=== PATIENT | female | born 1935 | race Caucasian/White ===

== ENCOUNTER 2017-03-03 20:04 | Inpatient (IN) | payer MEDICARE ==
[2017-03-03 20:55] LABS: Hematocrit 34.3 % (36.0-47.0); Red Blood Cell (RBC) Count 3.21 mill/uL (4.20-5.40); White Blood Cell (WBC) Count 7.3 thou/uL (4.8-10.8)
[2017-03-03 20:58] LABS: Prothrombin Time 32.3 SEC (12.0-14.7)
--- NOTE | 2017-03-03 21:02 | RAD ---
ONE VIEW CHEST: History: Difficulty breathing. Comparison: 08-22-16, 08-01-16 FINDINGS: Cardiomegaly. Sternotomy wires are noted. There is atherosclerosis of the aorta. Persistent fullness at the AP window which may represent enlarged atrial appendage versus pulmonary vascular prominence. Findings are similar to previous exam. Small right sided pleural effusion. Left costophrenic angle is clear. Chronic changes in the lung pa renchymal are noted. No pneumothorax. IMPRESSION: 1. Emphysema. 2. Cardiomegaly. Pulmonary vascular prominence. 3. Chronic changes in the right lung base. POS: [facility]
[2017-03-03 21:06] LABS: #Eosinphils 0.1 thou/uL (0.0-0.7); #Lymphocytes 0.4 thou/uL (1.20-3.40); #Monocytes 0.7 thou/uL (0.11-0.59); #Neutrophils 6.2 thou/uL (1.40-6.50); %Eosinophils 0.7 % (0.0-10.0); %Monocytes 9.3 % (0.0-10.0); Macrocytosis SLIGHT = 6-15 cells (100X) (0-5/hpf); Mean Platelet Volume 7.7 fL (7.4-10.4)
[2017-03-03 21:07] LABS: Lactic Acid - Sepsis 1.4 mmol/L (0.5-2.2)
[2017-03-03 21:10] LABS: ALT (SGPT) 9 U/L (8-55); AST (SGOT) 20 U/L (5-34); Alkaline Phosphatase 124 U/L (40-150); Anion Gap 15 mmol/L (10-20); BUN (Urea Nitrogen) 22 mg/dL (9.8-20.1); Bilirubin, Total 1.2 mg/dL (0.2-1.2); CK (CPK) 41 U/L (29-168); Calc. Creatinine Clearance 0 mL/min (70-130); Calcium 8.6 mg/dL (7.8-10.44); Carbon Dioxide 21 mmol/L (23-31); Chloride 103 mmol/L (98-107); Estimated GFR-MDRD 46; Globulin 3.4 g/dL (2.4-3.5); Protein, Total 7.1 g/dL (6.0-8.3)
[2017-03-03 21:15] LABS: Troponin I Less than 0.010 ng/mL (< 0.028)
[2017-03-03] MEDS ORDERED: Furosemide 40 MG/4 ML VIAL ONE (21:45)
[2017-03-03] MEDS ORDERED: Acetaminophen 325 MG TAB PO PRN (23:02)
[2017-03-03] MEDS ORDERED: Ondansetron ODT 4 MG TAB SL PRN (23:02)
[2017-03-03] MEDS ORDERED: Ondansetron HCl/PF 4 MG/2 ML Vial IVP PRN (23:02)
[2017-03-04] MEDS ORDERED: Furosemide 40 MG/4 ML VIAL SLOW IVP SCH (06:00)
[2017-03-04] MEDS ORDERED: cefTRIAXone\\ROCEPHIN 1 GM in Sodium Chloride 0.9% 100 ML IVPB SCH (08:15)
[2017-03-04] MEDS ORDERED: Aspirin 325 MG TAB PO SCH (09:00)
[2017-03-04] MEDS: cefTRIAXone\\ROCEPHIN 1 GM, Syringe 0.4 ML in Sterile Water 9.6 ML SLOW IVP SCH (09:51)
[2017-03-04] MEDS: Carvedilol 3.125 MG TAB PO SCH ×2 (09:52→20:17)
[2017-03-04] MEDS: Clopidogrel Bisulfate 75 MG TAB PO SCH (09:52)
[2017-03-04] MEDS: Azithromycin 500 MG in Sodium Chloride 0.9% 250 ML 250 ML IVPB SCH (09:53)
[2017-03-04] MEDS: Amlodipine 5 MG TAB PO SCH (10:03)
[2017-03-04] MEDS: Losartan Potassium 25 MG TAB PO SCH (10:03)
--- NOTE | 2017-03-04 10:10 | HP ---
DATE: 03/04/2017 at 0822 a.m. HISTORY OF PRESENT ILLNESS: This is an 81-year-old white female with a history of coronary artery d isease, atrial fibrillation who presents with shortness of breath. The patient has a history of atr ial fibrillation followed by Dr. Ward. She has been doing relatively well until approximately 3 weeks ago she developed a cough which has become progressively worse. At this point, she has had marked shortness of breath and difficulty walking. Her daughter finally convinced her to come to [facility]. She has been having a yellow productive cough as well as low grade fever and shortness of breath. She states she has been wheezing significantly. She does not complain of any direct mandi st pain. No complaints of any leg swelling. She is presently on Coumadin and aspirin for her atria l fibrillation. She also has been quite stressed caring for her debilitated . PAST MEDICAL HISTORY: Hypothyroidism, hyperlipidemia, hypertension, coronary artery disease, diabet es, diet controlled, anxiety disorder, chronic atrial fibrillation. PAST SURGICAL HISTORY: 07/2016 - Stent x1 in the obtuse marginal by Dr. Ward. In 06/2015 - [facility] ureteral stent and stone removal by Dr. Gonzales. In 2007, bilateral knee replacement, in 1998 a coronary artery bypass in [place], 1974 partial hysterectomy, in 1974 a cholecystectomy. FAMILY HISTORY: Mother with heart disease. Siblings with heart disease, sister with es ophageal cancer. SOCIAL HISTORY: She is . She has 4 kids. 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 They are wanting to move closer to [place] to their [facility] [employer]. She has no history of tobacco or alcohol use. Her time is spent mostly caring for her hus band. MEDICATIONS: Norvasc 2.5 daily, aspirin 81 daily, Coreg 3.125 b.i.d., Plavix 75 daily, Lasix 40 q.a .m., isosorbide 60 mg daily, levothyroxine 112 mcg daily, losartan 100 daily, pravastatin 40 daily, Zoloft 100 mg daily, Coumadin 2.5 daily. ALLERGIES: IODINE. PHYSICAL EXAMINATION: VITAL SIGNS: Temperature 99.0, pulse 84, respirations 18, pulse ox 95, blood pressure 157/77. GENERAL: Marked respiratory distress. HEENT: Marked nasal drainage and productive cough. TM clear. Throat clear. NECK: Supple. HEART: Irregularly irregular. LUNGS: With bilateral expiratory wheezes, cannot appreciate bibasilar rales. ABDOMEN: Soft, nontender. EXTREMITIES: With no edema. LABORATORY: White count 7.3, H\T\H 11 and 34. INR 3.0, sodium 135, potassium 4.2, creatinine of 1. 13, BUN 22, blood sugar 171. BNP 1025, D-dimer 2.0. ASSESSMENT: 1. Pneumonia, rule out pulmonary embolism. 2. Shortness of breath. 3. Chronic atrial fibrillation. 4. Coronary artery disease. 5. Anxiety. 6. Hypothyroid. 7. Hypertension. 8. Hyperlipidemia. PLAN: 1. Begin IV Rocephin and Zithromax. 2. Albuterol q.4h. 3. VQ scan. The patient is allergic to IODINE. Steroids, Solu-Medrol 40 q.6h. CBC, comprehensive UA, TSH. 4. Consult Dr. Ward. With the patient's productive cough, marked nasal drainage, hoarseness, I feel the patient most like ly has an infectious process going on. It probably began as a viral type syndrome; however, it has progressed over the past 3 weeks. I will start antibiotics and breathing treatments on her as well as Solu-Medrol. Must also rule out pulmonary embolism and congestive heart failure. BNP and D-dime r are elevated; however, this also could be due to pneumonia. We will await Dr. Ward's further recommendation.
[2017-03-04] MEDS ORDERED: Levothyroxine Sodium 112 MCG TAB PO SCH (10:15)
[2017-03-04] MEDS: Albuterol Sulfate 1.25 MG/3 ML NEB NEB PRN ×2 (15:01→23:33)
--- NOTE | 2017-03-04 15:24 | CON ---
DATE OF CONSULTATION: 03/04/2017 REASON FOR CONSULTATION: Atrial fibrillation. REFERRING PROVIDER: Suleman Cabral M.D. HISTORY OF PRESENT ILLNESS: Ms. Mansfield is an 81-year-old woman who was seen and evaluated after ronic persistent atrial fibrillation. She is on Coumadin therapy. She recently presented with the URI-type symptoms and potential pneumonia. She complains of fevers, chills, nausea, cough and conge stion while at home. Heart rate has been in the 60s to 70s. PAST MEDICAL HISTORY: CAD, atrial fibrillation, hyperlipidemia, and hypertension, status post bypas s surgery, stent placement, knee surgery, cholecystectomy, and hysterectomy. ALLERGIES: IODINE. HOME MEDICATIONS: Include Nitrostat p.r.n., levothyroxine, Plavix, Lasix, sertraline, carvedilol, l osartan, pravastatin, Coumadin, Imdur and Norvasc. REVIEW OF SYSTEMS: Ten point review of systems reviewed and as above, otherwise negative. PHYSICAL EXAMINATION: GENERAL: Patient is a pleasant female who is in no acute distress. The patient appears his/her stated age. VITAL SIGNS: Blood pressure 110/66, pulse 69, temperature 98.7. NEUROLOGIC: The patient is alert and oriented times 3 with no focal neurologic deficits. HEENT: Sclerae without icterus. Mouth has moist mucous membranes with normal pallor. NECK: No JVD. Carotid upstroke brisk. No bruits bilaterally. LUNGS: Clear to auscultation with unlabored respirations. BACK: No scoliosis or kyphosis. CARDIAC: Irregularly irregular. No significant rubs, murmurs, thrills, or gallops noted throughout the precordium. PMI is not displ aced. There is no parasternal heave. ABDOMEN: Soft, nontender, nondistended. No peritoneal signs present. No hepatosplenomegaly. No abnormal striae. EXTREMITIES: 2+ femoral and 2+ dorsalis pedis pulses. No cyanosis, clubbing, or edema. SKIN: No gross abnormalities. PERTINENT LABORATORY DATA: Hemoglobin 11.3, creatinine 1.13. INR was 3.0. IMPRESSION: 1. Chronic atrial fibrillation. 2. ? Pneumonia. 3. Coronary artery disease. 4. Status post bypass surgery. RECOMMENDATIONS: From a CV standpoint, Ms. Mansfield appears stable. Her heart rate is in the 60s to 80s and appears rate controlled. Continue Coumadin as prescribed. Antibiotic therapy will be Dr. Suleman Cabral. Last echo dated 06/11/2016 with normal LVEF.
[2017-03-04] MEDS: Warfarin Sodium 2.5 MG TAB PO SCH (16:40)
--- NOTE | 2017-03-04 19:36 | NM ---
VQ SCAN: Date: 03/04/17 HISTORY: Dyspnea. TECHNIQUE: A ventilation perfusion scan was performed using 25.5 mCi Xenon-133 by inhalation for the ventilatio n study followed by the intravenous administration of 5.5 mCi technetium-99m MAA for the perfusion s can. FINDINGS: Correlation is made with the chest radiograph from previous day. There are small subsegmental defects in the left upper lobe and the right lower lobe. A small to mod erate segmental wedge-shaped pleural based perfusion defect is seen in the superior segment of the l eft lower lobe. This may be mismatched. There is mild tracer retention in the washout phase of the v entilation study. IMPRESSION: Intermediate probability for pulmonary embolism. POS: [facility]
[2017-03-04] MEDS: Atorvastatin Calcium 10 MG TAB PO SCH (20:17)
[2017-03-04] MEDS: Aspirin 81 mg Enteric Coated Tablet PO SCH (20:17)
[2017-03-05 05:18] LABS: Prothrombin Time 28.5 SEC (12.0-14.7)
[2017-03-05] MEDS: Levothyroxine Sodium 112 MCG TAB PO SCH (05:30)
[2017-03-05] MEDS: Albuterol Sulfate 1.25 MG/3 ML NEB NEB PRN (07:06)
[2017-03-05] MEDS ORDERED: Furosemide 40 MG TAB PO PRN (07:39)
[2017-03-05] MEDS: Warfarin Sodium 2.5 MG TAB PO SCH ×2 (08:02→19:51)
[2017-03-05 08:05] LABS: #Lymphocytes 0.4 thou/uL (1.20-3.40); #Monocytes 0.2 thou/uL (0.11-0.59); #Neutrophils 4.6 thou/uL (1.40-6.50); %Basophils 0.1 % (0.0-1.0); %Eosinophils 0.1 % (0.0-10.0); %Lymphocytes 6.7 % (21.0-51.0); %Monocytes 3.5 % (0.0-10.0); Hematocrit 35.7 % (36.0-47.0); Mean Platelet Volume 8.6 fL (7.4-10.4); Red Blood Cell (RBC) Count 3.34 mill/uL (4.20-5.40); White Blood Cell (WBC) Count 5.2 thou/uL (4.8-10.8)
[2017-03-05 08:26] LABS: Anion Gap 12 mmol/L (10-20); BUN (Urea Nitrogen) 34 mg/dL (9.8-20.1); Calc. Creatinine Clearance 44 mL/min (70-130); Carbon Dioxide 25 mmol/L (23-31); Chloride 101 mmol/L (98-107); Estimated GFR-MDRD 39
[2017-03-05] MEDS: Azithromycin 500 MG in Sodium Chloride 0.9% 250 ML 250 ML IVPB SCH (08:35)
[2017-03-05] MEDS: Furosemide 40 MG/4 ML VIAL SLOW IVP SCH (08:41)
[2017-03-05] MEDS: Amlodipine 5 MG TAB PO SCH (08:41)
[2017-03-05] MEDS: Clopidogrel Bisulfate 75 MG TAB PO SCH (08:42)
[2017-03-05] MEDS: Carvedilol 3.125 MG TAB PO SCH ×2 (08:42→22:17)
[2017-03-05] MEDS: Losartan Potassium 25 MG TAB PO SCH (08:43)
--- NOTE | 2017-03-05 09:08 | PRG ---
DATE OF SERVICE: 03/05/2017 SUBJECTIVE: Ms. Mansfield is doing better. Her heart rate appears to be well controlled. She is cur rently on antibiotic therapy for bronchitis versus pneumonia. She has been afebrile. OBJECTIVE: VITAL SIGNS: Blood pressure 139/96, pulse 88, temperature 96.5. LUNGS: Clear to auscultation. CARDIAC: Irregularly irregular. ABDOMEN: Soft, nontender, nondistended. EXTREMITIES: No edema. IMPRESSION: 1. Atrial fibrillation. 2. Bronchitis versus pneumonia. RECOMMENDATIONS: 1. Continue Coumadin to achieve an INR 2 to 3. 2. Continue aspirin 81 q.a.m. given history of CAD, status post bypass surgery, in addition to ator vastatin and carvedilol. 3. Continue Plavix given a stent implantation within the last year.
--- NOTE | 2017-03-05 10:29 | PRG ---
DATE OF SERVICE: 03/05/2017 SUBJECTIVE: The patient is doing much better this morning. She has much less labored breathing. S he is feeling much better. Cough has improved significantly. She has remained afebrile. OBJECTIVE: VITAL SIGNS: Temperature 96.5, pulse 89, respirations 16, pulse ox 98 O2 at 2 liters, blood pressur e 139/96. HEART: Irregularly irregular. LUNGS: Markedly decreased expiratory wheezes, decreased bibasilar rales. EXTREMITIES: Extremities with no edema. I's and O's in 1550, out 4830 for a balance of -3180. LABORATORY: Labs pending; CBC, BMP. ASSESSMENT: 1. Pneumonia. 2. Congestive heart failure with a urine output of 5 liters over the past 2 days. 3. Chronic atrial fibrillation. 4. Coronary artery disease. 5. Anxiety. 6. Hypothyroid. 7. Hypertension. 8. Hyperlipidemia. PLAN: 1. Continue antibiotics. 2. Decrease Solu-Medrol to q.8h. 3. Decrease breathing treatments. 4. VQ scan shows intermediate probability; I believe the patient does not have a PE. There is ques tionable mismatch in the right lower lung; however, in the right lower lung base there are chronic c hanges seen on the chest x-ray. 5. Will resume IV Lasix at [address] Ward wants to increase the dose to b.i.d. 6. Will recheck CBC and BMP today. 7. Repeat chest x-ray PA and lateral today. 8. Will continue to follow.
[2017-03-05] MEDS: cefTRIAXone\\ROCEPHIN 1 GM, Syringe 0.4 ML in Sterile Water 9.6 ML SLOW IVP SCH (11:05)
--- NOTE | 2017-03-05 12:01 | RAD ---
CHEST PA AND LATERAL: History: 81-year-old female with follow up pneumonia. Comparison: 08-22-16, 03-03-17 FINDINGS: Post underlying sternotomy with marked cardiomegaly and some prominence of the left atrium. Atherosc lerosis of the aorta with ectasia. Moderate stable right pleural effusion and slight left costophren ic angle blunting. No evidence for confluent pneumonia or overt edema. IMPRESSION: Stable marked cardiomegaly. Bilateral pleural effusions on the right side, stable. No evidence for c onfluent pneumonia. POS: [facility]
[2017-03-05] MEDS: Aspirin 81 mg Enteric Coated Tablet PO SCH (22:15)
[2017-03-05] MEDS: Atorvastatin Calcium 10 MG TAB PO SCH (22:15)
[2017-03-06] MEDS: Levothyroxine Sodium 112 MCG TAB PO SCH (05:50)
[2017-03-06] MEDS: Warfarin Sodium 2.5 MG TAB PO SCH ×2 (08:26→17:20)
[2017-03-06] MEDS: Carvedilol 3.125 MG TAB PO SCH ×2 (08:29→20:58)
[2017-03-06] MEDS: Furosemide 40 MG/4 ML VIAL SLOW IVP SCH (08:29)
[2017-03-06] MEDS: Losartan Potassium 25 MG TAB PO SCH (08:29)
[2017-03-06] MEDS: Amlodipine 5 MG TAB PO SCH (08:30)
[2017-03-06] MEDS: Clopidogrel Bisulfate 75 MG TAB PO SCH (08:30)
[2017-03-06] MEDS: cefTRIAXone\\ROCEPHIN 1 GM, Syringe 0.4 ML in Sterile Water 9.6 ML SLOW IVP SCH (08:30)
--- NOTE | 2017-03-06 08:34 | PRG ---
DATE OF SERVICE: 03/06/2017 SUBJECTIVE: The patient states she is feeling better than yesterday. She continues to improve slow ly. She does complain of constipation. She is anxious to go home. OBJECTIVE: VITAL SIGNS: Temperature 97.7, pulse 58, respirations 16, pulse ox 98 on 2 liters, blood pressure 1 17/70. HEART: Irregularly irregular. LUNGS: Occasional expiratory wheeze. ABDOMEN: Soft. EXTREMITIES: With no edema. LABORATORY: Labs from yesterday; white count 5.2, H\T\H 12 and 35. Sodium 134, potassium 4.1, crea tinine 1.3, BUN 34, blood sugar 206. ASSESSMENT: 1. Pneumonia/bronchitis, continues to improve. The congestion has improved. 2. Chronic atrial fibrillation. 3. Mild congestive heart failure. 4. Coronary artery disease. 5. Anxiety. 6. Hypothyroid. 7. Hypertension. 8. Hyperlipidemia. PLAN: 1. Patient anxious to go home. If the patient does well this afternoon we will consider discharge. 2. Plan to discharge on prednisone and cefdinir x7 days. 3. Discuss Lasix. The patient states she takes this sporadically because it causes her to have inc ontinence. Discussed the importance of taking this regularly. 4. Follow up in the office in 1 week.
--- NOTE | 2017-03-06 08:40 | PQF ---
CLINICAL DOCUMENTATION IMPROVEMENT CLARIFICATION FORM: ICD-10 Updated PLEASE DO AN ADDENDUM TO THE PROGRESS NOTE WITH ANY DOCUMENTATION UPDATES OR ADDITIONS AND CARRY THROUGH TO DC SUMMARY. THANK YOU. DATE: 03/06 ATTN: DR. BRENTON ROSEN Please exercise your independent, professional judgment in responding to the clarification form. Clinical indicators are provided on the bottom of this form for your review Please check appropriate box(s): HEART FAILURE: A.TYPE: [ ] Systolic / HFrEF [ ] Diastolic / HFpEF [ ] Combined Systolic / Diastolic B.ACUITY [ ] Acute[ ] Acute on Chronic [ ] Chronic C.WITH (if appropriate) [ ] Hypertensive Heart Disease[ ] Hypertensive Heart and Kidney Disease [ ] Other diagnosis [ ] Unable to determine For continuity of documentation, please document condition throughout progress notes and discharge summary. Thank You. CLINICAL INDICATORS - SIGNS / SYMPTOMS / LABS ER PRESENTATION 03/03: SOB FOR 3 WEEKS, RA SAT 93% ON ARRIVAL, IMPROVED TO 100 % ON 4L ER PHYSICIAN DOCUMENTATION 03/03: NEW ONSET CHF ATTENDING PHYSICIAN PN 03/05: IMPRESSION: 2. CHF WITH URINE OUTPUT OF 5 LITERS OVER PAST 2 DAYS PLAN: 5. WILL RESUME IV LASIX AT [address] SIMMONS WANTS TO CHANGE TO BID CXR 03/03: SMALL R PLEURAL EFFUSION. IMPRESSION: PULMONARY VASCULAR PROMINENCE BNP: 1025 (03/03); 1156 (03/05) RISKS: CAD S/P CABG & STENT HTN DM II TREATMENTS: IV LASIX (02/21 - PRESENT) TELEMETRY MONITORING ECHO (RESULTS PENDING) CARDIOLOGY CONSULT FOR NEW ONSET CHF THANK YOU! Rachel (This form is maintained as a part of the permanent medical record) 2014 [employer]. All Rights Reserved Rachel Dominguez RN, BSN [email or web address] Office: [phone] [facility]
--- NOTE | 2017-03-06 08:52 | PQF ---
CLINICAL DOCUMENTATION IMPROVEMENT CLARIFICATION FORM: ICD-10 Updated PLEASE DO AN ADDENDUM TO THE PROGRESS NOTE WITH ANY DOCUMENTATION UPDATES OR ADDITIONS AND CARRY THROUGH TO DC SUMMARY. THANK YOU. DATE: 03/06 ATTN: DR. BRENTON ROSEN Please exercise your independent, professional judgment in responding to the clarification form. Clinical indicators are provided on the bottom of this form for your review Please check appropriate box(s): [ ] Pneumonia secondary to (specify organism / underlying disease) [ ] Simple Pneumonia (community acquired - nosocomial) [ ] Bronchopneumonia [ ] Pneumonia of unknown etiology [ ] Other diagnosis [ ] Unable to determine For continuity of documentation, please document condition throughout progress notes and discharge summary. Thank You. CLINICAL INDICATORS - SIGNS / SYMPTOMS / LABS PHYSICIAN H&P DOCUMENTATION 03/04: ASSESSMENT: 1. PNEUMONIA, R/O PULMONARY EMBOLISM; 2. SHORTNESS OF BREATH PLAN: 1. BEGIN IV ROCEPHIN & ZITHROMAX PHYSICIAN PN 03/05: ASSESSMENT: 1. PNEUMONIA; PLAN: 1. CONTINUE ANTIBIOTICS RISK FACTORS ADVANCED AGE SOB W/COUGH X3 WEEKS TREATMENTS: IV ROCEPHIN & ZITHROMAX (03/03 - PRESENT) SUPPLEMENTAL OXYGEN (03/03 - PRESENT) THANK YOU! Rachel (This form is maintained as a part of the permanent medical record) 2014 [employer]. All Rights Reserved Rachel Dominguez RN, BSN [email or web address] Office: [phone] [facility]
[2017-03-06] MEDS: Azithromycin 500 MG in Sodium Chloride 0.9% 250 ML 250 ML IVPB SCH (09:45)
--- NOTE | 2017-03-06 13:29 | PRG ---
DATE OF SERVICE: 03/06/2017 SUBJECTIVE: Ms. Mansfield is doing well. She continues to complain of shortness of breath. No other associated ameliorating or exacerbating factors present. OBJECTIVE: VITAL SIGNS: Blood pressure 117/70, pulse 58 and temperature 97.7. LUNGS: Rales and bilateral wheezing present. HEART: Irregular, irregular. ABDOMEN: Soft, nontender and nondistended. EXTREMITIES: No edema. PERTINENT LABORATORY DATA: Hemoglobin 12. Creatinine 1.3 and potassium 4.1. Telemetry monitoring showed nonsustained VT. IMPRESSION: 1. Atrial fibrillation. 2. Bronchopneumonia. 3. Coronary artery disease. 4. Status post bypass surgery. 5. Nonsustained ventricular tachycardia. RECOMMENDATIONS: 1. Check magnesium, potassium and calcium level. 2. Avoid beta-francois therapy due to active wheezing. 3. Recommend an echo with Doppler to assess LV function and consider EP consult.
[2017-03-06 14:35] LABS: Calcium 8.9 mg/dL (7.8-10.44); Magnesium 2.4 mg/dL (1.6-2.6); Phosphorus 4.2 mg/dL (2.3-4.7)
[2017-03-06] MEDS: Aspirin 81 mg Enteric Coated Tablet PO SCH (20:53)
[2017-03-06] MEDS: Atorvastatin Calcium 10 MG TAB PO SCH (20:53)
[2017-03-07 05:02] LABS: Prothrombin Time 33.4 SEC (12.0-14.7)
[2017-03-07] MEDS: Levothyroxine Sodium 112 MCG TAB PO SCH (05:32)
--- NOTE | 2017-03-07 08:19 | PRG ---
DATE OF SERVICE: 03/07/2017 SUBJECTIVE: The patient continues to improve. Decreased cough and congestion. Breathing much easie r. OBJECTIVE: VITAL SIGNS: Temperature 98.0, pulse 62, respirations 20, pulse ox 94, blood pressure 124/72. HEART: Irregular, irregular. LUNGS: Relatively clear her upper airway noise, but lung bases sound much clearer today. ABDOMEN: Soft, nontender. EXTREMITIES: With no edema. LABORATORY: None. ASSESSMENT: 1. Brief run of nonsustained ventricular tachycardia yesterday, no reoccurrence overnight. 2. Bronchopneumonia. 3. Atrial fibrillation. 4. Coronary artery disease. 5. Mild congestive heart failure. 6. Anxiety. 7. Hypothyroid. 8. Hypertension. 9. Hyperlipidemia. PLAN: 1. We will discuss discharge with Dr. Ward. 2. Plan to discharge on cefdinir and a Medrol Dosepak. 3. If the patient remains in the hospital we will recheck chest x-ray and electrolytes. 4. Discussed with patient the importance of physical activity.
[2017-03-07] MEDS: Clopidogrel Bisulfate 75 MG TAB PO SCH (09:35)
[2017-03-07] MEDS: Amlodipine 5 MG TAB PO SCH (09:35)
[2017-03-07] MEDS: Losartan Potassium 25 MG TAB PO SCH (09:35)
[2017-03-07] MEDS: Azithromycin 500 MG in Sodium Chloride 0.9% 250 ML 250 ML IVPB SCH (09:39)
[2017-03-07] MEDS: Warfarin Sodium 2.5 MG TAB PO SCH ×2 (09:39→17:35)
[2017-03-07] MEDS: Carvedilol 3.125 MG TAB PO SCH (09:40)
[2017-03-07] MEDS: Furosemide 40 MG/4 ML VIAL SLOW IVP SCH (09:41)
[2017-03-07] MEDS: cefTRIAXone\\ROCEPHIN 1 GM, Syringe 0.4 ML in Sterile Water 9.6 ML SLOW IVP SCH (11:00)
--- NOTE | 2017-03-07 12:42 | PRG ---
DATE OF SERVICE: 03/07/2017 SUBJECTIVE: No significant changes noted overnight. PHYSICAL EXAMINATION: VITAL SIGNS: Blood pressure 120/70, pulse 60, temperature 98.2. LUNGS: Mild wheezing bilaterally. CARDIAC: Irregularly irregular. ABDOMEN: Soft, nontender, nondistended. EXTREMITIES: No edema. IMPRESSION: 1. Atrial fibrillation. 2. Nonsustained VT. 3. Accelerated idioventricular rhythm. RECOMMENDATIONS: Ms. Mansfield has been asymptomatic during her rhythm disturbance. Her LVEF is 50-55 %. Unfortunately, beta blockers cannot be used due to wheezing. We will continue to monitor closely . She did have RV pressure overload, but is not felt to be a new finding. This is felt to be chroni c. May consider an outpatient 3-week event recorder to assess for any further dysrhythmias. Would a dd beta francois therapy when not actively wheezing.
[2017-03-07 12:55] VITALS: BMI 27.2
[2017-03-07 17:27] VITALS: BP 135/68; TEMP 97.3
--- NOTE | 2017-03-07 21:03 | DIS ---
DATE OF ADMISSION: 03/03/2017 DATE OF DISCHARGE: 03/07/2017 DISCHARGE DIAGNOSES: 1. Brief run of nonsustained ventricular tachycardia, resolved. 2. Bronchopneumonia. 3. Atrial fibrillation. 4. Coronary artery disease. 5. Mild congestive heart failure. 6. Anxiety. 7. Hypothyroid. 8. Hypertension. 9. Hyperlipidemia. 10. Obesity. DISCHARGE MEDICATIONS: Cefdinir 300 b.i.d. #14, Medrol Dosepak, hold Coreg, Pravachol 40 q. day, Nor vasc 5 q. day, aspirin 81 q. day, Plavix 75 q. day, Lasix 40 q. day, isosorbide 60 q. day, losartan 1 00 q.a.m., sertraline 100 p.o. q.a.m., Coumadin 2.5 p.o. b.i.d. BRIEF HISTORY: This is an 81-year-old white female who presented with a 3-week history of cough, con gestion, and shortness of breath. This became progressively worse and presented to the emergency navid for further evaluation. She was complaining of yellow productive cough as well as low-grade fever. HOSPITAL COURSE: She was admitted. She was started on IV Zithromax and Rocephin. She was also star meghan on neb treatments for wheezing, as well as Solu-Medrol 40 q. 6 hours. Over several days, her michelle al congestion improved and her wheezing improved dramatically. She was also found to have an elevate d BNP and she was given additional doses of IV Lasix in which she diuresed approximately 5 liters in the first 48 hours. At this time, she is doing quite well. An echo was performed, which revealed mi ldly enlarged right ventricle, moderately enlarged right atrium, [id number] mitral regurg, myriam re tricuspid regurg, with an ejection fraction of 50%-55% as well as probable diastolic dysfunction. The patient is doing very well at this time. Her Coreg was held due to the wheezing. She will be d ischarged on the above medications. She will follow up with Dr. Ward as well as myself next wee k. We plan to resume her Coreg once her wheezing resolves. We plan to do an outpatient sleep study to evaluate if the patient has sleep apnea. Discharge white count 5.2, H&H 12 and 35. Sodium 134, p otassium 4.1, creatinine 1.3, BUN 34, blood sugar 206. Last INR 3.1.
== END 2017-03-07 18:20 | disposition home or self-care (01) | DRG 194 ==
LOC: ERS 20:04 → 2NO 21:30
PROVIDERS: ADMIT Family Medicine; ATTEND Family Medicine
DX: J18.0 Bronchopneumonia, unspecified organism (principal); I47.2 Ventricular tachycardia; I48.2 Chronic atrial fibrillation; I11.0 Hypertensive heart disease with heart failure; I50.9 Heart failure, unspecified; I08.1 Rheumatic disorders of both mitral and tricuspid valves; Z79.01 Long term (current) use of anticoagulants; I25.10 Atherosclerotic heart disease of native coronary artery without angina pectoris; Z95.1 Presence of aortocoronary bypass graft; Z95.5 Presence of coronary angioplasty implant and graft; E03.9 Hypothyroidism, unspecified; E78.5 Hyperlipidemia, unspecified; F41.9 Anxiety disorder, unspecified; E66.9 Obesity, unspecified; Z68.27 Body mass index [BMI] 27.0-27.9, adult; K59.00 Constipation, unspecified; Z96.653 Presence of artificial knee joint, bilateral; Z91.041 Radiographic dye allergy status
CPT/HCPCS: 36415; 71010; 71020; 78582; 80048; 80053; 82310; 82550; 82553; 83605; 83735; 83880; 84100; 84484; 85025; 85379; 85610; 85730; 87070; 87077; 87186; 87205; 93005; 93306; 93798; 94640; 94760; 96374; A4216; A9540; A9558; J0456; J0696; J1940; J2920; J7050; J7620

== ENCOUNTER 2017-06-11 08:19 | Outpatient (CLI) | payer MEDICARE ==
--- NOTE | 2017-06-11 09:54 | ULT ---
COMPLETE ABDOMINAL ULTRASOUND: History: Abdominal pain, distention. Comparison: CT abdomen/pelvis 07-02-15. Technique: Multiplanar grayscale and color doppler images were obtained in a complete abdominal ultra sound. FINDINGS: The liver is normal in echogenicity without focal lesions or intrahepatic ductal dilatation. The gall bladder has been removed. The common bile duct is normal measuring 4 mm. A small amount of ascites is seen in the abdomen. The aorta and inferior vena cava are normal in caliber. The visualized portions of the pancreas are u nremarkable. The spleen is normal in echogencity without focal lesions and measures 10.8 cm in length . The kidneys demonstrate normal cortical echogenicity. There is an echogenic focus in the lower pole o f the right kidney measuring 7 mm in size which could represent a nonobstructing renal stone. No calc ifications are seen in the left kidney. No hydronephrosis is seen on either side. The kidneys measure 8.4 and 10.0 cm in length on the right and left, respectively. IMPRESSION: 1. Possible nonobstructing right renal calcification. 2. The right kidney is smaller than the left which is nonspecific but it could represent chronic righ t kidney disease. 3. Small amount of ascites. POS: [facility]
== END 2017-06-11 08:20 | disposition home or self-care (01) ==
LOC: ULT 08:19
PROVIDERS: ATTEND Family Medicine
DX: R14.0 Abdominal distension (gaseous) (principal); R18.8 Other ascites
CPT/HCPCS: 76700

== ENCOUNTER 2017-06-14 10:49 | Outpatient (CLI) | payer MEDICARE | END 2017-06-14 10:50 | disposition home or self-care (01) | LOC: EDSTATUS 11:00 | PROVIDERS: ATTEND Family Medicine | DX: R53.1 Weakness (principal) | CPT/HCPCS: G8978; G8979; G8980 ==

== ENCOUNTER 2017-06-17 07:46 | Outpatient (CLI) | payer MEDICARE ==
[~2017-06-17 07:46] MED LIST: ISOVUE-370 76%-LOCM 1 ML ONE
== END 2017-06-17 07:47 | disposition home or self-care (01) ==
LOC: BICCT 07:46
PROVIDERS: ATTEND Family Medicine
DX: R19.00 Intra-abdominal and pelvic swelling, mass and lump, unspecified site (principal); K57.30 Diverticulosis of large intestine without perforation or abscess without bleeding; K76.0 Fatty (change of) liver, not elsewhere classified; N20.0 Calculus of kidney
CPT/HCPCS: 74177

== ENCOUNTER 2017-06-20 13:01 | Inpatient (IN) | payer MEDICARE ==
[2017-06-20 13:43] LABS: Base Excess-Venous 0.5 mmol/L (-30.0-30.0); Bicarbonate (HCO3v) 25.6 mmol/L (1.0-85.0); CO2 Tension (PvCO2) 41.9 mmHg (41.0-51.0); Calcium, Ionized 1.06 mmol/L (1.12-1.32); Hemoglobin - Calc 13.1 g/dL (12.0-18.0); O2 Tension (PvO2) 34.9 mmHg (35.0-45.0); Potassium 3.9 mmol/L (3.4-4.7); T. Carbon Dioxide 26.9 mmol/L (1.0-85.0); pH (Venous) 7.394 (7.35-7.45); vO2 Saturation-calc 66.7 % (0.0-100.0)
[2017-06-20 13:47] LABS: #Eosinphils 0.1 thou/uL (0.0-0.7); #Lymphocytes 0.6 thou/uL (1.20-3.40); #Monocytes 0.6 thou/uL (0.11-0.59); #Neutrophils 4.3 thou/uL (1.40-6.50); %Basophils 0.4 % (0.0-1.0); %Eosinophils 1.9 % (0.0-10.0); %Lymphocytes 11.1 % (21.0-51.0); %Monocytes 10.2 % (0.0-10.0); %Neutrophils 76.5 % (42.0-75.0); Hemoglobin 11.8 g/dL (12.0-16.0); Mean Corpuscular HGB CONC 32.3 g/dL (32.0-36.0); Mean Corpuscular Hemoglobin 34.2 pg (27.0-31.0); Mean Platelet Volume 7.8 fL (7.4-10.4); Platelet Count 146 thou/uL (130-400); RBC Distribution Width 13.1 % (11.5-14.5); Red Blood Cell (RBC) Count 3.45 mill/uL (4.20-5.40); White Blood Cell (WBC) Count 5.6 thou/uL (4.8-10.8)
--- NOTE | 2017-06-20 14:06 | RAD ---
PORTABLE AP CHEST X-RAY: 06/20/2017 HISTORY: Dyspnea. Increased weight gain and fluid overload. COMPARISON: 03/05/2017 FINDINGS: The cardiac silhouette remains markedly enlarged. The pulmonary vasculature is within normal limits. There has been an interval increase in pleural and parenchymal changes of the right lung base, like ly related to small to moderate sized right pleural effusion and atelectasis. The left lung remains clear. Vascular calcifications are seen in the thoracic aorta. Post surgical changes related to med michael sternotomy are again present. No other interval change. IMPRESSION: 1. Cardiomegaly without overt congestive heart failure. 2. Small to moderate sized right pleural effusion and atelectasis. The right pleural effusion does appear mildly increased from the prior exam. POS: [facility]
[2017-06-20 14:09] LABS: ALT (SGPT) 11 U/L (8-55); AST (SGOT) 25 U/L (5-34); Albumin 3.8 g/dL (3.4-4.8); Alkaline Phosphatase 125 U/L (40-150); Anion Gap 11 mmol/L (10-20); BUN (Urea Nitrogen) 25 mg/dL (9.8-20.1); Bilirubin, Total 1.3 mg/dL (0.2-1.2); CK (CPK) 25 U/L (29-168); Calc. Creatinine Clearance 0 mL/min (70-130); Carbon Dioxide 27 mmol/L (23-31); Chloride 105 mmol/L (98-107); Estimated GFR-MDRD 42; Globulin 3.2 g/dL (2.4-3.5); Glucose 114 mg/dL (83-110); Potassium 3.9 mmol/L (3.5-5.1); Sodium 139 mmol/L (136-145)
[2017-06-20 14:13] LABS: CKMB 1.5 ng/mL (0-6.6); Troponin I 0.027 ng/mL (< 0.028)
[2017-06-20] MEDS ORDERED: Furosemide 40 MG/4 ML VIAL ONE (15:31)
[2017-06-20 17:50] LABS: Troponin I 0.028 ng/mL (< 0.028)
[2017-06-20] MEDS ORDERED: Acetaminophen 325 MG TAB PO PRN (17:57)
[2017-06-20] MEDS ORDERED: Ondansetron ODT 4 MG TAB PO PRN (17:57)
[2017-06-20] MEDS ORDERED: HYDROcodone/Acetaminophen 5/325 mg Tablet PO PRN (17:57)
[2017-06-20 19:45] LABS: PTT 48.8 SEC (22.9-36.1); Prothrombin Time 32.8 SEC (12.0-14.7)
[2017-06-20 20:02] LABS: Troponin I 0.026 ng/mL (< 0.028)
[2017-06-20 20:31] LABS: Hep C IgG Ab Non-Reactive (NonReactive); Hep C Index 0.11 S/CO (0-0.79)
[2017-06-20] MEDS: Famotidine/PF 20 mg/2ml Vial SLOW IVP SCH (21:36)
[2017-06-20 21:42] VITALS: BMI 28.4
[2017-06-20 22:15] LABS: Hemoglobin 10.9 g/dL (12.0-16.0); Platelet Count 124 thou/uL (130-400)
--- NOTE | 2017-06-20 23:14 | HP ---
DATE OF ADMISSION: 06/20/2017 HISTORY OF PRESENT ILLNESS: This is an 81-year-old white female with history of severe tricuspid reg urg, coronary artery disease status post bypass, hypertension, hyperlipidemia, diabetes, who presents with shortness of breath. Patient has been seeing Dr. Ward for the past several years. Approx imately 1 year ago in 07/2016, she underwent a cardiac catheterization and had several stents placed. She has done well since then. Approximately 2 weeks ago, she noted that her abdomen was starting t o swell and she was complaining of increasing fatigue. Abdominal ultrasound was obtained at that [facility] and this was followed by a CAT scan. The CAT scan did reveal a dilated right ventricle as well as evidence of liver cirrhosis and small amount of ascites. She was seen 2 days ago in the office again complaining of increasing abdominal swelling. She was then referred to GI, but is yet to see Dr. Kumari whom she had seen in the distant past. However, last night, she began complaining of increasing abdominal swelling as well as increasing shortness of breath and difficulty breathing. Her legs wer e beginning to swell even more. She presented to the emergency room and noted to have an elevated BN P as well as slightly increasing right pleural effusion. The patient at this time is feeling somewha t better since she presented. She does report that over the past 2 days, she has had increasing abdo deb swelling as well as increasing lower extremity edema and shortness of breath. PAST MEDICAL HISTORY: Hypothyroidism; hyperlipidemia; hypertension; anxiety disorder; shingles; diab etes, diet-controlled; renal stones. PAST SURGICAL HISTORY: Include bilateral knee replacements 2007, bypass surgery in 1998, partial hys terectomy in 1974, cholecystectomy in 1974. Cardiac catheterization with stent placement in 07/[address] Lazaro. FAMILY HISTORY: Father is . Mother is with heart disease. Siblings with heart dis ease, sister with esophageal cancer. SOCIAL HISTORY: She has a distant tobacco history, quit in 1969. She does not drink alcohol. She a nd her are retired from the [employer]. She is . She has 2 sons, two cristhian ghters, 8 grandkids. [place] be closer to her [facility]. MEDICATIONS: Includes warfarin 5 mg every Saturday and Coumadin 2.5 mg all other days, Lasix 40 daily , isosorbide ER 60 mg daily, aspirin 81 mg daily, Plavix 75 mg daily, Zoloft 100 mg daily, levothyrox ine 112 daily, Nitrostat p.r.n., pravastatin 40 daily. ALLERGIES: IODINE. REVIEW OF SYSTEMS: As above. PHYSICAL EXAMINATION: GENERAL: Patient is in mild respiratory distress, sitting in a chair, feeling better than when she f irst presented. HEENT: Clear. NECK: Supple. HEART: Appears to be regular rate. LUNGS: With bibasilar rales with decreased breath sounds on the right base. ABDOMEN: Soft, appears to be more distended than 2 days' prior. EXTREMITIES: With 2+ edema. LABORATORY DATA AND X-RAY FINDINGS: White count 5.6, H&H 11 and 36, platelet 146. Sodium 139, potas sium 3.9, creatinine 1.22, BUN 25, blood sugar 114. BNP 965. AST 25, ALT 11. Chest x-ray shows sli ghtly increased right pleural effusion with cardiomegaly. ASSESSMENT: 1. Right-sided congestive heart failure with an elevated BNP of 965. Appears to be having increasin g right-sided pleural effusion as well as ascites. She just as her [facility] regurg with an elevated right ventricular pressure. Patient ascites may be as a result of right-sided heart failure. 2. Right pleural effusion. 3. Cardiomegaly. 4. Coronary artery disease, status post bypass in 1998. 5. Cardiac stents placed in 07/2016. 6. Ascites may be related to cirrhosis, possibly secondary to fatty liver. However, also may be sim ply to right-sided heart failure, also decided to be further worked up. 7. Hypertension. 8. Hyperlipidemia. 9. Diabetes, diet-controlled. Last A1c on 06/09 was 5.7. 10. Hypothyroid. 11. Atrial fibrillation. PLAN: 1. Consult Dr. Lazaro. 2. Consult Dr. Ward. 3. Echocardiogram. 4. Check INR. 5. See CT report. 6. Hepatitis studies, iron level, and urine culture. We will await further diagnostics and treatmen t per Dr. Ward and Dr. Lazaro.
[2017-06-21 05:49] LABS: #Eosinphils 0.1 thou/uL (0.0-0.7); #Lymphocytes 0.6 thou/uL (1.20-3.40); #Monocytes 0.7 thou/uL (0.11-0.59); #Neutrophils 3.4 thou/uL (1.40-6.50); %Basophils 0.2 % (0.0-1.0); %Eosinophils 1.5 % (0.0-10.0); %Lymphocytes 12.4 % (21.0-51.0); %Monocytes 14.4 % (0.0-10.0); %Neutrophils 71.5 % (42.0-75.0); Hemoglobin 11.1 g/dL (12.0-16.0); Mean Corpuscular HGB CONC 32.5 g/dL (32.0-36.0); Mean Corpuscular Hemoglobin 34.2 pg (27.0-31.0); Platelet Count 128 thou/uL (130-400); RBC Distribution Width 12.9 % (11.5-14.5); Red Blood Cell (RBC) Count 3.25 mill/uL (4.20-5.40); White Blood Cell (WBC) Count 4.7 thou/uL (4.8-10.8)
[2017-06-21 05:57] LABS: ALT (SGPT) 10 U/L (8-55); AST (SGOT) 26 U/L (5-34); Albumin 3.3 g/dL (3.4-4.8); Alkaline Phosphatase 108 U/L (40-150); Anion Gap 13 mmol/L (10-20); BUN (Urea Nitrogen) 23 mg/dL (9.8-20.1); Bilirubin, Total 1.1 mg/dL (0.2-1.2); Calc. Creatinine Clearance 56 mL/min (70-130); Calcium 8.6 mg/dL (7.8-10.44); Carbon Dioxide 22 mmol/L (23-31); Chloride 106 mmol/L (98-107); Estimated GFR-MDRD 49; Globulin 3.2 g/dL (2.4-3.5); Glucose 126 mg/dL (83-110); Potassium 3.9 mmol/L (3.5-5.1); Protein, Total 6.5 g/dL (6.0-8.3); Sodium 137 mmol/L (136-145)
[2017-06-21] MEDS: Levothyroxine Sodium 112 MCG TAB PO SCH (06:03)
--- NOTE | 2017-06-21 07:50 | PRG ---
DATE OF SERVICE: 06/21/2017 SUBJECTIVE: The patient is breathing easier this morning. She states her leg swelling has gone down slightly. No complaints of chest pain, nausea or vomiting. OBJECTIVE: VITAL SIGNS: Temperature 97.8, pulse 80, respirations 20, pulse ox 93, blood pressure 115/64. HEART: Regular rate and rhythm. LUNGS: Decreased breath sounds right base. ABDOMEN: Soft, distended. EXTREMITIES: With 1-2+ edema. LABORATORY: White count 4.7 this morning. H&H 11 and 34. INR is 3.0. Electrolytes normal. Creati nine 1.08, BUN 23. ASSESSMENT: 1. Right-sided congestive heart failure with elevated BNP of 965. Last echocardiogram on 06/2016 sh owed severe tricuspid regurg with elevated right ventricular pressures. This may be contributing to the pleural effusion and the ascites as well as peripheral edema. 2. Right pleural effusion. 3. Cardiomegaly. 4. Coronary artery disease, status post bypass 1998, 5 cardiac stents placed in July 2016. 5. Ascites related to right-sided heart failure, also possibly related to an element of cirrhosis an d fatty liver. 6. Hypertension. 7. Hyperlipidemia. 8. Diabetes, well controlled. 9. Hypothyroid. 10. Atrial fibrillation. PLAN: 1. Consult Dr. Lazaro and Dr. Ward. 2. Echocardiogram. 3. INR elevated at 3.0. We will recheck in the a.m. 4. CT report. 5. Hepatitis studies ordered.
[2017-06-21] MEDS ORDERED: Clopidogrel Bisulfate 75 MG TAB PO SCH (09:00)
[2017-06-21] MEDS: Furosemide 40 MG/4 ML VIAL SLOW IVP SCH ×2 (09:03→15:05)
[2017-06-21] MEDS: Famotidine/PF 20 mg/2ml Vial SLOW IVP SCH ×2 (09:04→21:19)
--- NOTE | 2017-06-21 13:33 | CON ---
DATE OF CONSULTATION: 06/21/2017 REASON FOR CONSULTATION: Shortness of breath. HISTORY OF PRESENT ILLNESS: Ms. Mansfield is a very pleasant 81-year-old woman who I have seen and sarmad luated in the past. She has a previous history of chronic atrial fibrillation on anticoagulation the [facility]. She also appears to have a recent diagnosis of liver disease. She recently presented with marichuy rtness of breath in addition to abdominal swelling. She was seen in the office and sent to the emerg ency room and was subsequently admitted. She has had a profound weight gain over the last several mo nths. Her current weight is 197. In February she weighed 171. She has also had abdominal distentio n. PAST MEDICAL HISTORY: Hyperlipidemia, atrial fibrillation, hypertension, CAD status bypass surgery, stent placement, hyperlipidemia, cholecystectomy, hysterectomy. ALLERGIES: IODINE. HOME MEDICATIONS: Include Nitrostat, levothyroxine, aspirin, sertraline, Pravastatin, Coumadin, Imdu r, Plavix and Lasix. REVIEW OF SYSTEMS: Ten point review of systems is reviewed as above, otherwise negative. PHYSICAL EXAMINATION: VITAL SIGNS: Blood pressure 124/86, pulse 84, temperature 98.4. GENERAL: Patient is a pleasant female who is in no acute distress. The patient appears her stated ag e. NEUROLOGIC: The patient is alert and oriented times 3 with no focal neurologic deficits. HEENT: Sclerae without icterus. Mouth has moist mucous membranes with normal pallor. NECK: No JVD. Carotid upstroke brisk. No bruits bilaterally. LUNGS: Crackles bilaterally. BACK: No scoliosis or kyphosis. CARDIAC: Regular rate and rhythm with normal S1 and S2. No S3 or S4 noted. No significant rubs, mur murs, thrills, or gallops noted throughout the precordium. PMI is not displaced. There is no parast ernal heave. ABDOMEN: Distended with positive fluid wave. EXTREMITIES: 2+ femoral and 2+ dorsalis pedis pulses. No cyanosis, clubbing, or edema. SKIN: No gross abnormalities. PERTINENT LABS: Hemoglobin 11.1, creatinine 1.08. IMPRESSION: 1. Shortness of breath. 2. Acute heart failure of unknown etiology, likely due to right-sided failure. 3. Coronary artery disease. 4. Status post bypass surgery. RECOMMENDATIONS: I agree with use of Lasix. We will repeat her echo to assess LVEF. Her LVEF has b een normal in the past. She has had a mildly elevated right-sided pressures in the past. GI has als o been consulted. She is currently on Lasix IV b.i.d. May consider a pulmonary consult if not felt to be left-sided in origin.
[2017-06-21] MEDS ORDERED: Warfarin Sodium 2.5 MG TAB PO SCH (17:00)
[2017-06-21 21:40] LABS: INR-International Normal Ratio 2.5; PTT 47.8 SEC (22.9-36.1); Prothrombin Time 28.2 SEC (12.0-14.7)
--- NOTE | 2017-06-21 23:17 | CON ---
DATE OF CONSULTATION: 06/21/2017 REASON FOR CONSULTATION: Cirrhosis. HISTORY OF PRESENT ILLNESS: Ms. Mansfield is an 81-year-old female, who was admitted to the hospital o n 06/20/2017 secondary to worsening shortness of breath and some protuberance of the abdomen. She coleman s had a history of coronary artery disease with previous stent placement, but in the past, sometime i n the middle of May, she began to have more abdominal swelling and increased fatigue. Ultrasoun d showed ascites and a CAT scan confirmed this with also some findings of a nodular liver. She has h ad progressive swelling in her legs and her abdomen. She has a chronic pleural effusion, which has b een noted in this admission as well. The patient does not have any prior history of cirrhosis. She denies any history of underlying liver disease that she knows of. She drinks some alcohol, but just very minimally throughout her life. S he has never been a heavy drinker. She was seen in the past for colorectal cancer screening and endo scopy, which has been several years ago. The patient denies any confusion. She denies any falls. S he denies any bleeding or bright red blood per rectum. Her main issue has been cardiac over the past several years. Reviewing her records, her CAT scan on 06/17/2017 shows there is a slightly lobulated appearing right -sided pleural effusion, dilated right atrium, prominent right ventricle, dilated inferior vena cava, fatty changes in the liver with slight "nodular surface of the liver", which could indicate cirrhoti c change. Spleen is borderline size. There was a mild amount of ascites present on that scan. PAST MEDICAL AND SURGICAL HISTORY: Hyperlipidemia, atrial fibrillation, hypertension, coronary arter y disease, previous bypass surgery, previous stent placement, cholecystectomy, hysterectomy. HOME MEDICATIONS: Nitrostat, levothyroxine, aspirin, sertraline, pravastatin, Coumadin, Imdur, Plavi x, and Lasix. MEDICATIONS HERE IN THE HOSPITAL: Tylenol, Plavix, Pepcid, Lasix, [place], Imdur, Synthroid, Zoloft, C oumadin. REVIEW OF SYSTEMS: Negative for confusion. Positive for edema. Negative for dysuria, frequency, ur gency. Negative for hematemesis, melena. Negative for chest pain. ALLERGIES: IODINE CONTRAST, SHELLFISH. PHYSICAL EXAMINATION: GENERAL: Patient is resting comfortably in bed. VITAL SIGNS: Temperature 96, pulse 73, respirations 18, O2 sat 98% on room air, blood pressure 138/6 3. NECK: There is jugular venous distention. LUNGS: She has decreased breath sounds in the right. MUSCULOSKELETAL: There is ecchymosis on her arms from her Coumadin. She has mild peripheral edema. She has mild palmar erythema. CHEST: She has no spider angiomas in the chest. X-RAY FINDINGS: Chest x-ray: Cardiomegaly without overt heart failure. There is a right pleural ef fusion, which is large from her last exam. LABORATORY STUDIES AND IMAGING: White count 4.7, hemoglobin 11.1, around her baseline, MCV 105, plat elet count 128, it has been low since 2015. INR is 3. Sodium 137, potassium 3.9, BUN and creatinine are 23 and 1.08. Bilirubin 1.1, it was 1.3 on admission. AST and ALT are 26 and 10, alkaline phosp hatase is 108. Ferritin 96, albumin 3.3, protein 6.5. TSH 4.1. Most recent echocardiogram in 03/11 17, mild enlarged right ventricle, left atrium is moderately dilated, she has [id number] mitral regurg with severe tricuspid regurg and mild elevated pulmonary pressures, EF of 50%-55%. ASSESSMENT: 1. This is an 81-year-old female with significant history of heart failure, mildly elevated BNP. He r echocardiogram shows severe tricuspid regurgitation with elevated right ventricular pressure. Her CAT scan shows a massively dilated inferior vena cava and slightly nodular liver. There is a low kayal telet count, which would indicate some portal hypertension. I suspect most of these findings are sec ondary to right heart failure and cardiac cirrhosis. She could have some underlying primary liver di sease. She does drink some alcohol, but has not ever been a heavy drinker by her report. Essentiall y, the management will be the same, would be 2 gram sodium diet, combination of Aldactone and Lasix f or diuresis. 2. New onset ascites. This has worsened in the past several weeks. This may represent a deteriorat ion of cardiac function. Could represent some deterioration in her hepatic function, but she has a s table bilirubin, normal liver enzymes and stable albumin. With new onset ascites, she needs a parace ntesis for diagnostic evaluation; however, her INR presently is 3 and she is on Plavix and Coumadin. 3. Coronary artery disease with previous bypass and previous stent placement, 07/2016. Dr. Milind gonzalez reports that she had a recent catheterization with no overt blockages. 4. Hypertension. 5. Hyperlipidemia. 6. Mild anemia with elevated MCV, this could be related to underlying liver disease or alcohol use, which we will need to check a B12 and folate. RECOMMENDATIONS: 1. We need to hold the patient's Coumadin. 2. We will order hepatic workup. 3. We will hold the patient's Plavix as well. 4. I would plan for probably an outpatient paracentesis in the next 5-7 days after Plavix has been o ff and her INR is back down. In the meantime, we will add Aldactone to her Lasix regimen and place h er on a low-sodium diet.
[2017-06-22 05:22] LABS: INR-International Normal Ratio 2.3; Prothrombin Time 26.3 SEC (12.0-14.7)
[2017-06-22 05:55] LABS: Eosinophils 3 % (0-10); Hemoglobin 11.7 g/dL (12.0-16.0); Lymphocytes 12 % (21-51); MDiff Complete? YES; Mean Corpuscular HGB CONC 33.6 g/dL (32.0-36.0); Mean Platelet Volume 7.7 fL (7.4-10.4); Monocytes 15 % (0-10); Neutrophil 70 % (42-75); Platelet Count 131 thou/uL (130-400); RBC Distribution Width 12.9 % (11.5-14.5); Red Blood Cell (RBC) Count 3.33 mill/uL (4.20-5.40); White Blood Cell (WBC) Count 4.2 thou/uL (4.8-10.8)
[2017-06-22 06:01] LABS: Ferritin 99.27 ng/mL (10-291)
[2017-06-22 06:02] LABS: HBSAB Concentration 0.07 mIU/mL; Hep B Surf AB Non-Reactive (NonReactive)
[2017-06-22] MEDS: Furosemide 40 MG/4 ML VIAL SLOW IVP SCH ×2 (06:34→14:28)
[2017-06-22] MEDS: Levothyroxine Sodium 112 MCG TAB PO SCH (06:34)
[2017-06-22] MEDS: Spironolactone 100 MG TAB PO SCH (08:24)
[2017-06-22] MEDS: Famotidine/PF 20 mg/2ml Vial SLOW IVP SCH (08:25)
[2017-06-22 09:17] LABS: Hepatitis A Total ABS Positive (Negative)
--- NOTE | 2017-06-22 14:38 | PDOC.CTH ---
<Sandra Brock - Last Filed: 06/22/17 14:34> Cardiology Progress Note - Subjective The pt seen and examined. No overnight events. No cardiac complaints. she reported that she has lost 11 lbs so far and can breath better. - Objective Vital Signs Temp Pulse Resp BP Pulse Ox 06/22/17 11:32 97.5 F L 74 18 140/81 94 L 06/22/17 08:25 98.2 F 74 18 92 L 06/22/17 08:20 98.2 F 74 18 125/75 92 L 06/22/17 04:00 97.5 F L 69 20 114/61 92 L Admit Weight 192 lb 8 oz Weight 185 lb 1.6 oz 06/21/17 06/22/17 06/23/17 06:59 06:59 06:59 Intake Total 480 840 Output Total 950 1500 Balance -470 -660 - Physical Examination General/Neuro: alert & oriented x3 Neck: no JVD present Lungs: CTA Heart: other: (irregular) Abdomen: soft Extremities: other: (3-4+ pitting edema to LLE. She denied pain to the site.) - Telemetry Telemetry Rhythm: Afib 80-90s - Labs Result Diagrams: 06/22/17 05:01 06/21/17 05:06 Troponin/CKMB CK-MB (CK-2) 1.5 ng/mL (0-6.6) 06/20/17 13:37 Troponin I 0.026 ng/mL (< 0.028) 06/20/17 19:14 - Assessment/Plan 1. Acute on Chronic Rt side HF - improving; The pt reported she has lost 11 lbs over 1 day with Lasix IV BID; Start Coreg 3.125mg BID and Lisinopril 2.5mg daily ; cont. to monitor 2. Ascites due to Rt side HF and Cardiac cirrhosis - on Aldacotone and Lasix; possible paracentesis as outpt 3. CAD with Hx of CABG and s/p stent placement in 07/2016 - Plavix is on hold due to dx of Cirrhosis. Cont. monitor 4. Chronic Afib - Well controlled HR; Coumadin is on hold due to dx of Cirrhosis. cont. to monitor on tele 5. HTN - Start Coreg 3.125mg BID and Lisinopril 2.5mg daily for CHF; cont. to monitor 6. Hypothyroidism - managed by PCP MAR reviewed Review of Systems - Review of Systems Constitutional: reports: no symptoms reported EENTM: reports: no symptoms reported Respiratory: reports: see HPI Cardiac (ROS): reports: no symptoms reported ABD/GI: reports: no symptoms reported : reports: no symptoms reported Musculoskeletal: reports: no symptoms reported Skin: reports: no symptoms reported <Ree Vogt - Last Filed: 06/22/17 16:15> Cardiology Progress Note - Objective Vital Signs Temp Pulse Resp BP Pulse Ox 06/22/17 11:32 97.5 F L 74 18 140/81 94 L 06/22/17 08:25 98.2 F 74 18 92 L 06/22/17 08:20 98.2 F 74 18 125/75 92 L Admit Weight 192 lb 8 oz Weight 185 lb 1.6 oz 06/21/17 06/22/17 06/23/17 06:59 06:59 06:59 Intake Total 480 840 Output Total 950 1500 Balance -470 -660 - Labs Result Diagrams: 06/22/17 05:01 06/21/17 05:06 Troponin/CKMB CK-MB (CK-2) 1.5 ng/mL (0-6.6) 06/20/17 13:37 Troponin I 0.026 ng/mL (< 0.028) 06/20/17 19:14 - Assessment/Plan Pt. seen and eval. by me. I agree with the above A/P by the [facility]. Chest clear but decreased breath sounds. Lower leg edema has improved.
--- NOTE | 2017-06-22 15:47 | PRG ---
DATE OF SERVICE: 06/22/2017 Ms. Mansfield states she has got a lot of weight off with a fluid medicine. She has no complaints. OBJECTIVE: VITAL SIGNS: Temperature 97, pulse 84, blood pressure 140/81. In's and out's are negative 660 and n egative 470 yesterday. Weight is 185; 192 on the 2nd. ABDOMEN: Soft, still protuberant abdomen without rebound or guarding. LABORATORY STUDIES: White count 4.2, hemoglobin 11.7, platelet count 131. INR 2.3. Sodium 137, pot assium 3.9, BUN and creatinine 23 and 1.08, bilirubin is 1.1, AST and ALT are 26 and 10, albumin 3.3, protein 6.5. IgG and IgM negative, hepatitis A antibody total was positive, B and C are negative. ASSESSMENT: New onset ascites. She does have a slightly nodular liver on the CT scan with quite a b it of equivocation on the part of Radiology, which she does have very dilated inferior vena cava, sev ere tricuspid regurgitation, and a history of heart failure I suspect. Most of her problem is relate d to right heart failure. We have added diuretics with this. Ideally a paracentesis will be next, a lthough she is anticoagulated and waiting for the Coumadin to wear off. Serologic workup for other u nderlying cause of liver disease is pending. The management will be the same as that of right heart failure with Aldactone and Lasix diuretics, optimization of cardiac function, and low salt diet. We would continue to monitor electrolytes closely and monitor daily weights.
[2017-06-22] MEDS: Carvedilol 3.125 MG TAB PO SCH (18:06)
[2017-06-22] MEDS: Famotidine 20 MG TAB PO SCH (20:40)
[2017-06-22 21:22] LABS: Hemoglobin 11.2 g/dL (12.0-16.0); Platelet Count 133 thou/uL (130-400)
[2017-06-22 21:35] LABS: INR-International Normal Ratio 1.9; PTT 41.2 SEC (22.9-36.1); Prothrombin Time 22.5 SEC (12.0-14.7)
[2017-06-23] MEDS: Nitroglycerin 0.4 MG TAB (25 Tab Bottle) ONE ×2 (05:25→05:33)
[2017-06-23] MEDS: Levothyroxine Sodium 112 MCG TAB PO SCH (05:40)
[2017-06-23] MEDS: Furosemide 40 MG/4 ML VIAL SLOW IVP SCH (08:04)
[2017-06-23 09:09] LABS: Hepatitis A Total ABS Positive (Negative)
[2017-06-23] MEDS: Carvedilol 3.125 MG TAB PO SCH ×2 (09:30→16:37)
[2017-06-23] MEDS: Spironolactone 100 MG TAB PO SCH (09:30)
[2017-06-23] MEDS: Famotidine 20 MG TAB PO SCH ×2 (09:30→20:47)
--- NOTE | 2017-06-23 12:11 | PDOC.CTH ---
<Sandra Brock - Last Filed: 06/23/17 12:09> Cardiology Progress Note - Subjective The pt seen and examined. No overnight events. She felt SOB with RA. Her O2 sat was 88% with RA and up to 97% with 2LNC. - Objective Vital Signs Temp Pulse Resp BP Pulse Ox 06/23/17 08:00 98.1 F 64 18 125/58 L 97 06/23/17 03:56 98.0 F 69 12 105/62 92 L Admit Weight 192 lb 8 oz Weight 180 lb 4.8 oz 06/22/17 06/23/17 06/24/17 06:59 06:59 06:59 Intake Total 840 1160 240 Output Total 1500 1200 Balance -660 -40 240 - Physical Examination General/Neuro: alert & oriented x3 Neck: no JVD present Lungs: other: (coases and diminished at bases) Heart: other: (irregular) Abdomen: soft Extremities: other: (1+ pitting edema to LLE.) - Telemetry Telemetry Rhythm: Afib 60s - Labs Result Diagrams: 06/22/17 21:12 06/21/17 05:06 Troponin/CKMB CK-MB (CK-2) 1.5 ng/mL (0-6.6) 06/20/17 13:37 Troponin I 0.026 ng/mL (< 0.028) 06/20/17 19:14 - Assessment/Plan 1. Acute on Chronic Rt side HF - stable; she has lost 11 lbs over 1 day with Lasix IV BID; on Lasix, Coreg 3.125mg BID and Lisinopril 2.5mg daily; cont. to monitor 2. Ascites due to Rt side HF and Cardiac cirrhosis - on Aldacotone and Lasix; possible paracentesis whe INR is down 3. CAD with Hx of CABG and s/p stent placement in 07/2016 - Plavix is on hold due to dx of Cirrhosis. Cont. monitor 4. Chronic Afib - Well controlled HR; Coumadin is on hold due to dx of Cirrhosis. cont. to monitor on tele 5. HTN - Stable; cont. to monitor 6. Hypothyroidism - managed by PCP MAR reviewed Review of Systems - Review of Systems Constitutional: reports: no symptoms reported EENTM: reports: no symptoms reported Respiratory: reports: see HPI Cardiac (ROS): reports: no symptoms reported ABD/GI: reports: no symptoms reported : reports: no symptoms reported Musculoskeletal: reports: no symptoms reported Skin: reports: no symptoms reported Neurological: reports: no symptoms reported <Ree Vogt - Last Filed: 06/25/17 11:12> Cardiology Progress Note - Objective Admit Weight 192 lb 8 oz Weight 177 lb 9.6 oz 06/24/17 06/25/17 06/26/17 06:59 06:59 06:59 Intake Total 1090 Output Total 2100 400 Balance -1010 -400 - Labs Result Diagrams: 06/24/17 05:09 06/24/17 05:09 Troponin/CKMB CK-MB (CK-2) 1.5 ng/mL (0-6.6) 06/20/17 13:37 Troponin I 0.026 ng/mL (< 0.028) 06/20/17 19:14 - Assessment/Plan pt. seen and eval. by me. i agree with the A/P by the [facility]. No new complaints.
--- NOTE | 2017-06-23 13:24 | PRG ---
DATE OF SERVICE: 06/23/2017 SUBJECTIVE: Ms. Mansfield is feeling a little bit better. She is diuresing well. She had a little bi t of stomach pain this morning, but that has gone away. OBJECTIVE: VITAL SIGNS: Temperature is 98, pulse 64, blood pressure 125/58 and weight down to 180. She is down 12 pounds since admission. LUNGS: Clear. HEART: Regular rhythm. ABDOMEN: Much softer, less distended, but there is still a little bit of fluid wave. EXTREMITIES: Have no edema now. LABORATORY DATA: Glucose 121 today. Workup for underlying liver disease is still pending, but negat nicolasa so far. ASSESSMENT: Ascites "possible nodular liver" per radiology report. This is all likely cardiac disea se related to right heart failure as noted in previous reports. Workup for underlying liver disease is pending. RECOMMENDATIONS: 1. Recheck renal function tomorrow. She has diuresed quite heavily. We will back off on her diuret ics to Lasix p.o. 40 once a day in the morning and Aldactone 100 in the evening. 2. We will check INR tomorrow and try to obtain a diagnostic paracentesis if coagulation studies are acceptable.
[2017-06-23] MEDS: Lisinopril 2.5 MG TAB PO SCH (16:37)
[2017-06-23] MEDS ORDERED: Sodium Chloride 0.9% 10 ML ONE (20:30)
[2017-06-23 21:09] LABS: INR-International Normal Ratio 1.5; PTT 35.5 SEC (22.9-36.1); Prothrombin Time 18.9 SEC (12.0-14.7)
[2017-06-24] MEDS: Levothyroxine Sodium 112 MCG TAB PO SCH (05:08)
[2017-06-24 05:34] LABS: INR-International Normal Ratio 1.5; Prothrombin Time 18.6 SEC (12.0-14.7)
[2017-06-24 06:01] LABS: #Basophils 0.1 thou/uL (0.0-0.2); #Eosinphils 0.1 thou/uL (0.0-0.7); #Lymphocytes 0.7 thou/uL (1.20-3.40); #Monocytes 0.6 thou/uL (0.11-0.59); %Basophils 1.1 % (0.0-1.0); %Eosinophils 1.3 % (0.0-10.0); %Lymphocytes 14.9 % (21.0-51.0); %Monocytes 14.3 % (0.0-10.0); %Neutrophils 68.5 % (42.0-75.0); Hemoglobin 11.8 g/dL (12.0-16.0); Mean Corpuscular HGB CONC 32.9 g/dL (32.0-36.0); Mean Corpuscular Hemoglobin 35.6 pg (27.0-31.0); Mean Platelet Volume 8.3 fL (7.4-10.4); PLT Morphology Comment Appears Adequate; Platelet Count 130 thou/uL (130-400); RBC Distribution Width 12.7 % (11.5-14.5); Red Blood Cell (RBC) Count 3.31 mill/uL (4.20-5.40); White Blood Cell (WBC) Count 4.5 thou/uL (4.8-10.8)
[2017-06-24 06:07] LABS: ALT (SGPT) 11 U/L (8-55); AST (SGOT) 22 U/L (5-34); Albumin 3.7 g/dL (3.4-4.8); Alkaline Phosphatase 112 U/L (40-150); Anion Gap 12 mmol/L (10-20); BUN (Urea Nitrogen) 25 mg/dL (9.8-20.1); Bilirubin, Total 1.5 mg/dL (0.2-1.2); Calc. Creatinine Clearance 42 mL/min (70-130); Calcium 9.1 mg/dL (7.8-10.44); Carbon Dioxide 33 mmol/L (23-31); Chloride 97 mmol/L (98-107); Estimated GFR-MDRD 38; Glucose 104 mg/dL (83-110); Magnesium 2.2 mg/dL (1.6-2.6); Potassium 4.1 mmol/L (3.5-5.1); Protein, Total 6.7 g/dL (6.0-8.3); Sodium 138 mmol/L (136-145)
[2017-06-24] MEDS ORDERED: Furosemide 40 MG TAB PO SCH (07:30)
[2017-06-24] MEDS ORDERED: Sodium Bicarbonate 2.4 MEQ/5 ML ONE (07:47)
--- NOTE | 2017-06-24 08:01 | PRG ---
DATE OF SERVICE: 06/24/2017 SUBJECTIVE: The patient is doing well and wanted to go home. Breathing much easier. OBJECTIVE: VITAL SIGNS: Temperature 97.4, pulse 87, respirations 16, pulse ox 95, blood pressure 110/71. HEART: Regular rate and rhythm with a systolic/diastolic murmur. LUNGS: Clear, improved right lung base breath sounds. ABDOMEN: Soft. Decreased distention. LABORATORY: Sodium 138, potassium 4.1, creatinine 1.33, BUN 25. White count 4.5, H&H 11 and 35. IN R 1.5. ASSESSMENT: 1. Acute on chronic right-sided heart failure, on Lasix, Coreg and lisinopril. Has lost 15 pounds s [place] admission. 2. Ascites due to right-sided heart failure and cirrhosis on Aldactone and Lasix. INR is down to 1. 5. Probable paracentesis today. 3. Coronary artery disease with history of coronary artery bypass graft and status post stent placem ent, Plavix on hold. 4. Chronic atrial fibrillation. Coumadin on hold. 5. Hypertension. 6. Hyperlipidemia. 7. Diabetes, controlled. 8. Hypothyroidism. 9. History of atrial fibrillation. PLAN: 1. Probable paracentesis today. 2. Continue to diurese. 3. Probable discharge soon.
--- NOTE | 2017-06-24 08:43 | PRG ---
DATE OF SERVICE: 06/24/2017 Ms. Mansfield is scheduled for paracentesis today. She has had a 15 pound weight loss over the weekend . PHYSICAL EXAMINATION: VITAL SIGNS: Blood pressure 110/71, pulse 87, temperature is 97.4. LUNGS: Clear to auscultation. CARDIAC: Irregularly irregular. ABDOMEN: Distended. EXTREMITIES: 1+ pitting edema. PERTINENT LABORATORY DATA: Hemoglobin 11.8. IMPRESSION: Right-sided heart failure. RECOMMENDATIONS: Mr. Mansfield's differential diagnosis includes restrictive pericarditis versus pulmo nary embolism versus chronic obstructive pulmonary disease with sleep apnea. She appears to be impro ving. Would recommend stopping Plavix and just continuing Coumadin for now. She would like to go ho me and if stable, would be okay from my standpoint. Would continue spironolactone in addition to Las ix and carvedilol. PE less likely in the differential diagnosis given that she is on chronic anticoa gulation therapy.
[2017-06-24] MEDS: Famotidine 20 MG TAB PO SCH (09:29)
[2017-06-24] MEDS: Spironolactone 100 MG TAB PO SCH (09:29)
[2017-06-24] MEDS: Carvedilol 3.125 MG TAB PO SCH ×2 (09:29→16:27)
[2017-06-24 10:08] LABS: BF Color Red; Body Fluid Source Ascites Body Fluid; Clarity Cloudy/Turbid (Clear); RBC Background Count 0.007; Tube # EDTA
[2017-06-24 10:09] LABS: RBC Count-Automated 27000 /cumm; WBC/NonHematic-Auto 348 /cumm
--- NOTE | 2017-06-24 10:25 | ULT ---
ULTRASOUND GUIDED PARACENTESIS: Date: 06/24/17 HISTORY: Ascites. New onset. COMPARISON: None. FINDINGS: Technically successful diagnostic ultrasound guided paracentesis. A total of 10 mL of slightly red-co lored ascites aspirated. There were no immediate or postprocedure complication. TECHNIQUE: Consent obtained from an ultrasound guided paracentesis. The patient's abdomen was evaluated. Right l ower quadrant was deemed appropriate. Under ultrasound guidance, a 22 gauge spinal needle was advance d into the peritoneal space. 10 ML of slightly yellow-colored ascites was removed. The patient tolera meghan the procedure well. No immediate or postprocedure complications. IMPRESSION: Technically successful ultrasound guided paracentesis. POS: [facility]
--- NOTE | 2017-06-24 11:30 | EKG ---
Test Reason : Blood Pressure : / mmHG Vent. Rate : 063 BPM Atrial Rate : 081 BPM P-R Int : 000 ms QRS Dur : 088 ms QT Int : 470 ms P-R-T Axes : 000 112 193 degrees QTc Int : 480 ms Atrial fibrillation Right axis deviation Septal infarct (cited on or before 03-MAR-2017) Abnormal ECG When compared with ECG of 20-JUN-2017 13:14, No significant change was found Confirmed by DR. Rolly MAYES (3) on 06/24/2017 11:29:37 AM Referred By: JESSIKA Confirmed By:DR. Rolly MAYES
[2017-06-24 11:54] LABS: BF Segmented Neutrophils 22 %; Cell Count Non Hematic 52 %; Lymphocytes 26 %
[2017-06-24 12:14] LABS: Mitochondrial (M2) Antibody 5.1 Units (0.0-20.0)
--- NOTE | 2017-06-24 12:18 | PRG ---
DATE OF SERVICE: 06/24/2017 SUBJECTIVE: Ms. Mansfield has no acute complaints today. OBJECTIVE: VITAL SIGNS: Temperature 97.2, pulse 65, blood pressure 112/61. GENERAL: She is in no acute distress. She is awake and alert. LUNGS: Clear to auscultation bilaterally. HEART: Regular rate and rhythm. ABDOMEN: Soft, minimal distention. Bowel sounds are present. EXTREMITIES: No lower extremity edema. IMPRESSION: Ascites. Her abdomen is soft now and she does not have tense ascites or significant abd ominal distention. She underwent paracentesis today with a diagnostic tap with 10 mL of fluid remove d. Studies will be sent for serum-ascites albumin gradient. Fluid total protein will also be evalua meghan for. It is suspected that the ascites is primarily secondary to right heart failure and tricuspi d regurgitation. However, she also could have underlying cirrhosis secondary to the same process. S igns of cirrhosis include her low platelet count and possible slightly nodular liver by imaging. Her bilirubin is slightly elevated and her AST is greater than the ALT. Her alpha fetoprotein is normal . Treatment at this point is a low salt diet and diuretics. RECOMMENDATIONS: 1. Low salt diet. 2. She is on furosemide and spironolactone. 3. She can follow up in GI clinic for chronic management in 2-3 weeks. I will sign off for now. Please call if GI can be of assistance.
[2017-06-24 13:15] LABS: Smooth Muscle Total ABS 17 Units (0-19)
[2017-06-24 13:31] LABS: ANA Symphony (Qualitative) Negative (Negative); ANA Symphony (Quantitative) 0.3 Ratio (<0.7 Negative)
[2017-06-24 15:27] LABS: Hep B Surface AG-Rflx Sendout Negative (Negative); Hepatitis B Core IgM AB Negative (Negative); Hepatitis B Core Total Negative (Negative); Hepatitis B Surface AB-Sendout Non Reactive (.)
[2017-06-24 16:26] VITALS: BP 132/64; TEMP 97.6
[2017-06-24] MEDS: Lisinopril 2.5 MG TAB PO SCH (16:26)
--- NOTE | 2017-06-25 07:56 | ADD-PRG ---
ADDENDUM TO NOTE DATED: 06/24/2017 HISTORY OF PRESENT ILLNESS: Ms. Mansfield did have 12 beats of nonsustained VT. She has a history of atrial fibrillation. Her LVEF estimated at 45-50%. She also has underlying coronary disease. I did visit with Ms. Mansfield. She has not had any episodes of syncope or presyncope. Her magnesium and potassium levels were within normal limits. At this point, I recommend a 3-week event recorder to assess for any significant dysrhythmias. She i s currently on beta francois therapy and would continue. Otherwise, I have no further recommendation s.
[2017-06-25 12:17] LABS: A1 Antitrypsin Phenotype Inter MZ (.); Alpha-1-Antitrypsin 114 mg/dL (90-200)
--- NOTE | 2017-06-25 15:15 | DIS ---
DATE OF ADMISSION: 06/20/2017 DATE OF DISCHARGE: 06/24/2017 DISCHARGE DIAGNOSES: 1. Acute on chronic right-sided heart failure. 2. Ascites secondary to #1. 3. Cirrhosis. 4. Coronary artery disease, status post bypass grafting and stent placement. 5. Chronic atrial fibrillation. 6. Hypertension. 7. Hyperlipidemia. 8. Diabetes, controlled. 9. Hypothyroidism. 10. History of atrial fibrillation. CONSULTANTS: 1. Dr. Ward 2. Dr. Lazaro. BRIEF HISTORY: This is an 82-year-old white female with a history of severe tricuspid regurgitation, coronary artery disease, hypertension, hyperlipidemia, diabetes, who presented with shortness of lorraine ath. She has been seeing Dr. Ward for the past several years. Approximately 1 year ago, she un derwent a cardiac catheterization had several stents placed. Since then she has done well. Approxim ately 2 weeks ago, she began noticed her abdomen beginning to swell and increasing fatigue. Abdomina l ultrasound was obtained as well as a CAT scan, which did reveal dilated right ventricle as well as evidence of liver cirrhosis and small amounts of ascites. Two days prior she being placed, complaine d of increasing abdominal swelling. However, the night before admission she had the abdominal swelli ng became much worse with increasing shortness of breath and she presented to the emergency room for further evaluation. Her BNP was noted to be elevated as well as an increasing right pleural effusion . HOSPITAL COURSE: She was seen by Dr. Lazaro and Dr. Ward. The patient was started on spironolac tone and her Lasix was increased. Over her hospital stay, she diuresed a significant amount of fluid . She lost approximately 15 pounds while in the hospital. Her breathing was becoming much easier an d less labored. Her abdominal swelling decreased markedly. Her peripheral edema also resolved. She is doing well at this time, we will be discharged home. She will follow up with myself in the [facility] in the next several days. She will follow up also with Dr. Ward and Dr. Lazaro. The patient is well aware that she has a severe right tricuspid valve regurgitation causing her right-sided heart failure as well as her ascites. At this time, we will continue to control medically. The patient i s a poor candidate for surgery. We will continue to follow as an outpatient. LABORATORY DATA: White count is 4.5, H and H 11 and 35. Sodium 138, potassium 4.1, creatinine 1.33, BUN 25 and hepatitis studies revealed a positive history of hepatitis A in the past. Otherwise, hep atitis B and C were negative. LULY screen was negative. She did have an elevated anti-double strande d DNA IgG antibody. I will continue workup as an outpatient.
== END 2017-06-24 18:25 | disposition home or self-care (01) | DRG 292 ==
LOC: ERS 13:01 → 2NO 15:07
PROVIDERS: ADMIT Family Medicine; ATTEND Family Medicine
PROC: 0W9G3ZZ Drainage of Peritoneal Cavity, Percutaneous Approach (ICD-10-PCS; principal; 2017-06-24)
DX: I11.0 Hypertensive heart disease with heart failure (principal); R18.8 Other ascites; I07.1 Rheumatic tricuspid insufficiency; E11.9 Type 2 diabetes mellitus without complications; I48.2 Chronic atrial fibrillation; Z95.1 Presence of aortocoronary bypass graft; I50.813 Acute on chronic right heart failure; I25.10 Atherosclerotic heart disease of native coronary artery without angina pectoris; E78.5 Hyperlipidemia, unspecified; Z95.5 Presence of coronary angioplasty implant and graft; E03.9 Hypothyroidism, unspecified; Z96.653 Presence of artificial knee joint, bilateral; Z87.891 Personal history of nicotine dependence; Z79.82 Long term (current) use of aspirin; Z79.01 Long term (current) use of anticoagulants
CPT/HCPCS: 36415; 36416; 49083; 71045; 74177; 80053; 82042; 82103; 82104; 82105; 82140; 82330; 82390; 82550; 82553; 82728; 82803; 83516; 83540; 83550; 83735; 83880; 84100; 84157; 84484; 85025; 85060; 85610; 85730; 86038; 86225; 86704; 86705; 86706; 86707; 86708; 86803; 86850; 86900; 86901; 86922; 87086; 87340; 87350; 88112; 88305; 89051; 93005; 93010; 93306; 93798; 94640; 94760; 96374; A4216; J1940; J7620; S0028

== ENCOUNTER 2018-06-20 00:08 | Emergency (ER) | payer MEDICARE | END 2018-06-20 01:56 | disposition home or self-care (01) | LOC: ERS 00:08 | DX: L76.22 Postprocedural hemorrhage of skin and subcutaneous tissue following other procedure (principal); I11.0 Hypertensive heart disease with heart failure; I50.9 Heart failure, unspecified; I25.2 Old myocardial infarction; I48.91 Unspecified atrial fibrillation; Z79.899 Other long term (current) drug therapy; Z79.01 Long term (current) use of anticoagulants; Z79.82 Long term (current) use of aspirin | CPT/HCPCS: 99282 ==

== ENCOUNTER 2018-12-12 10:51 | Inpatient (IN) | payer MEDICARE ==
[2018-12-12 12:15] LABS: Bilirubin Small (Negative); Blood, Urine Large (Negative); Glucose, Urine (Dipstick) Negative (Negative); Leukocyte Small (Negative); Nitrite Negative (Negative); Protein, Urine (Dipstick) 100 mg/dL (Neg-Trace); Urobilinogen 0.2 mg/dL (Less than 2)
[2018-12-12] MEDS ORDERED: Piperacillin/Tazobactam 4.5 GM VIAL ONE (12:15)
[2018-12-12 12:16] LABS: Clarity Cloudy (Clear)
[2018-12-12 12:19] LABS: #Eosinphils 0.1 thou/uL (0.0-0.7); #Lymphocytes 0.8 thou/uL (1.20-3.40); #Monocytes 1.1 thou/uL (0.11-0.59); %Basophils 0.1 % (0.0-1.0); %Eosinophils 0.7 % (0.0-10.0); %Lymphocytes 7.9 % (21.0-51.0); %Monocytes 11.4 % (0.0-10.0); %Neutrophils 79.9 % (42.0-75.0); Hemoglobin 12.6 g/dL (12.0-16.0); Mean Corpuscular HGB CONC 33.7 g/dL (32.0-36.0); Mean Corpuscular Hemoglobin 33.8 pg (27.0-31.0); Mean Platelet Volume 9.2 fL (7.4-10.4); Platelet Count 130 thou/uL (130-400); RBC Distribution Width 11.9 % (11.5-14.5); Red Blood Cell (RBC) Count 3.73 mill/uL (4.20-5.40)
[2018-12-12 12:23] LABS: Bacteria/HPF 3+ HPF (None Seen); RBC/HPF Greater than 50 HPF (0-3)
[2018-12-12 12:27] LABS: INR-International Normal Ratio 2.6; PTT 55.4 SEC (22.9-36.1); Prothrombin Time 27.4 SEC (12.0-14.7)
--- NOTE | 2018-12-12 12:32 | ULT ---
EXAM: Right lower extremity venous Doppler US HISTORY: Right lower extremity edema and pain FINDINGS: Grayscale, color-flow, Doppler evaluation, spectral analysis of the right lower extremity venous stru ctures is performed with 2-D imaging. The right common femoral, superficial femoral, popliteal, posterior tibial, proximal greater saphenous and profunda femoral veins are imaged. There is normal luminal compressibility, flow, and augmentation the visualized deep venous structures of the right lower extremity. IMPRESSION: No evidence of a deep vein thrombosis in the right lower extremity.
--- NOTE | 2018-12-12 12:34 | RAD ---
Exam:2 views right tibia HISTORY: Pain. COMPARISON: None FINDINGS: Uncomplicated, incompletely evaluated right knee arthroplasty. No fracture. No cortical irr egularity or periosteal reaction. Vascular calcifications are noted. IMPRESSION: Unremarkable exam.
[2018-12-12 13:31] LABS: ALT (SGPT) 14 U/L (8-55); AST (SGOT) 20 U/L (5-34); Albumin 3.6 g/dL (3.4-4.8); Alkaline Phosphatase 88 U/L (40-150); Anion Gap 13 mmol/L (10-20); BUN (Urea Nitrogen) 34 mg/dL (9.8-20.1); Bilirubin, Total 0.9 mg/dL (0.2-1.2); Calc. Creatinine Clearance 0 mL/min (70-130); Calcium 8.5 mg/dL (7.8-10.44); Carbon Dioxide 20 mmol/L (23-31); Chloride 106 mmol/L (98-107); Estimated GFR-MDRD 39; Glucose 95 mg/dL (83-110); Potassium 4.1 mmol/L (3.5-5.1); Protein, Total 6.6 g/dL (6.0-8.3); Sodium 135 mmol/L (136-145)
[2018-12-12] MEDS ORDERED: Ondansetron ODT 4 MG TAB SL PRN (16:11)
[2018-12-12] MEDS ORDERED: Sodium Chloride 0.9% 1,000 ML IV SCH (16:11)
[2018-12-12] MEDS ORDERED: Ondansetron PF 4 MG/2 ML Vial IVP PRN (16:11)
[2018-12-12] MEDS ORDERED: Furosemide 40 MG TAB PO PRN (18:04)
[2018-12-12 18:17] VITALS: BMI 25.7
[2018-12-12] MEDS: Vancomycin HCl 1.25 GM in Sodium Chloride 0.9% 250 ML 250 ML IVPB SCH (19:23)
[2018-12-12] MEDS: Piperacillin/Tazobactam 4.5 GM in Sodium Chloride 0.9% 100 ML IVPB SCH (23:07)
[2018-12-13] MEDS ORDERED: Vancomycin HCl 1 GM in Premix Bag 1 BAG IVPB SCH (01:00)
--- NOTE | 2018-12-13 02:29 | HP ---
PRIMARY CARE PHYSICIAN: Dr. Suleman Cabral. CHIEF COMPLAINT: Right leg swelling, redness and pain. HISTORY OF PRESENT ILLNESS: This is an 83-year-old female patient of Dr. Suleman Cabral's with a history of atrial fibrillation, congestive heart failure, hypothyroidism, history of cirrhosis of the liver, who presented to the emergency department with worsening pain, redness and swelling of her right leg. Patient states that she has been in her usual state of health when about 10 days ago, she started not feeling well with on and off fever, some nausea, some vomiting. She notes that her symptoms started after she went to the grocery store and had an episode where she was either hit by an object or stung by an insect on the top of her right foot. She developed a small wound, which was draining some pus at the onset with some swelling of her right anterior foot. She later developed increased redness and swelling and pain of her right leg, which has been ascending up from her foot now just below her knee. She states that she has had some fevers between 99 and 100, one day of nausea, one day of diarrhea. As she presented to the emergency department today, had normal tib-fib x-ray as well as normal vascular ultrasound. She was started on antibiotics in the emergency department now being admitted for further evaluation and treatment of a right leg cellulitis as well as rule out bacteremia. PAST MEDICAL HISTORY: Chronic atrial fibrillation, on anticoagulation therapy, history of coronary artery disease, history of congestive heart failure, hyperlipidemia, remote history of type 2 diabetes, history of cirrhosis of her liver with ascites, anxiety disorder. MEDICATIONS: Include: 1. Zoloft 200 mg daily. 2. Levothyroxine 112 mcg daily. 3. Coumadin 5 mg on Saturday, , Saturday, Saturday and 7.5 mg on Saturday, Saturday, Saturday. 4. Coreg 3.125 mg b.i.d. 5. Losartan 25 mg daily. 6. Isosorbide 30 mg once daily. 7. Spironolactone 100 mg half a tab daily. 8. Lasix 40 mg p.r.n. 9. Pravastatin 40 mg daily. 10. Aspirin 81 mg daily. PAST SURGICAL HISTORY: Gallbladder removal, partial hysterectomy 1974, bypass surgery in 1998, bilateral knee replacement in 2007, cardiac cath with stent placement in [address] Ward. SOCIAL HISTORY: She is . Quit smoking in 1969. Has kids and grandkids. FAMILY HISTORY: Siblings with coronary disease. Sister with esophageal cancer. Mother and father . REVIEW OF SYSTEMS: As per the history of present illness, she denies any recent fevers, chills, or recent illness. HEENT: No headache, visual or hearing changes. CARDIAC: No chest pain, shortness of breath, palpitations. PULMONARY: Denies cough, hemoptysis. GI: Some nausea, one episode of diarrhea. Appetite is good. : Denies dysuria or hematuria. She does admit to some incontinence. NEUROLOGIC: No weakness, seizure, syncope. MUSCULOSKELETAL: Chronic knee pain. PHYSICAL EXAMINATION: VITAL SIGNS: In the emergency room, temperature was 98.8, pulse is 61, respirations 18, blood pressure 105/69. GENERAL: She is awake and alert. No acute distress. She is resting comfortably in her bed. Mucosa is moist. NECK: Supple. No bruits. HEART: Irregularly irregular. LUNGS: Clear bilaterally. ABDOMEN: Soft. No masses. No hepatosplenomegaly. EXTREMITIES: Right lower extremity with minimal edema, redness from the top of her foot to below her knee with tenderness throughout. Top of right foot with a small eschar. No discharge. No drainage. 2+ peripheral pulses bilaterally. LABORATORY DATA: White blood cell count 69746, hemoglobin and hematocrit 12.6 and 37.5 with microcytic indices, platelets of a 130. INR of 2.6. Sodium 135, potassium 4.1, chloride 106, CO2 of 20, BUN and creatinine 34 and 1.30, serum GFR of 39, glucose of 95, lactic acid of 0.9. Urinalysis with large blood, large squamous epithelial cells. IMAGING: Tib-fib x-ray was normal. Vascular ultrasound of the right leg showed no DVT. ASSESSMENT/PLAN: This is an 83-year-old female with medical problems including chronic atrial fibrillation, liver cirrhosis, coronary artery disease, now with right lower extremity cellulitis. Agree with admission. We will continue IV antibiotics until cultures return. If blood cultures are negative, we will discharge home on oral therapy. 1. Hypertension. We will continue her medications. 2. Chronic atrial fibrillation. We will continue anticoagulation. We will monitor INR while she has started on antibiotics. 3. Coronary artery disease is stable. We will continue her home medications. 4. Code status. She desires a full code. Job ID: [id number]
[2018-12-13 05:36] LABS: INR-International Normal Ratio 3.1; Prothrombin Time 31.8 SEC (12.0-14.7)
[2018-12-13] MEDS: Levothyroxine Sodium 112 MCG TAB PO SCH (05:44)
[2018-12-13 05:51] LABS: #Eosinphils 0.1 thou/uL (0.0-0.7); #Lymphocytes 0.6 thou/uL (1.20-3.40); #Monocytes 0.8 thou/uL (0.11-0.59); #Neutrophils 4.8 thou/uL (1.40-6.50); %Basophils 0.1 % (0.0-1.0); %Eosinophils 1.7 % (0.0-10.0); %Lymphocytes 9.4 % (21.0-51.0); %Monocytes 12.6 % (0.0-10.0); %Neutrophils 76.2 % (42.0-75.0); Elliptocytes SLIGHT = 2-5 cells (100X) (0-1/hpf); Hemoglobin 11.3 g/dL (12.0-16.0); MDiff Complete? YES; Mean Corpuscular HGB CONC 33.5 g/dL (32.0-36.0); Mean Corpuscular Hemoglobin 33.9 pg (27.0-31.0); Mean Platelet Volume 8.4 fL (7.4-10.4); Platelet Count 107 thou/uL (130-400); Platelet Morphology Comment Appears Decreased; RBC Distribution Width 11.9 % (11.5-14.5); Red Blood Cell (RBC) Count 3.32 mill/uL (4.20-5.40); White Blood Cell (WBC) Count 6.3 thou/uL (4.8-10.8)
[2018-12-13] MEDS: Piperacillin/Tazobactam 4.5 GM in Sodium Chloride 0.9% 100 ML IVPB SCH ×3 (06:06→17:21)
[2018-12-13] MEDS ORDERED: Carvedilol 3.125 MG TAB PO SCH (08:00)
[2018-12-13] MEDS ORDERED: Losartan 25 MG TAB PO SCH (09:00)
[2018-12-13] MEDS: Isosorbide Mononitrate (ER) 30 MG TAB PO SCH (10:17)
[2018-12-13] MEDS: Spironolactone 100 MG TAB PO SCH (10:17)
--- NOTE | 2018-12-13 10:17 | PRG ---
DATE OF SERVICE: 12/13/2018 SUBJECTIVE: The patient is feeling some better. No fevers or chills. No nausea or vomiting. Tolerating diet. Pain is improved in her right leg. OBJECTIVE: VITAL SIGNS: Temperature 97.5, pulse is 65, respirations 20, blood pressure 119/80, pulse ox is 95% on room air. GENERAL: She is awake and alert. No acute distress. Speech is clear. HEART: Regular rate and rhythm. LUNGS: Clear. ABDOMEN: Soft. EXTREMITIES: Decreased redness in the right lower extremity. She continues to have areas of redness and tenderness. Open wound is healing well. Continues to have eschar, but no drainage. LABORATORY DATA: White blood cell count 6300, hemoglobin and hematocrit are 11.3 and 33.6, and platelets of 107. INR is 3.1. Blood cultures, preliminary report is negative. Urine culture, preliminary growing gram-negative rods, less than 5000 colonies. ASSESSMENT AND PLAN: This is an 83-year-old female patient, admitted with right lower extremity cellulitis. 1. Cellulitis has improved. We will continue IV antibiotics until blood cultures are negative, then discharge home on oral therapy. 2. Chronic atrial fibrillation. Continue to monitor INR daily while she is on antibiotics. May need to adjust dosage of her Coumadin. 3. Coronary artery disease, stable. Job ID: [id number]
[2018-12-13] MEDS ORDERED: Warfarin Sodium 5 MG TAB PO SCH (17:00)
[2018-12-13] MEDS: Carvedilol 3.125 MG TAB PO SCH (17:20)
[2018-12-13] MEDS: Vancomycin HCl 1.25 GM in Sodium Chloride 0.9% 250 ML 250 ML IVPB SCH (18:10)
[2018-12-13] MEDS ORDERED: Melatonin 3 MG TAB PO SCH (20:30)
[2018-12-14] MEDS: Piperacillin/Tazobactam 4.5 GM in Sodium Chloride 0.9% 100 ML IVPB SCH ×3 (02:20→17:29)
[2018-12-14 05:26] LABS: INR-International Normal Ratio 2.9; Prothrombin Time 30.4 SEC (12.0-14.7)
[2018-12-14] MEDS: Levothyroxine Sodium 112 MCG TAB PO SCH (06:19)
[2018-12-14] MEDS: Isosorbide Mononitrate (ER) 30 MG TAB PO SCH (09:30)
[2018-12-14] MEDS: Spironolactone 100 MG TAB PO SCH (09:30)
[2018-12-14] MEDS: Carvedilol 3.125 MG TAB PO SCH ×2 (09:30→17:26)
--- NOTE | 2018-12-14 09:57 | RAD ---
Exam: Chest one view HISTORY:Cough Comparison: 06/20/2017 FINDINGS: Cardiac silhouette:Cardiomegaly. Stable sternotomy wires Aorta: Unremarkable Pulmonary vessels: Normal Costophrenic angles: Persistent blunting of the right costophrenic angle. LUNGS: Hyperinflated. No masses or consolidation. Pneumothorax: None Osseous abnormalities: None IMPRESSION: Cardiomegaly. No evidence of congestive heart failure.
--- NOTE | 2018-12-14 10:34 | PRG ---
DATE OF SERVICE: 12/14/2018 PRIMARY CARE PHYSICIAN: Suleman Cabral MD SUBJECTIVE: The patient continues to have pain in her right leg. She has some cough and some shortness of breath with getting out of bed, decreased redness. She denies fevers or chills. Her appetite is good. Denies nausea and vomiting. OBJECTIVE: VITAL SIGNS: Temperature is 98.6, pulse is 63, respirations 20, blood pressure 109/73, and pulse ox is 93% on room air. GENERAL: She is awake and alert, in no acute distress. She does have some cough and some dyspnea on exertion. HEART: Regular rate and rhythm. LUNGS: With rales bilaterally at her bases. ABDOMEN: Soft. EXTREMITIES: Decreased redness in the right lower extremity. Continues to have tenderness worse posteriorly. Wound continues with the eschar. No discharge. Minimal tenderness. ASSESSMENT AND PLAN: This is an 83-year-old female patient status post puncture wound to right leg with resultant right lower extremity cellulitis. 1. Cellulitis is improved. We will continue antibiotics. May switch to oral antibiotics when she is being discharged home. 2. Coronary artery disease with shortness of breath. Possible mild congestive heart failure exacerbation. We will get a chest x-ray and give a dose of Lasix today. If she is not improved today, we will hold on discharge till this week. 3. Chronic atrial fibrillation. INR remains stable on the antibiotics. We will continue her Coumadin dosage. 4. Disposition, hopefully home later today if her breathing improves and will switch to oral antibiotics at that time. Job ID: [id number]
[2018-12-14] MEDS: Vancomycin HCl 1.25 GM in Sodium Chloride 0.9% 250 ML 250 ML IVPB SCH (19:24)
[2018-12-15] MEDS: Piperacillin/Tazobactam 4.5 GM in Sodium Chloride 0.9% 100 ML IVPB SCH (02:06)
[2018-12-15] MEDS: Levothyroxine Sodium 112 MCG TAB PO SCH (06:12)
[2018-12-15 06:34] LABS: INR-International Normal Ratio 2.7; Prothrombin Time 28.4 SEC (12.0-14.7)
[2018-12-15 08:13] VITALS: BP 118/58; TEMP 98.1
[2018-12-15] MEDS: Spironolactone 100 MG TAB PO SCH (08:13)
[2018-12-15] MEDS: Isosorbide Mononitrate (ER) 30 MG TAB PO SCH (08:13)
[2018-12-15] MEDS: Carvedilol 3.125 MG TAB PO SCH (08:13)
--- NOTE | 2018-12-15 13:02 | DIS ---
DATE OF ADMISSION: 12/12/2018 DATE OF DISCHARGE: 12/15/2018 DISCHARGE DIAGNOSES: 1. Right foot cellulitis. 2. Coronary artery disease. 3. Chronic atrial fibrillation. 4. Anticoagulation therapy. 5. Coronary artery disease. 6. Hypertension. 7. Hyperlipidemia. 8. Diabetes, diet controlled. 9. History of cirrhosis with ascites. 10. Anxiety disorder. DISCHARGE MEDICATIONS: 1. Zoloft 200 daily. 2. Levothyroxine 112 daily. 3. Coumadin 5 mg on , Saturday, and Saturday and 7.5 on Saturday, Saturday, and Saturday. 4. Coreg 3.25 b.i.d. 5. Losartan 25 daily. 6. Isosorbide 30 daily. 7. Spironolactone 100 half tab daily. 8. Lasix 40 p.r.n. 9. Pravastatin 40 daily. 10. Aspirin 81 daily. BRIEF HISTORY: An 83-year-old female with the above medical problems, presented with 1-week history of right foot swelling and redness. It may have started with a bee sting on her right foot. Over the week, her symptoms became progressively worse with increasing swelling and pain and redness. HOSPITAL COURSE: The patient was started on vancomycin and Zosyn. Over several days, the patient's swelling and redness decreased significantly. She does still has bruising, discoloration of her right foot. However, she is doing much better. She is desiring to go home at this time. She has been instructed to elevate as much as possible and to follow up in the office in the next 2 to 3 days. She will be given clindamycin 300 t.i.d. for 10 days. Job ID: [id number]
[2018-12-15] MEDS ORDERED: Warfarin Sodium 7.5 MG TAB PO SCH (17:00)
--- NOTE | 2018-12-18 09:15 | PQF ---
[employer] Crystal Reports Winform ViewerTAYO ESPINO BRENTON CERON JR, MD [id number] CLINICAL DOCUMENTATION CLARIFICATION FORM: POST DISCHARGE Addendum to original discharge summary date: ____ Late entry note date: __ DATE: 12/18/2018 ATTN:BRENTON ROSEN JR, MD Please exercise your independent, professional judgment in responding to the clarification form. Clinical indicators are provided on the bottom of this form for your review Please check appropriate box(s): HEART FAILURE: A. TYPE: [ x] Systolic / HFrEF [ ] Diastolic / HFpEF [ ] Combined Systolic / Diastolic B. ACUITY [ ] Acute [ ] Acute on Chronic [ x] Chronic [ ] Other diagnosis [ ] Unable to determine For continuity of documentation, please document condition throughout progress notes and discharge summary. Thank You. CLINICAL INDICATORS - SIGNS / SYMPTOMS / LABS -possible mild congestive heart failure exacerbation-Progress note, 12/14, Zuhair Mullins DO -CAD with SOB-Progress note, 12/14, Zuhair Mullins DO -PMH: CHF-ED record, 12/12, Madisen. Mendoza RN -Cardiomegaly, no evidence of congestive heart failure-Chest X ray, 12/14 -Right lower extremity with minimal edema-H&P, 12/13, Zuhair Mullins DO -EF if visually estimated at 50-55%-Previeous Echo on 06/21 -Diastolic function could not be assessed to afib-Previeous Echo on 06/21 RISKS: -Hypertension- DS, 12/15, BRENTON ROSEN JR, MD -Bypass surgery in 1998, cardiac cath with stent in 2016-H&P, 12/13, Zuhair Mullins DO TREATMENTS: -give a dose of lasix today-Progress note, 12/14, Zuhair Mullins DO (This form is maintained as a part of the permanent medical record) 2015 [employer], [employer]. All Rights Reserved [employer] Crystal Reports Winform ViewerRarené Mack [ not provided] [not provided] MTDD
== END 2018-12-15 10:53 | disposition home or self-care (01) | DRG 603 ==
LOC: ERS 10:51 → ERHOLD 12:41 → T4-A 16:09
PROVIDERS: ADMIT Family Medicine; ATTEND Family Medicine
DX: L03.115 Cellulitis of right lower limb (principal); I50.22 Chronic systolic (congestive) heart failure; I25.10 Atherosclerotic heart disease of native coronary artery without angina pectoris; E78.5 Hyperlipidemia, unspecified; E11.9 Type 2 diabetes mellitus without complications; K74.60 Unspecified cirrhosis of liver; I11.0 Hypertensive heart disease with heart failure; E03.9 Hypothyroidism, unspecified; Z96.653 Presence of artificial knee joint, bilateral; F41.9 Anxiety disorder, unspecified; I48.2 Chronic atrial fibrillation; Z79.01 Long term (current) use of anticoagulants; I25.2 Old myocardial infarction; Z87.442 Personal history of urinary calculi; Z90.49 Acquired absence of other specified parts of digestive tract; Z95.5 Presence of coronary angioplasty implant and graft; Z95.1 Presence of aortocoronary bypass graft; Z90.710 Acquired absence of both cervix and uterus; Z88.2 Allergy status to sulfonamides; Z88.8 Allergy status to other drugs, medicaments and biological substances; Z91.041 Radiographic dye allergy status; Z91.013 Allergy to seafood
CPT/HCPCS: 36415; 71045; 80053; 80202; 81003; 81015; 83605; 85025; 85610; 85730; 87040; 87086; 96365; 96367; J2543; J3370; J3490; J7050

== ENCOUNTER 2020-04-18 12:36 | Inpatient (IN) | payer MEDICARE ==
[~2020-04-18 12:36] MED LIST changes: -ISOVUE-370 76%-LOCM 1 ML ONE; +Iopamidol-370 76% 500 ML 1 ML ONE
[2020-04-18 13:17] LABS: #Eosinphils 0.1 thou/uL (0.0-0.7); #Lymphocytes 0.5 thou/uL (1.20-3.40); #Monocytes 0.6 thou/uL (0.11-0.59); #Neutrophils 3.6 thou/uL (1.40-6.50); %Basophils 0.9 % (0.0-1.0); %Eosinophils 1.1 % (0.0-10.0); %Lymphocytes 11.2 % (21.0-51.0); %Monocytes 12.4 % (0.0-10.0); %Neutrophils 74.5 % (42.0-75.0); Hemoglobin 11.4 g/dL (12.0-16.0); Mean Corpuscular HGB CONC 33.1 g/dL (32.0-36.0); Mean Platelet Volume 8.4 fL (7.4-10.4); Platelet Count 99 thou/uL (130-400); RBC Distribution Width 13.3 % (11.5-14.5); Red Blood Cell (RBC) Count 3.26 mill/uL (4.20-5.40); White Blood Cell (WBC) Count 4.8 thou/uL (4.8-10.8)
--- NOTE | 2020-04-18 13:24 | RAD ---
XR Chest 1 View Portable HISTORY: Dyspnea COMPARISON: 12/14/2018 FINDINGS: Changes of median sternotomy are again seen. The heart is enlarged but stable. There is con tinued blunting of the right costophrenic angle. No lobar consolidation, pneumothoraces, shania pulmonary edema or left pleural effusion are seen. IMPRESSION: Stable exam.
[2020-04-18 13:38] LABS: MDiff Complete? YES; Macrocytosis SLIGHT = 6-15 cells (100X) (0-5/hpf); Platelet Morphology Comment Appears Decreased
[2020-04-18 13:47] LABS: ALT (SGPT) 11 U/L (8-55); AST (SGOT) 24 U/L (5-34); Albumin 3.9 g/dL (3.4-4.8); Alkaline Phosphatase 109 U/L (40-110); BUN (Urea Nitrogen) 24 mg/dL (9.8-20.1); Bilirubin, Total 1.2 mg/dL (0.2-1.2); Calc. Creatinine Clearance 0 mL/min (70-130); Calcium 8.9 mg/dL (7.8-10.44); Carbon Dioxide 23 mmol/L (23-31); Chloride 105 mmol/L (98-107); Globulin 3.6 g/dL (2.4-3.5); Glucose 109 mg/dL (83-110); Potassium 4.4 mmol/L (3.5-5.1); Protein, Total 7.5 g/dL (6.0-8.3); Sodium 138 mmol/L (136-145)
[2020-04-18 14:36] LABS: Anion Gap 14 mmol/L (10-20)
[2020-04-18 16:25] LABS: PTT 47.8 sec (22.9-36.1)
[2020-04-18 16:26] LABS: D-Dimer Test 1.48 *mcg/mL (0.27-0.43); INR-International Normal Ratio 2.9; Prothrombin Time 31.3 sec (12.0-14.7)
[2020-04-18 16:30] LABS: Bilirubin Negative (Negative); Blood, Urine Negative (Negative); Clarity Clear (Clear); Glucose, Urine (Dipstick) Normal (Negative); Ketone, Urine Negative (Negative); Leukocyte 75 Leu/uL (Negative); Nitrite Negative (Negative); Protein, Urine (Dipstick) 10 mg/dL (Neg-Trace); RBC/HPF None Seen HPF (0-3); Specific Gravity, Urine 1.015 (1.002-1.036); Squamous Epithelial 0-3 HPF (0-3); Urobilinogen Normal mg/dL (Less than 2)
[2020-04-18 16:32] LABS: Bacteria/HPF 1+ HPF (None Seen)
--- NOTE | 2020-04-18 16:42 | ULT ---
US Venous Doppler Lt Unilat History: Lower extremity swelling Comparison: None. Findings: Real-time grayscale, color, and spectral analysis of the left lower extremity venous system was performed. The common femoral, femoral, proximal portions greater saphenous and deep femoral veins as well as the popliteal and posterior tibial veins were interrogated. Incomplete compression of the deep femoral vein. Remainder of the veins have normal flow, augmentatio n and compression. Impression: Deep femoral venous thrombosis. Dr. Doll notified of findings via telephone.
[2020-04-18] MEDS ORDERED: Famotidine/PF 20 mg/2ml Vial ONE (16:56)
[2020-04-18] MEDS ORDERED: methylPREDNISolone Sod Succ/PF 125 MG/2 ML VIAL ONE (16:56)
[2020-04-18] MEDS ORDERED: Heparin 25,000 units/D5W 500 ML ONE (16:56)
[2020-04-18] MEDS ORDERED: diphenhydrAMINE 50 MG/ML VIAL ONE (16:56)
--- NOTE | 2020-04-18 18:38 | CT ---
CT PULMONARY ANGIOGRAM WITH IV CONTAST AND 3D MIP RECONSTRUCTIONS: Date: 04-18-2020 PROVIDED CLINICAL HISTORY: Shortness of breath FINDINGS: There is no evidence for central or segmental pulmonary embolus. The heart is prominently enlarged, p rimarily on the basis of marked dilatation of the right atrium. There is reflux of contrast material into the hepatic veins compatible with right heart dysfunction. Vascular calcification including belkis nary calcium is seen. There is small right pleural fluid. There are several clustered small nodules present at the lateral aspect of the left lower lobe. The l ungs appear otherwise free of significant opacity. There is no evidence for thoracic lymph node enlargement. The visualized portions of the upper abdomen appear grossly unremarkable. The osseous structures demonstrate no concerning lytic or blastic lesions. IMPRESSION: 1. No evidence for central or segmental pulmonary embolus. 2. Cardiomegaly predominately on the basis of marked right atrial enlargement. 3. Small right pleural fluid. 4. A few clustered nodules in the left lower lobe may reflect infectious pneumonitis. POS: [facility]
[2020-04-18] MEDS ORDERED: Acetaminophen 325 MG TAB PO PRN (19:29)
[2020-04-18] MEDS ORDERED: Ondansetron ODT 4 MG TAB PO PRN (19:29)
[2020-04-18] MEDS ORDERED: Ondansetron PF 4 MG/2 ML Vial IVP PRN (19:29)
[2020-04-18] MEDS ORDERED: Acetaminophen 650 MG Suppository PR PRN (19:29)
[2020-04-18] MEDS ORDERED: Heparin 10,000 UNITS/ 10 ML VIAL SLOW IVP SCH (19:30)
[2020-04-18] MEDS ORDERED: Heparin 25,000 units/D5W 500 ML IVPB SCH (19:30)
--- NOTE | 2020-04-18 19:36 | PDOC.HHP ---
Hospitalist HPI - History of Present Illness dyspnea History of Present Illness: Case of an 84y/o female with a pmhx of atrial fibrillation on Coumadin, CAD, CHF and htn who comes to hospital due to dyspnea. patient refers her she was on her usual state of health until 3 weeks ago when she started with progressive dyspnea. she states is worse on exertion, and has been accompanied by cough which initially was non productive or clear but has recently started to produce some brownish sputum. patient denies any chest pain palpitations diaphoresis, fever chills malaise nausea or vomiting. At the ED patient was evaluated and found with a dvt, concern for possible PE for which CTA was sent and came back negative. of note patient is on coumadin for afib and her inr was 2.9, for which she was started on a heparin drip Hospitalist ROS - Review of Systems All other systems reviewed; all pertinent +/- noted in HPI/Subj Hospitalist History - Past Surgical History Past Surgical History: reports: Appendectomy, Cholecystectomy, CABG, Hysterectomy Other Surgical History: oophorectomy - Family History Family History: reports: no pertinent history - Social History Smoking Status: Never smoker Alcohol: reports: None Drugs: reports: none - Exam General Appearance: NAD, awake alert Eye: PERRL, anicteric sclera ENT: normocephalic atraumatic, no oropharyngeal lesions Neck: supple, symmetric, no JVD Heart: RRR, no murmur, no gallops Respiratory: tachypneic Gastrointestinal: soft, non-tender, non-distended Extremities: no cyanosis, no clubbing, no edema Skin: normal turgor, no lesions, no rashes Neurological: cranial nerve grossly intact, normal sensation to touch Musculoskeletal: normal tone, normal strength, no muscle wasting Psychiatric: normal affect, normal behavior, A&O x 3, oriented to person Hospitalist Results - Labs Result Diagrams: 04/18/20 19:49 04/18/20 13:05 Lab results: WBC 4.8 thou/uL (4.8-10.8) 04/18/20 13:05 Hgb 11.4 g/dL (12.0-16.0) L 04/18/20 13:05 Hct 34.5 % (36.0-47.0) L 04/18/20 13:05 MCV 106.0 fL (78.0-98.0) H 04/18/20 13:05 Plt Count 99 thou/uL (130-400) L 04/18/20 13:05 Neutrophils % 74.5 % (42.0-75.0) 04/18/20 13:05 Sodium 138 mmol/L (136-145) 04/18/20 13:05 Potassium 4.4 mmol/L (3.5-5.1) 04/18/20 13:05 Chloride 105 mmol/L (98-107) 04/18/20 13:05 Carbon Dioxide 23 mmol/L (23-31) 04/18/20 13:05 BUN 24 mg/dL (9.8-20.1) H 04/18/20 13:05 Creatinine 1.35 mg/dL (0.6-1.1) H 04/18/20 13:05 Glucose 109 mg/dL (83-110) 04/18/20 13:05 Calcium 8.9 mg/dL (7.8-10.44) 04/18/20 13:05 Total Bilirubin 1.2 mg/dL (0.2-1.2) 04/18/20 13:05 AST 24 U/L (5-34) 04/18/20 13:05 ALT 11 U/L (8-55) 04/18/20 13:05 Alkaline Phosphatase 109 U/L (40-110) 04/18/20 13:05 Troponin I 0.018 ng/mL (< 0.028) 04/18/20 16:00 Serum Total Protein 7.5 g/dL (6.0-8.3) 04/18/20 13:05 Albumin 3.9 g/dL (3.4-4.8) 04/18/20 13:05 Urine Ketones Negative mg/dL (Negative) 04/18/20 15:55 Urine Blood Negative (Negative) 04/18/20 15:55 Urine Nitrite Negative (Negative) 04/18/20 15:55 Ur Leukocyte Esterase 75 Dio/uL (Negative) A 04/18/20 15:55 Urine RBC None Seen HPF (0-3) 04/18/20 15:55 Urine WBC 4-6 HPF (0-3) A 04/18/20 15:55 Ur Squamous Epith Cells 0-3 HPF (0-3) 04/18/20 15:55 Urine Bacteria 1+ HPF (None Seen) A 04/18/20 15:55 Hospitalist H&P A/P - Problem (1) DVT (deep venous thrombosis) Code(s): I82.409 - ACUTE EMBOLISM AND THOMBOS UNSP DEEP VN UNSP LOWER EXTREMITY Status: Acute (2) Atrial fibrillation Code(s): I48.91 - UNSPECIFIED ATRIAL FIBRILLATION Status: Acute (3) CAD (coronary artery disease) Code(s): I25.10 - ATHSCL HEART DISEASE OF [place] CORONARY ARTERY W/O ANG PCTRS Status: Acute (4) Hypothyroidism Code(s): E03.9 - HYPOTHYROIDISM, UNSPECIFIED Status: Acute (5) CHF (congestive heart failure) Code(s): I50.9 - HEART FAILURE, UNSPECIFIED Status: Acute (6) Dyspnea Code(s): R06.00 - DYSPNEA, UNSPECIFIED Status: Acute - Plan Plan: case of an 84y/o female with the stated pmhx who present with dyspnea and an acute dvt DVT - us consistent with L leg DVT - patient on therapeutic dose of warfarin, inr 2.9 - will start heparin drip - will d/c warfarin, will follow inrs - CTA showed no PE atrial fibrillation - continue beta francois for rate control - will start hep drip - cardiac monitoring chf - not in acute decompensation - chronic - continue beta francois - due to episode of hypotension will hold diuretics until pt is more stable - f/u bnp - last echo 2017 ef 50-55%, mild to mod MR, severe TR cad - continue cad protective med with statin, asa and beta francois hypothyroidism - continue levothyroxine dyspnea - unclear etiology - small pe not seen on cta? - cta showed possible infectious pneumonitis, will cover with rocephin + azithromycin, will also send procalcitonin and covid test - 02 supplementation - will send 2d echo - consider pulmonology evaluation - will start duo nebs prn
[2020-04-18 19:49] LABS: Troponin I 0.012 ng/mL (< 0.028)
[2020-04-18 20:06] LABS: Hemoglobin 11.2 g/dL (12.0-16.0); Platelet Count 97 thou/uL (130-400)
[2020-04-18 20:24] LABS: PTT Greater than 250.0 sec (22.9-36.1)
[2020-04-18] MEDS ORDERED: Azithromycin 500 MG VIAL ONE (21:44)
[2020-04-18] MEDS: Azithromycin 500 MG in Sodium Chloride 0.9% 250 ML 250 ML IVPB SCH (21:53)
[2020-04-18 22:26] LABS: Troponin I 0.028 ng/mL (< 0.028)
[2020-04-18] MEDS ORDERED: cefTRIAXone\\ROCEPHIN 1 GM VIAL ONE (22:56)
[2020-04-18] MEDS: cefTRIAXone\\ROCEPHIN 1 GM in Sodium Chloride 0.9% 100 ML IVPB SCH (23:02)
[2020-04-19 02:10] LABS: SARS-CoV-2 MS2 Positive; SARS-CoV-2 N Gene Negative; SARS-CoV-2 S Gene Negative; SARS-CoV-2 by NAA Not Detected (NotDetected); SARS-CoV-2 orf1ab Negative
[2020-04-19 02:29] LABS: PTT 125.5 sec (22.9-36.1)
[2020-04-19 05:13] LABS: INR-International Normal Ratio 3.4; Prothrombin Time 35.1 sec (12.0-14.7)
[2020-04-19 05:22] LABS: Band 2 % (5-11); Hemoglobin 11.5 g/dL (12.0-16.0); Hypochromia SLIGHT = 6-15 cells (100X) (0-5/hpf); Lymphocytes 16 % (21-51); MDiff Complete? YES; Macrocytosis SLIGHT = 6-15 cells (100X) (0-5/hpf); Mean Corpuscular Hemoglobin 33.8 pg (27.0-31.0); Mean Platelet Volume 8.8 fL (7.4-10.4); Monocytes 8 % (0-10); Neutrophil 74 % (42-75); Platelet Count 93 thou/uL (130-400); Platelet Morphology Comment Appears Adequate; RBC Distribution Width 13.5 % (11.5-14.5); White Blood Cell (WBC) Count 3.3 thou/uL (4.8-10.8)
[2020-04-19 05:35] LABS: ALT (SGPT) 12 U/L (8-55); AST (SGOT) 26 U/L (5-34); Albumin 3.8 g/dL (3.4-4.8); Alkaline Phosphatase 108 U/L (40-110); Anion Gap 15 mmol/L (10-20); BUN (Urea Nitrogen) 25 mg/dL (9.8-20.1); Bilirubin, Total 0.8 mg/dL (0.2-1.2); Calc. Creatinine Clearance 0 mL/min (70-130); Calcium 8.6 mg/dL (7.8-10.44); Carbon Dioxide 20 mmol/L (23-31); Chloride 108 mmol/L (98-107); Globulin 3.5 g/dL (2.4-3.5); Glucose 173 mg/dL (83-110); Protein, Total 7.3 g/dL (6.0-8.3); Sodium 138 mmol/L (136-145)
[2020-04-19] MEDS ORDERED: Furosemide 20 MG/2 ML VIAL SLOW IVP SCH (11:15)
[2020-04-19] MEDS ORDERED: Furosemide 20 MG/2 ML VIAL ONE (11:25)
[2020-04-19] MEDS ORDERED: Torsemide 20 MG TAB PO SCH (11:45)
[2020-04-19] MEDS ORDERED: Losartan 25 MG TAB PO SCH (11:45)
[2020-04-19] MEDS ORDERED: Carvedilol 3.125 MG TAB PO SCH (11:45)
[2020-04-19] MEDS ORDERED: Levothyroxine Sodium 112 MCG TAB PO SCH (11:45)
[2020-04-19] MEDS ORDERED: Aspirin 81 mg Enteric Coated Tablet PO SCH (11:45)
[2020-04-19] MEDS: Carvedilol 3.125 MG TAB PO SCH ×2 (12:23→18:25)
[2020-04-19] MEDS: Losartan 25 MG TAB PO SCH (12:24)
[2020-04-19] MEDS: Levothyroxine Sodium 112 MCG TAB PO SCH (12:24)
[2020-04-19] MEDS: Torsemide 20 MG TAB PO SCH (12:25)
[2020-04-19] MEDS: Aspirin 81 mg Enteric Coated Tablet PO SCH (12:25)
--- NOTE | 2020-04-19 12:47 | PDOC.HOSPP ---
- Subjective Encounter Date: 04/19/20 Encounter Time: 14:00 Subjective: Patient feeling a little less short of breath on the oxygen. Otherwise unchanged. Patient has no history of blood clots. Patient reports that LLE swells much easier that the RLE for at least 1-2 years. No specific pain there or new symptoms there. Patient has had some WIL abdominal pain on and off for some time, as well as daily blood and mucus coating her stools for the past 2-3 months. - Objective Result Diagrams: 04/19/20 04:54 04/19/20 04:54 Hospitalist ROS - Review of Systems Constitutional: denies: fever, chills Respiratory: reports: shortness of breath. denies: cough Cardiovascular: reports: edema. denies: chest pain, palpitations Gastrointestinal: reports: other (blood and mucus coating stools for past 2-3 months). denies: nausea, vomiting, abdominal pain - Medication Medications: Active Medications Generic Name Dose Route Start Last Admin Trade Name Freq PRN Reason Stop Dose Admin Albuterol/Ipratropium 3 ml 04/18/20 22:30 04/19/20 00:32 Ipratropium/Albuterol Sulfate 3 Ml Neb NEB 3 ml [id number] PRN Administration SOB &/or Wheezing Aspirin 81 mg 04/20/20 09:00 04/19/20 12:25 Aspirin 81 Mg Enteric Coated Tablet PO 81 mg DAILY DANGELO Administration Carvedilol 3.125 mg 04/19/20 17:00 04/19/20 12:23 Carvedilol 3.125 Mg Tab PO 3.125 mg BID-WM DANGELO Administration Furosemide 20 mg 04/19/20 11:15 04/19/20 12:23 Furosemide 20 Mg/2 Ml Vial SLOW IVP 04/19/20 14:00 20 mg NOW DANGELO Administration Ceftriaxone Sodium 1 gm/ 100 mls @ 200 mls/hr 04/18/20 21:00 04/18/20 23:02 Sodium Chloride IVPB 100 mls Q24HR DANGELO Administration Azithromycin 500 mg/ Sodium 250 mls @ 250 mls/hr 04/18/20 20:00 04/18/20 21:53 Chloride IVPB 250 mls Q24HR DANGELO Administration Isosorbide Mononitrate 60 mg 04/20/20 09:00 04/19/20 12:25 Isosorbide Mononitrate Er 30 Mg Tab PO 60 mg QAM DANGELO Administration Levothyroxine Sodium 112 mcg 04/20/20 06:00 04/19/20 12:24 Levothyroxine Sodium 112 Mcg Tab PO 112 mcg 0600 DANGELO Administration Losartan Potassium 25 mg 04/20/20 09:00 04/19/20 12:24 Losartan 25 Mg Tab PO 25 mg DAILY DANGELO Administration Sertraline HCl 100 mg 04/20/20 09:00 04/19/20 12:26 Sertraline Hcl 100 Mg Tab PO 100 mg DAILY DANGELO Administration Torsemide 10 mg 04/20/20 09:00 04/19/20 12:25 Torsemide 20 Mg Tab PO 10 mg DAILY DANGELO Administration - Exam General Appearance: NAD, awake alert ENT: moist mucosa Heart: RRR, no murmur, no gallops, no rubs Respiratory: CTAB, no wheezes, no rales, no ronchi Gastrointestinal: soft, non-tender, non-distended, normal bowel sounds Psychiatric: normal affect, normal behavior, A&O x 3 Hosp A/P - Plan case of an 84y/o female with the stated pmhx who present with dyspnea and an acute dvt on therapeutic coumadin DVT - us consistent with L leg DVT - patient on therapeutic dose of warfarin, inr 2.9 - was put on heparin drip but that was discontinued - CTA showed no PE - I spoke to CT surgery and Dr. 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 - Will ask for Heme/Onc assistance/recommendations. atrial fibrillation - continue beta francois for rate control - cardiac monitoring chf - chronic, BNP is up some from previous, exacerbation may be source of SOB - continue beta francois - BP stable today so restarting Torsemide - last echo 2018 ef 50-55%, mild to mod MR, severe TR, repeat pending cad - continue cad protective med with statin, asa and beta francois hypothyroidism - continue levothyroxine dyspnea - unclear etiology, likely CHF exacerbation, consulting cardiology - cta showed possible infectious pneumonitis, will cover with rocephin + azithromycin, will also send procalcitonin and covid test - 02 supplementation - will start duo nebs prn
--- NOTE | 2020-04-19 18:30 | CON ---
DATE OF CONSULTATION: REASON FOR CONSULTATION: DVT, on Coumadin. HISTORY OF PRESENT ILLNESS: Ms. Mansfield is a pleasant 84-year-old female with a past medical history of atrial fibrillation, congestive heart failure, who presented to the hospital with shortness of breath. She states over the past 3 weeks, she has gotten progressively short of breath with weakness and has become more sedentary. She has been having right lower extremity pain secondary to a spider bite several years ago. An ultrasound was done on the left lower extremity and found an incomplete compression of the deep femoral vein concerning for a thrombus. The remainder of the veins had normal flow, augmentation and compression. The patient takes Coumadin for atrial fibrillation, she has for several years. She is [facility]. She states she is oriental orthodox in taking her medication. The only time she has been off her medication was in December when she had dental work done. She was off for about a week. Her INR on arrival was therapeutic at 2.9. Because of the DVT, she was started on a heparin drip which has been discontinued. She did undergo a CT angio of the chest, which showed no pulmonary emboli. There was cardiomegaly, small right pleural effusion, and some clustered nodules in the left lower lobe concerning for possible infectious pneumonitis. The patient was seen in the ER. She is sitting in a chair. She has no complaints other than her right ankle pain. She has received diuretics and her breathing has improved. PAST MEDICAL HISTORY: 1. Atrial fibrillation. 2. Coronary artery disease. 3. Congestive heart failure. 4. Hyperlipidemia. 5. History of cirrhosis of the liver. 6. Anxiety disorder. 7. Kidney stones. PAST SURGICAL HISTORY: 1. Appendectomy. 2. Cholecystectomy. 3. Coronary artery bypass grafting. 4. Hysterectomy. 5. Oophorectomy. 6. Cystoscopy with right ureteral stent placement. ALLERGIES: TO IODINE CONTRAST AND SHELLFISH. HOME MEDICATIONS: 1. Cozaar. 2. Ecotrin. 3. Imdur. 4. Synthroid. 5. Torsemide. 6. Coumadin. 7. Coreg. 8. Zoloft. FAMILY HISTORY: Noncontributory. SOCIAL HISTORY: , lives with her spouse. No alcohol, tobacco, or illicit drug use. REVIEW OF SYSTEMS: 12-point review of systems is negative except for noted in HPI. PHYSICAL EXAMINATION: VITAL SIGNS: Temperature is 98.6, pulse is 78, respiratory rate 25, BP is 128/84. She is 100% on room air. GENERAL: A well-developed, well-nourished female, in no acute distress. HEENT: Normocephalic, atraumatic. Pupils are equal and reactive to light. NECK: Supple. CARDIOVASCULAR: Irregular rate and rhythm. LUNGS: Crackles in the posterior bases. ABDOMEN: Soft, nontender. Bowel sounds are positive. EXTREMITIES: There is no clubbing or cyanosis. Her left leg is nontender. No erythema or swelling noted. Her right leg is tender to palpation in the ankle area. SKIN: She has chronic discoloration of her right lower extremity. HEMATOLOGICAL: She has scattered bruising on her arms and area on her back. NEUROLOGIC: Nonfocal. PERTINENT LABORATORY DATA AND X-RAYS: WBCs are 3.3, hemoglobin 11.5, hematocrit 35.9, platelet count is 93,000. She has 74% neutrophils, 16% lymphocytes. PT 35.1, INR is 3.4, PTT is 55. Sodium 138, potassium 5.0, chloride 108, CO2 is 20, BUN is 25, creatinine 1.37, glucose 173, calcium 8.6, bilirubin 0.8, AST is 26, ALT is 12, alkaline phosphatase is 108. Serum total protein is 7.3, albumin 3.8, globulin 3.5. BNP is 884. TSH is normal. COVID PCR is not detected. RADIOLOGY DATA: Per HPI. ASSESSMENT: 1. Left lower extremity deep venous thrombosis of the femoral vein. 2. Atrial fibrillation, on therapeutic Coumadin. 3. Congestive heart failure exacerbation. DISCUSSION: The case has been discussed with Dr. Pastor. Patient has unfortunately developed a DVT while on Coumadin. It is unclear if the DVT developed while she was off Coumadin for dental work. She has no symptoms at this time. Recommend transition to Eliquis or increase therapeutic threshold of Coumadin to 3.5. No other workup is needed at this time. Patient has taken Eliquis in the past, but was stopped due to hematuria. At that time, she had kidney stones and ureteral stents placed. Patient also has mild thrombocytopenia from liver disease, however, with a platelet count of 93, she is not at any increased risk of bleeding. Recommend holding anticoagulation if platelets drop below 40K. 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 Thank you for the consult. Job ID: [id number] DUANE
--- NOTE | 2020-04-19 18:43 | CON ---
DATE OF CONSULTATION: HISTORY: Elizabeth Mansfield is an 84-year-old white female, patient of Dr. Ward. She has undergone previous LAD stent placement which restenosed and then LIND to the LAD. In July 2016, she underwent catheterization. She was hydrated the night before due to her renal insufficiency and also was premedicated for iodine allergy. She was found to have patent LIND to the LAD, however, there was a 95% stenosis in the first obtuse marginal. She underwent placement of a bare metal stent - Rebel 2.75 x 12 mm. Her most recent evaluation in the office was in December 2019. Echo revealed ejection fraction of 50% to 55% with moderate right ventricular pressure elevation, severely dilated left atrium, moderately dilated right atrium, [id number] mitral regurgitation, severe tricuspid regurgitation, and moderate elevation of the PA pressure. She also underwent Lexiscan Cardiolite testing, which was normal without evidence of ischemia. She states that one month ago, her furosemide 40 mg daily was discontinued and instead she was placed on torsemide 10 mg daily. Over the last 2 to 3 weeks, she has began to notice increasing dyspnea on exertion as well as abdominal bloating. She denies any significant change in chronic leg edema. PAST MEDICAL HISTORY: Hyperlipidemia, chronic atrial fibrillation, hypertension, coronary artery disease. OPERATIONS: Cholecystectomy, hysterectomy, LIND to the LAD, hysterectomy. MEDICATIONS: At home include; 1. Aspirin 81 daily. 2. Coumadin 5 mg daily. 3. Carvedilol 3.125 b.i.d. 4. Isosorbide mononitrate 60 q.a.m. 5. Levothyroxine 112 mcg daily. 6. Cozaar 25 daily. 7. Zoloft 100 mg daily. ALLERGIES: IODINE. SHE HAS BEEN PREMEDICATED PRIOR TO CATHETERIZATIONS. SOCIAL HISTORY: She has never smoked and does not drink. REVIEW OF SYSTEMS: Otherwise unremarkable. Specifically, she denies any chest discomfort. PHYSICAL EXAMINATION: VITAL SIGNS: Blood pressure 128/84, pulse of 78 and irregularly irregular. HEENT: PERRL. NECK: Supple. CHEST: Reveals decreased breath sounds at the right base, but otherwise clear. CARDIAC: S1 and S2 normal without any S3 or S4. There is a 2/6 holosystolic murmur at the left lower sternal border radiating to the apex. ABDOMEN: Normal bowel sounds without tenderness. EXTREMITIES: Reveal trace pretibial edema. NEUROLOGICAL: Grossly intact. SKIN: Warm and dry. LABORATORY DATA: EKG reveals atrial fibrillation with rate of 66 per minute with poor R-wave progression. Sodium 138, potassium 5.0, chloride 108, carbon dioxide 20, BUN 45, creatinine 1.37, glucose 173. BNP 884.3. Troponin I is normal x3. Hemoglobin 11.5, hematocrit 35.9, white count 3300, platelets 93,000. INR 2.9 yesterday and 3.4 today. COVID negative. Left leg venous ultrasound revealed evidence of deep venous thrombosis of the left femoral vein. Chest x-ray reveals cardiomegaly and right pleural effusion. Chest CTA revealed no evidence of pulmonary embolism. There was cardiomegaly with significant right atrial enlargement, small right pleural effusions. IMPRESSION: 1. Acute on chronic diastolic heart failure. Some of this may have been exacerbated by placing on a less potent dose of torsemide versus the Lasix she was taking. This medicine change occurred approximately 1 week prior to onset of her increased dyspnea. 2. Recent evaluation on December 2019, which revealed no evidence of ischemia and normal ejection fraction of 50% to 55% and [id number] mitral regurgitation. 3. History of coronary artery disease, status post bypass x1 with LIND to the LAD. In July 2016, she had a bare-metal stent placed in the first obtuse marginal. 4. Hypertension. 5. Hyperlipidemia. 6. Chronic atrial fibrillation, on Coumadin therapy. 7. Left femoral vein deep venous thrombosis. This could possibly be due to an old thrombus, it seems somewhat unlikely that she would develop an acute deep venous thrombosis with an INR of 2.9. PLAN: I agree with discontinuation of the intravenous heparin. She will be diuresed. Renal function needs to be watched closely. Fasting lipid profile will be obtained. Job ID: [id number] [facility]
[2020-04-19] MEDS: cefTRIAXone\\ROCEPHIN 1 GM in Sodium Chloride 0.9% 100 ML IVPB SCH (21:15)
[2020-04-19] MEDS: Azithromycin 500 MG in Sodium Chloride 0.9% 250 ML 250 ML IVPB SCH (21:48)
[2020-04-20 05:28] LABS: Anion Gap 15 mmol/L (10-20); BUN (Urea Nitrogen) 32 mg/dL (9.8-20.1); Calc. Creatinine Clearance 34 mL/min (70-130); Calcium 8.4 mg/dL (7.8-10.44); Carbon Dioxide 24 mmol/L (23-31); Cardiac Risk 3.2 (Less than 4.5); Chloride 105 mmol/L (98-107); Cholesterol 155 mg/dl (< 200 Desired); Glucose 107 mg/dL (83-110); HDL Cholesterol 48 mg/dL (>60 Neg Risk); LDL Cholesterol, Calculated 95 mg/dL; Potassium 4.7 mmol/L (3.5-5.1); Sodium 139 mmol/L (136-145); Triglycerides 60 mg/dL (Less than 150)
[2020-04-20] MEDS: Levothyroxine Sodium 112 MCG TAB PO SCH (05:44)
--- NOTE | 2020-04-20 07:33 | PDOC.HOSPP ---
- Subjective Encounter Date: 04/20/20 Encounter Time: 09:30 Subjective: Patient reports SOB a bit better but still needing oxygen which she doesn't usually wear at home. - Objective Vital Signs & Weight: Vital Signs (12 hours) Temp Pulse Resp BP Pulse Ox 04/20/20 03:22 97.5 F L 65 18 111/56 L 98 04/19/20 23:47 20 95 04/19/20 19:45 98.0 F 69 18 95/57 L 97 Weight Weight 175 lb 12.48 oz I&O: 04/19/20 04/20/20 04/21/20 06:59 06:59 06:59 Intake Total 590 Output Total 425 Balance 165 Result Diagrams: 04/19/20 04:54 04/20/20 04:21 Hospitalist ROS - Review of Systems Constitutional: denies: fever, chills Respiratory: reports: SOB with excertion. denies: cough, shortness of breath Cardiovascular: denies: chest pain, palpitations Gastrointestinal: denies: nausea, vomiting, abdominal pain - Medication Medications: Active Medications Generic Name Dose Route Start Last Admin Trade Name Freq PRN Reason Stop Dose Admin Albuterol/Ipratropium 3 ml 04/18/20 22:30 04/19/20 23:47 Ipratropium/Albuterol Sulfate 3 Ml Neb NEB 3 ml [id number] PRN Administration SOB &/or Wheezing Aspirin 81 mg 04/20/20 09:00 04/19/20 12:25 Aspirin 81 Mg Enteric Coated Tablet PO 81 mg DAILY DANGELO Administration Carvedilol 3.125 mg 04/19/20 17:00 04/19/20 18:25 Carvedilol 3.125 Mg Tab PO 3.125 mg BID-WM DANGELO Administration Ceftriaxone Sodium 1 gm/ 100 mls @ 200 mls/hr 04/18/20 21:00 04/19/20 21:15 Sodium Chloride IVPB 100 mls Q24HR DANGELO Administration Azithromycin 500 mg/ Sodium 250 mls @ 250 mls/hr 04/18/20 20:00 04/19/20 21:48 Chloride IVPB 250 mls Q24HR DANGELO Administration Isosorbide Mononitrate 60 mg 04/20/20 09:00 04/19/20 12:25 Isosorbide Mononitrate Er 30 Mg Tab PO 60 mg QAM DANGELO Administration Levothyroxine Sodium 112 mcg 04/20/20 06:00 04/20/20 05:44 Levothyroxine Sodium 112 Mcg Tab PO 112 mcg 0600 DANGELO Administration Losartan Potassium 25 mg 04/20/20 09:00 04/19/20 12:24 Losartan 25 Mg Tab PO 25 mg DAILY DANGELO Administration Sertraline HCl 100 mg 04/20/20 09:00 04/19/20 12:26 Sertraline Hcl 100 Mg Tab PO 100 mg DAILY DANGELO Administration Torsemide 10 mg 04/20/20 09:00 04/19/20 12:25 Torsemide 20 Mg Tab PO 10 mg DAILY DANGELO Administration - Exam General Appearance: NAD, awake alert ENT: moist mucosa Heart: RRR, no murmur, no gallops, no rubs Respiratory: CTAB, no wheezes, no rales, no ronchi Gastrointestinal: soft, non-tender, non-distended, normal bowel sounds Extremities: no edema Psychiatric: normal affect, normal behavior, A&O x 3 Hosp A/P - Plan case of an 84y/o female with the stated pmhx who present with dyspnea and an acute dvt on therapeutic coumadin DVT - us consistent with L leg DVT - patient on therapeutic dose of warfarin, inr 2.9 - was put on heparin drip but that was discontinued - CTA showed no PE - I spoke to CT surgery and Dr. 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 - Heme/Onc consulted, also discussed with cardiology. Dr. Russ suspicious that this is not acute, recommends continuing Coumadin at current target of INR 2-3. atrial fibrillation - continue beta francois for rate control - cardiac monitoring acute on chronic diastolic chf - on Torsemide and IV lasix added - continue beta francois Acute on chronic renal failure - Creatinine bumped a bit with diuresis, will need to watch closely cad - continue cad protective med with statin, asa and beta francois hypothyroidism - continue levothyroxine
[2020-04-20] MEDS: Aspirin 81 mg Enteric Coated Tablet PO SCH (08:06)
[2020-04-20] MEDS: Furosemide 20 MG/2 ML VIAL SLOW IVP SCH (08:06)
[2020-04-20] MEDS: Carvedilol 3.125 MG TAB PO SCH ×2 (08:06→17:58)
[2020-04-20] MEDS: Torsemide 20 MG TAB PO SCH (08:07)
[2020-04-20] MEDS: Losartan 25 MG TAB PO SCH (08:07)
[2020-04-20] MEDS: Azithromycin 500 MG in Sodium Chloride 0.9% 250 ML 250 ML IVPB SCH (19:45)
[2020-04-20 20:07] LABS: Hemoglobin 10.7 g/dL (12.0-16.0); Platelet Count 90 thou/uL (130-400)
[2020-04-20] MEDS: Atorvastatin Calcium 40 MG TAB PO SCH (20:18)
[2020-04-20 21:21] LABS: Base Excess (BEa) -4.7 mEq/L (-2.0 to +3.0); CO2 Tension 41.1 mmHg (35.0-45.0); Carboxyhemoglobin (COHb) 0.3 gm% (0.0-3.0); Hemoglobin (Hb) 11.7 g/dL (12.0-16.0); Potassium - ABG Lab 4.79 mmol/L (3.70-5.30); pH, Arterial 7.33 (7.35-7.45)
[2020-04-20 21:25] LABS: Puncture Site LRA
[2020-04-20 21:26] LABS: ALV-art Gradient 65.305 mmHg (0-20)
[2020-04-20] MEDS ORDERED: Norepinephrine 8 MG/0.9% NS 250 ML ONE (21:29)
[2020-04-20] MEDS ORDERED: Norepinephrine 8 MG/0.9% NS 250 ML IVPB SCH (21:30)
[2020-04-20 21:37] LABS: #Eosinphils 0.1 thou/uL (0.0-0.7); #Lymphocytes 0.6 thou/uL (1.20-3.40); #Monocytes 0.7 thou/uL (0.11-0.59); #Neutrophils 3.8 thou/uL (1.40-6.50); %Basophils 0.7 % (0.0-1.0); %Eosinophils 1.4 % (0.0-10.0); %Lymphocytes 10.7 % (21.0-51.0); %Monocytes 13.2 % (0.0-10.0); Hemoglobin 11.4 g/dL (12.0-16.0); Mean Corpuscular HGB CONC 32.3 g/dL (32.0-36.0); Mean Corpuscular Hemoglobin 34.2 pg (27.0-31.0); Mean Platelet Volume 8.4 fL (7.4-10.4); Platelet Count 96 thou/uL (130-400); RBC Distribution Width 13.6 % (11.5-14.5); Red Blood Cell (RBC) Count 3.34 mill/uL (4.20-5.40); White Blood Cell (WBC) Count 5.2 thou/uL (4.8-10.8)
[2020-04-20 21:42] LABS: INR-International Normal Ratio 2.7; Prothrombin Time 28.9 sec (12.0-14.7)
[2020-04-20 21:53] LABS: Lactic Acid 2.6 mmol/L (0.5-2.2)
[2020-04-20 21:55] LABS: Anion Gap 18 mmol/L (10-20); BUN (Urea Nitrogen) 38 mg/dL (9.8-20.1); Calc. Creatinine Clearance 30 mL/min (70-130); Calcium 8.7 mg/dL (7.8-10.44); Carbon Dioxide 19 mmol/L (23-31); Chloride 106 mmol/L (98-107); Glucose 168 mg/dL (83-110); Potassium 4.8 mmol/L (3.5-5.1); Sodium 138 mmol/L (136-145)
[2020-04-20] MEDS ORDERED: Sodium Chloride 0.9% 1,000 ML IV SCH (22:45)
--- NOTE | 2020-04-20 22:49 | RAD ---
PORTABLE CHEST: 04/20/20 PROVIDED CLINICAL HISTORY: Shortness of breath. FINDINGS: Comparison 04/18/20. The cardiac and mediastinal silhouette is unchanged in appearance. Median sternotomy changes and athe rosclerosis are redemonstrated. Right basilar pleural parenchymal opacity is similar to prior. Lungs appear otherwise clear. There is no pneumothorax evident. IMPRESSION: Stable radiographic appearance of the chest. POS: MERRY
--- NOTE | 2020-04-20 23:18 | PDOC.OP ---
Operative Note - Operative Note Operative Note: PROCEDURE: Right internal jugular central venous catheter placement with ultrasound guidance SURGEON: Dayanna Rivera MD DIAGNOSIS: Hypotension with need for pressors. Fully anticoagulated with left leg DVT. PROCEDURE IN DETAIL: After informed consent was obtained the patient was prepped and draped in standard sterile fashion and placed in Trendelenburg position. A sterile ultrasound probe was used to identify the patent compressible internal jugular vein and local anesthesia was infused the skin and subcutaneous tissues overlying this. The vein was accessed under direct ultrasound guidance and a wire threaded through the needle. The needle was removed leaving the wire in place which was confirmed by ultrasound to be within the patent compressible vein. The skin was incised and the tract was dilated. A triple-lumen catheter was placed over the wire and secured to the skin at 2 locations. The patient was noted to have some oozing around the catheter especially with head movement so a pursestring suture was placed around the exit site and secured. A Biopatch and Tegaderm dressing was placed. All 3 ports easily aspirated dark venous nonpulsatile blood and easily flushed without resistance. A portable chest x-ray shows no evidence of pneumothorax and good position of the catheter. There were no immediate complications. Estimated blood loss is minimal. There were no specimens.
[2020-04-21] MEDS: cefTRIAXone\\ROCEPHIN 1 GM in Sodium Chloride 0.9% 100 ML IVPB SCH ×2 (01:58→20:16)
[2020-04-21 02:07] LABS: CKMB 3.4 ng/mL (0-6.6)
--- NOTE | 2020-04-21 04:04 | PDOC.EVN ---
Event Note - Event Note Event Note: Code Peter called at approximately 2100. Patient called RN in distress found to be 86% on 2L NC with SBP of 60 manually. Patient AOx4. 1L NS bolus started. Patient with persistent symptomatic hypotension. CXR with no major abnormalities. Patient admitted for LLE DVT on warfarin. EF 50-55%. STAT CBC, BMP, ABG, Troponin, Lactic Acid, EKG ordered. Patient transferred to CCU. Central line placed and levophed started. Dr. Garcia also at bedside. Agrees with a/p.
[2020-04-21 04:30] LABS: #Basophils 0.1 thou/uL (0.0-0.2); #Lymphocytes 1.2 thou/uL (1.20-3.40); #Monocytes 1.2 thou/uL (0.11-0.59); #Neutrophils 6.5 thou/uL (1.40-6.50); %Basophils 0.7 % (0.0-1.0); %Eosinophils 0.4 % (0.0-10.0); %Lymphocytes 13.2 % (21.0-51.0); %Monocytes 13.2 % (0.0-10.0); %Neutrophils 72.6 % (42.0-75.0); Hemoglobin 10.7 g/dL (12.0-16.0); Mean Corpuscular HGB CONC 30.7 g/dL (32.0-36.0); Mean Corpuscular Hemoglobin 32.5 pg (27.0-31.0); Platelet Count 131 thou/uL (130-400); RBC Distribution Width 13.6 % (11.5-14.5); Red Blood Cell (RBC) Count 3.31 mill/uL (4.20-5.40)
[2020-04-21 04:36] LABS: INR-International Normal Ratio 2.6; Prothrombin Time 28.3 sec (12.0-14.7)
[2020-04-21 04:47] LABS: Anion Gap 17 mmol/L (10-20); BUN (Urea Nitrogen) 40 mg/dL (9.8-20.1); Calc. Creatinine Clearance 30 mL/min (70-130); Calcium 8.3 mg/dL (7.8-10.44); Carbon Dioxide 21 mmol/L (23-31); Chloride 105 mmol/L (98-107); Glucose 147 mg/dL (83-110); Potassium 4.9 mmol/L (3.5-5.1); Sodium 138 mmol/L (136-145)
[2020-04-21] MEDS: Levothyroxine Sodium 112 MCG TAB PO SCH (05:36)
--- NOTE | 2020-04-21 06:59 | RAD ---
PORTABLE CHEST: DATE: 04/20/2020. PROVIDED CLINICAL HISTORY: Central line placement. FINDINGS: Comparison is made with the examination performed earlier same date. Interval placement of right IJ central line, the tip of which projects over the expected location of right atrium. There is no evid ence of pneumothorax. Additional significant interval change with respect to the prior examination i s not apparent. IMPRESSION: As above. POS: MERRY
--- NOTE | 2020-04-21 07:55 | PDOC.HOSPP ---
- Subjective Encounter Date: 04/21/20 Encounter Time: 10:30 Subjective: Patient had hypotension overnight. Now on Levophed. Breathing a bit better today. - Objective Vital Signs & Weight: Vital Signs (12 hours) Temp Pulse Resp BP BP Pulse Ox Pulse Ox 04/21/20 06:49 97 04/21/20 03:00 97.5 F L 04/21/20 01:42 100 04/20/20 23:00 97.7 F 04/20/20 22:00 96 04/20/20 20:55 54 L 20 60/40 L 64/48 L 97 Weight Admit Weight 175 lb 12.48 oz Weight 177 lb Most Recent Monitor Data Heart Rate from ECG 57 NIBP 134/66 NIBP BP-Mean 88 Respiration from ECG 20 SpO2 97 I&O: 04/20/20 04/21/20 04/22/20 06:59 06:59 06:59 Intake Total 590 2228 Output Total 425 565 Balance 165 1663 Result Diagrams: 04/21/20 04:10 04/21/20 04:10 Additional Labs: Accuchecks 04/20/20 20:58 POC Glucose 178 H Hospitalist ROS - Review of Systems Constitutional: denies: fever, chills Respiratory: reports: shortness of breath. denies: cough Cardiovascular: denies: chest pain, palpitations Gastrointestinal: denies: nausea, vomiting, abdominal pain Musculoskeletal: denies: leg pain - Medication Medications: Active Medications Generic Name Dose Route Start Last Admin Trade Name Freq PRN Reason Stop Dose Admin Albuterol/Ipratropium 3 ml 04/18/20 22:30 04/19/20 23:47 Ipratropium/Albuterol Sulfate 3 Ml Neb NEB 3 ml [id number] PRN Administration SOB &/or Wheezing Aspirin 81 mg 04/20/20 09:00 04/20/20 08:06 Aspirin 81 Mg Enteric Coated Tablet PO 81 mg DAILY [facility]ANG[facility]O Administration Atorvastatin Calcium 40 mg 04/20/20 21:00 04/20/20 20:18 Atorvastatin Calcium 40 Mg Tab PO 40 mg HS DANGELO Administration Carvedilol 3.125 mg 04/19/20 17:00 04/20/20 17:58 Carvedilol 3.125 Mg Tab PO 3.125 mg BID-WM [facility] Administration Furosemide 20 mg 04/20/20 09:00 04/20/20 08:06 Furosemide 20 Mg/2 Ml Vial SLOW IVP Not Given DAILY DANG[facility]O Ceftriaxone Sodium 1 gm/ 100 mls @ 200 mls/hr 04/18/20 21:00 04/21/20 01:58 Sodium Chloride IVPB 100 mls Q24HR DANGELO Administration Azithromycin 500 mg/ Sodium 250 mls @ 250 mls/hr 04/18/20 20:00 04/20/20 19:45 Chloride IVPB 250 mls Q24HR DANG[facility]O Administration Levothyroxine Sodium 112 mcg 04/20/20 06:00 04/21/20 05:36 Levothyroxine Sodium 112 Mcg Tab PO 112 mcg 0600 [facility] Administration Losartan Potassium 25 mg 04/20/20 09:00 04/20/20 08:07 Losartan 25 Mg Tab PO 25 mg DAILY [facility] Administration Sertraline HCl 100 mg 04/20/20 09:00 04/20/20 08:07 Sertraline Hcl 100 Mg Tab PO 100 mg DAILY [facility] Administration Torsemide 10 mg 04/20/20 09:00 04/20/20 08:07 Torsemide 20 Mg Tab PO 10 mg DAILY [facility]ANG[facility]O Administration - Exam General Appearance: NAD, awake alert ENT: moist mucosa Heart: RRR, no murmur, no gallops, no rubs Respiratory: CTAB, no wheezes, no rales, no ronchi Gastrointestinal: soft, non-tender, non-distended, normal bowel sounds Psychiatric: normal affect, normal behavior, A&O x 3 Hosp A/P - Plan case of an 84y/o female with the stated pmhx who present with dyspnea and an acute dvt on therapeutic coumadin Acute cardiogenic shock - hypotension 04/20/2020 night, fluids and then levophed started and CVL placed - cardiology following - no evidence infection at this time DVT - us consistent with L leg DVT - patient on therapeutic dose of warfarin, inr 2.9 - was put on heparin drip but that was discontinued - CTA showed no PE - I spoke to CT surgery and Dr. 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 - Heme/Onc consulted, also discussed with cardiology. Dr. Russ suspicious that this is not acute, recommends continuing Coumadin at current target of INR 2-3. atrial fibrillation - continue beta francois for rate control - cardiac monitoring acute on chronic diastolic chf - on Torsemide and IV lasix added, was diuresing but then became hypotensive - hold betablocker for hypotension Acute on chronic renal failure - Creatinine bumped a bit with diuresis, will need to watch closely cad - continue cad protective med with statin, asa and beta francois hypothyroidism - continue levothyroxine
[2020-04-21] MEDS: Torsemide 20 MG TAB PO SCH (09:28)
[2020-04-21] MEDS: Losartan 25 MG TAB PO SCH (09:29)
[2020-04-21] MEDS: Carvedilol 3.125 MG TAB PO SCH ×2 (09:29→17:08)
[2020-04-21] MEDS: Aspirin 81 mg Enteric Coated Tablet PO SCH (09:29)
[2020-04-21] MEDS: Furosemide 20 MG/2 ML VIAL SLOW IVP SCH (09:30)
[2020-04-21] MEDS ORDERED: Cosyntropin 250 MCG VIAL SLOW IVP SCH (11:30)
[2020-04-21] MEDS: Warfarin Sodium 5 MG TAB PO SCH (17:09)
--- NOTE | 2020-04-21 18:27 | CON ---
DATE OF CONSULTATION: 04/21/2020 HISTORY OF PRESENT ILLNESS: Ms. Mansfield is a very pleasant 84-year-old female. Apparently, she was transferred into critical care unit because of hypotension. When I saw her, she had no complaints. She had been identified as having a deep vein thrombosis this admission. She had a CT angiogram shortly afterwards did not show any evidence of thromboembolic disease. Dilated right atrium was noted. Coronary calcium was identified. PAST MEDICAL HISTORY: Remarkable for: 1. Atrial fibrillation, treated with Coumadin. 2. History of hypertension. 3. History of coronary artery disease. 4. She was therapeutic when she was admitted apparently. 5. History of appendectomy. 6. History of cholecystectomy. 7. History of coronary artery bypass grafting in the past. 8. Status post hysterectomy. FAMILY HISTORY: Negative for lung disease in early age. SOCIAL HISTORY: She is a nonsmoker and nondrinker. REVIEW OF SYSTEMS: Ten-point review of systems otherwise negative. PHYSICAL EXAMINATION: GENERAL: Very pleasant, cooperative, in no distress. VITAL SIGNS: Blood pressure 121/60, heart rate 65, respiratory rates in the 20s, oximetry is 97. HEAD AND NECK: Unremarkable. No lymphadenopathy. LUNGS: Clear. HEART: Regular rhythm. S1 and S2 are normal. ABDOMEN: Soft and nontender. EXTREMITIES: Without clubbing, cyanosis, or edema. IMPRESSION: 1. Hypotension, resolving. ACTH stimulation test was ordered, did not show any evidence of adrenal insufficiency. Her baseline cortisol was 19 and at 60 minutes was 30. She appears to be stabilizing. She does have an elevated creatinine. It is unclear why she has a deep vein thrombosis, on warfarin unless this is an old clot that existed prior to the initiation of anticoagulation during a subtherapeutic window. I doubt she embolized earlier this morning, but I suppose erratically that is possible. It would be unlikely given ongoing anticoagulation. I would agree with Dr. Russ that this clot is probably not acute. I would continue with anticoagulation with warfarin and supportive care. This is a 70 min consult with greater than 50% of the time spent on the unit with coordination of care Job ID: [id number] [facility]
[2020-04-21] MEDS: Atorvastatin Calcium 40 MG TAB PO SCH (20:16)
[2020-04-21] MEDS: Azithromycin 500 MG in Sodium Chloride 0.9% 250 ML 250 ML IVPB SCH (20:16)
[2020-04-22 04:41] LABS: INR-International Normal Ratio 2.1; Prothrombin Time 24.2 sec (12.0-14.7)
[2020-04-22 05:17] LABS: Anion Gap 13 mmol/L (10-20); BUN (Urea Nitrogen) 41 mg/dL (9.8-20.1); Calc. Creatinine Clearance 35 mL/min (70-130); Calcium 8.3 mg/dL (7.8-10.44); Carbon Dioxide 24 mmol/L (23-31); Chloride 105 mmol/L (98-107); Glucose 97 mg/dL (83-110); Potassium 4.3 mmol/L (3.5-5.1); Sodium 138 mmol/L (136-145)
[2020-04-22] MEDS: Levothyroxine Sodium 112 MCG TAB PO SCH (05:59)
[2020-04-22] MEDS: Carvedilol 3.125 MG TAB PO SCH ×2 (08:26→16:54)
[2020-04-22] MEDS: Losartan 25 MG TAB PO SCH (08:27)
[2020-04-22] MEDS: Aspirin 81 mg Enteric Coated Tablet PO SCH (08:27)
--- NOTE | 2020-04-22 12:14 | PRG ---
DATE OF SERVICE: 04/22/2020 SUBJECTIVE: 84-year-old female who was transferred last evening with hypotension. OBJECTIVE: VITAL SIGNS: Blood pressure 106/52 this morning. She is off Levophed. Pulse 70, sats 97% on 4 L. GENERAL: She is short of breath, but denied chest pain. CHEST: No wheezing. No crackles. CARDIAC: Normal S1, S2. No masses. LABORATORY DATA: Creatinine 1.52. INR is 2.1. ASSESSMENT: 1. Congestive heart failure, on multiple antibiotics, unclear why. 2. Deep venous thrombosis. 3. Severe mitral regurgitation. PLAN: Pulmonary logan, I would discontinue all antibiotics. Continue supportive care. Disposition as per Cardiology. Job ID: [id number]
[2020-04-22] MEDS ORDERED: Warfarin Sodium 7.5 MG TAB PO SCH (17:00)
--- NOTE | 2020-04-22 18:06 | PDOC.HOSPP ---
- Subjective Encounter Date: 04/22/20 Encounter Time: 18:00 Subjective: f/u for hypotension likely iatrogenic on prior Levophed now d/c'd. Pt states general weakness but no SOB/CP/fever. - Objective Vital Signs & Weight: Vital Signs (12 hours) Temp Pulse Ox 04/22/20 16:00 97.9 F 04/22/20 12:00 98.4 F 04/22/20 08:00 98.2 F 93 L 04/22/20 07:18 99 Weight Admit Weight 175 lb 12.48 oz Weight 174 lb Most Recent Monitor Data Heart Rate from ECG 66 NIBP 115/57 NIBP BP-Mean 76 Respiration from ECG 22 SpO2 96 I&O: 04/21/20 04/22/20 04/23/20 06:59 06:59 06:59 Intake Total 2228 756 690 Output Total 565 1676 650 Balance 1663 -920 40 Result Diagrams: 04/21/20 04:10 04/22/20 04:15 Additional Labs: Laboratory Tests 04/19/20 04/19/20 04/19/20 04:54 04:54 04:54 Hgb Plt Count 93 L INR Creatinine Lactic Acid B-Natriuretic Peptide 884.3 H TSH 3rd Generation 1.0824 04/20/20 04/20/20 04/20/20 19:54 19:55 21:28 Hgb 10.7 L Plt Count 90 L INR Creatinine 1.77 H Lactic Acid B-Natriuretic Peptide 469.1 H TSH 3rd Generation 04/20/20 04/20/20 04/20/20 21:28 21:28 21:28 Hgb 11.4 L Plt Count 96 L INR 2.7 Creatinine Lactic Acid 2.6 H B-Natriuretic Peptide TSH 3rd Generation 04/21/20 04/21/20 04/22/20 04:10 04:10 04:15 Hgb Plt Count INR 2.6 2.1 Creatinine 1.76 H Lactic Acid B-Natriuretic Peptide TSH 3rd Generation Radiology Reviewed by me: Yes (Echo - EF 55-60%, mod MR/TR) EKG Reviewed by me: Yes (Tele - SR) Hospitalist ROS - Medication Medications: Active Medications Generic Name Dose Route Start Last Admin Trade Name Freq PRN Reason Stop Dose Admin Acetaminophen 650 mg 04/18/20 19:29 04/21/20 20:16 Acetaminophen 325 Mg Tab PO 650 mg Q4H PRN Administration Headache/Fever/Mild Pain (1-3) Albuterol/Ipratropium 3 ml 04/18/20 22:30 04/21/20 21:38 Ipratropium/Albuterol Sulfate 3 Ml Neb NEB 3 ml [id number] PRN Administration SOB &/or Wheezing Aspirin 81 mg 04/20/20 09:00 04/22/20 08:27 Aspirin 81 Mg Enteric Coated Tablet PO 81 mg DAILY DANGELO Administration Atorvastatin Calcium 40 mg 04/20/20 21:00 04/21/20 20:16 Atorvastatin Calcium 40 Mg Tab PO 40 mg HS [facility] Administration Carvedilol 3.125 mg 04/19/20 17:00 04/22/20 16:54 Carvedilol 3.125 Mg Tab PO Not Given BID-[facility] Cosyntropin 250 mcg 04/21/20 11:30 04/21/20 12:45 Cosyntropin 250 Mcg Vial SLOW IVP 250 mcg [facility] Administration Isosorbide Mononitrate 60 mg 04/21/20 09:00 04/22/20 08:27 Isosorbide Mononitrate Er 60 Mg Tab PO 60 mg QAM [facility] Administration Levothyroxine Sodium 112 mcg 04/20/20 06:00 04/22/20 05:59 Levothyroxine Sodium 112 Mcg Tab PO 112 mcg 0600 [facility] Administration Losartan Potassium 25 mg 04/20/20 09:00 04/22/20 08:27 Losartan 25 Mg Tab PO 25 mg DAILY [facility] Administration Sertraline HCl 100 mg 04/20/20 09:00 04/22/20 08:26 Sertraline Hcl 100 Mg Tab PO 100 mg DAILY [facility] Administration Warfarin Sodium 5 mg 04/21/20 17:00 04/21/20 17:09 Warfarin Sodium 5 Mg Tab PO 5 mg [email or web address] [facility] Administration Warfarin Sodium 7.5 mg 04/22/20 17:00 04/22/20 16:54 Warfarin Sodium 7.5 Mg Tab PO 7.5 mg [email or web address] [facility] Administration - Exam General Appearance: NAD, awake alert General - other findings: talkative, responsive Eye: PERRL, anicteric sclera ENT: normocephalic atraumatic, no oropharyngeal lesions Neck: supple, symmetric, no JVD, no thyromegaly Heart: RRR, no gallops, no rubs, normal peripheral pulses Heart - other findings: S1, S2 Respiratory: CTAB, no wheezes, no rales, no ronchi, normal chest expansion Gastrointestinal: soft, non-tender, non-distended, normal bowel sounds, no palpable masses Extremities: no cyanosis, no clubbing, no edema Skin: normal turgor Neurological: cranial nerve grossly intact, no new deficit Musculoskeletal: normal tone, generalized weakness Psychiatric: normal affect, A&O x 3 Hosp A/P (1) Hypotension, iatrogenic Code(s): I95.89 - OTHER HYPOTENSION Status: Acute Plan: Titrate BP regimen to clincal response, serial monitoring (2) Acute kidney injury superimposed on CKD Code(s): N17.9 - ACUTE KIDNEY FAILURE, UNSPECIFIED; N18.9 - CHRONIC KIDNEY DISEASE, UNSPECIFIED Status: Acute Plan: Avoid nephrotoxic meds and limit contrast exposure, improved (3) Acute on chronic diastolic (congestive) heart failure Code(s): I50.33 - ACUTE ON CHRONIC DIASTOLIC (CONGESTIVE) HEART FAILURE Statu s: Acute Plan: Continue Torsemide, likely valvular in nature in conjunction with diastolic dysfunction, EF 55-60% (4) Atrial fibrillation Code(s): I48.91 - UNSPECIFIED ATRIAL FIBRILLATION Status: Chronic Plan: Rate-controlled, continue Coreg for rate-control (5) DVT (deep venous thrombosis) Code(s): I82.409 - ACUTE EMBOLISM AND THOMBOS UNSP DEEP VN UNSP LOWER EXTREMITY Status: Chronic Qualifiers: DVT location: lower extremity Laterality: left Plan: Continue Coumadin, INR therapeutic - Plan PT/OT, home health care social worker, out of bed/ambulate, DVT proph w/SCDs Stable currently Monitor BP trend closely OOB with PT Transfer to tele floor AM lab: BMP, H/H, PT/INR
[2020-04-22] MEDS: Atorvastatin Calcium 40 MG TAB PO SCH (19:53)
[2020-04-22 21:03] LABS: Platelet Count 95 thou/uL (130-400)
[2020-04-23 04:39] LABS: INR-International Normal Ratio 2.2; Prothrombin Time 24.7 sec (12.0-14.7)
[2020-04-23 04:43] LABS: Anion Gap 14 mmol/L (10-20); BUN (Urea Nitrogen) 41 mg/dL (9.8-20.1); Calc. Creatinine Clearance 35 mL/min (70-130); Carbon Dioxide 23 mmol/L (23-31); Chloride 105 mmol/L (98-107); Potassium 4.4 mmol/L (3.5-5.1); Sodium 138 mmol/L (136-145)
[2020-04-23 04:44] LABS: Calcium 8.4 mg/dL (7.8-10.44); Glucose 105 mg/dL (83-110)
[2020-04-23] MEDS: Levothyroxine Sodium 112 MCG TAB PO SCH (05:18)
[2020-04-23] MEDS: Carvedilol 3.125 MG TAB PO SCH ×2 (08:00→16:04)
[2020-04-23] MEDS: Aspirin 81 mg Enteric Coated Tablet PO SCH (08:00)
[2020-04-23] MEDS: Losartan 25 MG TAB PO SCH (08:01)
[2020-04-23] MEDS ORDERED: Furosemide 20 MG/2 ML VIAL SLOW IVP SCH ×2 (10:45→20:00)
--- NOTE | 2020-04-23 14:32 | PRG ---
DATE OF SERVICE: 04/23/2020 SUBJECTIVE: Sitting on the side of the bed with the temp 97, pulse 60, respirations 16, sats 97% on 2 L, blood pressure 101/60. Denies any shortness of breath. OBJECTIVE: EXTREMITIES: Legs appear to be not swollen. CHEST: No wheezing. No crackles. CARDIAC: Normal S1, S2. ABDOMEN: No masses. LABORATORY DATA: INR 2.2. ASSESSMENT: 1. Deep venous thrombosis. 2. Severe deconditioning. 3. Advanced age. PLAN: Continue Coumadin. Supportive care. Job ID: [id number]
--- NOTE | 2020-04-23 14:46 | RAD ---
EXAM: Chest one view: HISTORY: Tachypnea COMPARISON: 04/20/2020 FINDINGS: Right central line in place. Heart size: Marked cardiomegaly. Lungs: Bilateral vascular congestion with increased markings bilaterally. Small bilateral pleural effusions. IMPRESSION: No significant change from prior study.
[2020-04-23] MEDS: Warfarin Sodium 5 MG TAB PO SCH (16:23)
--- NOTE | 2020-04-23 19:48 | PDOC.HOSPP ---
- Subjective Encounter Date: 04/23/20 Encounter Time: 10:00 Subjective: F/u: Shortness of breath The patient was very tachypneic this am. She stated her breathing had not improved that much. She asks if she will be supplied with oxygen at home because it is helping her She did have some orthopnea. She denies cough or chest pain . She reports she smoked occasionally for six months years ago - Objective Vital Signs & Weight: Vital Signs (12 hours) Temp Pulse Resp BP Pulse Ox 04/23/20 16:00 97.6 F 69 16 135/62 93 L 04/23/20 11:01 97.7 F 68 16 101/60 97 Weight Admit Weight 175 lb 12.48 oz Weight 176 lb 9.6 oz Most Recent Monitor Data Heart Rate from ECG 61 NIBP 97/60 NIBP BP-Mean 72 Respiration from ECG 17 SpO2 98 I&O: 04/22/20 04/23/20 04/24/20 06:59 06:59 06:59 Intake Total 756 1040 Output Total 1676 850 Balance -920 190 Result Diagrams: 04/22/20 19:49 04/23/20 03:59 Hospitalist ROS - Review of Systems Constitutional: denies: fever, chills - Medication Medications: Active Medications Generic Name Dose Route Start Last Admin Trade Name Freq PRN Reason Stop Dose Admin Acetaminophen 650 mg 04/18/20 19:29 04/21/20 20:16 Acetaminophen 325 Mg Tab PO 650 mg Q4H PRN Administration Headache/Fever/Mild Pain (1-3) Albuterol/Ipratropium 3 ml 04/18/20 22:30 04/21/20 21:38 Ipratropium/Albuterol Sulfate 3 Ml Neb NEB 3 ml [id number] PRN Administration SOB &/or Wheezing Aspirin 81 mg 04/20/20 09:00 04/23/20 08:00 Aspirin 81 Mg Enteric Coated Tablet PO 81 mg DAILY DANGELO Administration Atorvastatin Calcium 40 mg 04/20/20 21:00 04/22/20 19:53 Atorvastatin Calcium 40 Mg Tab PO 40 mg HS DANGELO Administration Carvedilol 3.125 mg 04/19/20 17:00 04/23/20 16:04 Carvedilol 3.125 Mg Tab PO 3.125 mg BID-WM DANGELO Administration Cosyntropin 250 mcg 04/21/20 11:30 04/21/20 12:45 Cosyntropin 250 Mcg Vial SLOW IVP 250 mcg [facility] Administration Isosorbide Mononitrate 60 mg 04/21/20 09:00 04/23/20 08:00 Isosorbide Mononitrate Er 60 Mg Tab PO Not Given QAM [facility] Levothyroxine Sodium 112 mcg 04/20/20 06:00 04/23/20 05:18 Levothyroxine Sodium 112 Mcg Tab PO 112 mcg 0600 [facility] Administration Losartan Potassium 25 mg 04/20/20 09:00 04/23/20 08:01 Losartan 25 Mg Tab PO 25 mg DAILY DANGELO Administration Sertraline HCl 100 mg 04/20/20 09:00 04/23/20 08:01 Sertraline Hcl 100 Mg Tab PO 100 mg DAILY [facility] Administration Warfarin Sodium 5 mg 04/21/20 17:00 04/23/20 16:23 Warfarin Sodium 5 Mg Tab PO 5 mg [email or web address] [facility] Administration Warfarin Sodium 7.5 mg 04/22/20 17:00 04/22/20 16:54 Warfarin Sodium 7.5 Mg Tab PO 7.5 mg [email or web address] [facility] Administration - Exam General Appearance: NAD, awake alert Eye: PERRL, anicteric sclera ENT: normocephalic atraumatic, no oropharyngeal lesions Neck: supple, symmetric, no JVD Heart: RRR, no murmur, no gallops, no rubs Respiratory - other findings: diminished breath sounds Gastrointestinal: soft, non-tender, non-distended, normal bowel sounds Extremities: no cyanosis, no clubbing, no edema Hosp A/P - Plan ECHO: EF 50-55%, increased right atrial size. Severe MR, severe TR. Vascular US: deep femoral DVT THis is an 84 year old female who presented with shortness of breath. She was found to have Acute diastolic heart failure possibly from severe MR - chesT X ray today shows small bilateral pleural effusions. She improved with 20 mg IV lasix , will give additional 20 mg - cardiology is planning on considering PATRICIO for possible evaluation of mitral valve clipping for her MR - continue coreg, losartan, aspirin, statin JORGE - creatinine 1.52, baseline appears to be 1.2 to 1.3. Continue diuresis Hypothyroidism - continue levothyroxine Hypertension - continue losartan 25 mg daily Deep femoral DVT - continue warfarin. INR is therapeutic
[2020-04-23] MEDS: Atorvastatin Calcium 40 MG TAB PO SCH (21:01)
[2020-04-24 04:39] LABS: INR-International Normal Ratio 2.8; Prothrombin Time 30.5 sec (12.0-14.7)
[2020-04-24 04:44] LABS: Anion Gap 16 mmol/L (10-20); BUN (Urea Nitrogen) 40 mg/dL (9.8-20.1); Calc. Creatinine Clearance 37 mL/min (70-130); Calcium 8.5 mg/dL (7.8-10.44); Carbon Dioxide 22 mmol/L (23-31); Chloride 106 mmol/L (98-107); Glucose 119 mg/dL (83-110); Magnesium 2.1 mg/dL (1.6-2.6); Potassium 4.6 mmol/L (3.5-5.1); Sodium 139 mmol/L (136-145)
[2020-04-24] MEDS: Levothyroxine Sodium 112 MCG TAB PO SCH (06:15)
[2020-04-24] MEDS: Losartan 25 MG TAB PO SCH (08:54)
[2020-04-24] MEDS: Carvedilol 3.125 MG TAB PO SCH ×2 (08:54→17:15)
[2020-04-24] MEDS: Aspirin 81 mg Enteric Coated Tablet PO SCH (08:54)
--- NOTE | 2020-04-24 11:37 | PDOC.HOSPP ---
- Subjective Encounter Date: 04/24/20 Encounter Time: 11:35 Subjective: Patient states she coughed up some bloody mucus - Objective Vital Signs & Weight: Vital Signs (12 hours) Temp Pulse Resp BP Pulse Ox 04/24/20 07:31 97.6 F 61 18 125/61 98 04/24/20 04:00 97.7 F 65 16 112/59 L 99 04/24/20 00:59 97.5 F L 70 18 119/59 L 97 Weight Admit Weight 175 lb 12.48 oz Weight 174 lb 6.4 oz Most Recent Monitor Data Heart Rate from ECG 61 NIBP 97/60 NIBP BP-Mean 72 Respiration from ECG 17 SpO2 98 I&O: 04/23/20 04/24/20 04/25/20 06:59 06:59 06:59 Intake Total 1040 132 Output Total 850 150 Balance 190 -18 Result Diagrams: 04/22/20 19:49 04/24/20 04:08 Hospitalist ROS - Review of Systems Constitutional: denies: fever, chills - Medication Medications: Active Medications Generic Name Dose Route Start Last Admin Trade Name Freq PRN Reason Stop Dose Admin Acetaminophen 650 mg 04/18/20 19:29 04/21/20 20:16 Acetaminophen 325 Mg Tab PO 650 mg Q4H PRN Administration Headache/Fever/Mild Pain (1-3) Albuterol/Ipratropium 3 ml 04/18/20 22:30 04/21/20 21:38 Ipratropium/Albuterol Sulfate 3 Ml Neb NEB 3 ml [id number] PRN Administration SOB &/or Wheezing Aspirin 81 mg 04/20/20 09:00 04/24/20 08:54 Aspirin 81 Mg Enteric Coated Tablet PO 81 mg DAILY [facility]ANGELO Administration Atorvastatin Calcium 40 mg 04/20/20 21:00 04/23/20 21:01 Atorvastatin Calcium 40 Mg Tab PO 40 mg HS [facility] Administration Carvedilol 3.125 mg 04/19/20 17:00 04/24/20 08:54 Carvedilol 3.125 Mg Tab PO 3.125 mg BID-WM [facility] Administration Cosyntropin 250 mcg 04/21/20 11:30 04/21/20 12:45 Cosyntropin 250 Mcg Vial SLOW IVP 250 mcg [facility] Administration Isosorbide Mononitrate 60 mg 04/21/20 09:00 01/03/21 08:54 Isosorbide Mononitrate Er 60 Mg Tab PO Not Given QAM [facility] Levothyroxine Sodium 112 mcg 04/20/20 06:00 04/24/20 06:15 Levothyroxine Sodium 112 Mcg Tab PO 112 mcg 0600 [facility] Administration Losartan Potassium 25 mg 04/20/20 09:00 04/24/20 08:54 Losartan 25 Mg Tab PO 25 mg DAILY [facility]ANGELO Administration Sertraline HCl 100 mg 04/20/20 09:00 04/24/20 08:54 Sertraline Hcl 100 Mg Tab PO 100 mg DAILY [facility]ANG[facility] Administration Warfarin Sodium 5 mg 04/21/20 17:00 04/23/20 16:23 Warfarin Sodium 5 Mg Tab PO 5 mg [email or web address] [facility] Administration Warfarin Sodium 7.5 mg 04/22/20 17:00 04/22/20 16:54 Warfarin Sodium 7.5 Mg Tab PO 7.5 mg [email or web address] [facility] Administration - Exam General Appearance: NAD, awake alert Eye: PERRL, anicteric sclera ENT: normocephalic atraumatic, no oropharyngeal lesions Neck: no JVD Heart: RRR, no murmur, no gallops, no rubs Respiratory: wheezes Respiratory - other findings: small wheeze at right lung base Gastrointestinal: soft, non-tender, non-distended Extremities: no cyanosis, no clubbing, no edema Skin: normal turgor, no lesions, no rashes Hosp A/P - Plan ECHO: EF 50-55%, increased right atrial size. Severe MR, severe TR. Vascular US: deep femoral DVT THis is an 84 year old female who presented with shortness of breath. She was found to have Acute diastolic heart failure possibly from severe MR - chest X ray 1/2 shows small bilateral pleural effusions. Continue diureses with IV lasix - cardiology is planning on considering PATRICIO for possible evaluation of mitral valve clipping for her MR - continue coreg, losartan, aspirin, statin Hemoptysis - INR 2.8, will hold warfarin today . Repeat chest X ray JORGE - creatinine improved to 1.4. Continue IV lasix Hypothyroidism - continue levothyroxine Hypertension - continue losartan 25 mg daily Deep femoral DVT - will hold warfarin today since INR 2.8 and patient has small hemoptysis
[2020-04-24] MEDS ORDERED: Furosemide 20 MG/2 ML VIAL SLOW IVP SCH ×2 (12:00→14:00)
--- NOTE | 2020-04-24 12:44 | PRG ---
DATE OF SERVICE: 04/24/2020 SUBJECTIVE: This morning, she is awake, alert, and responsive. OBJECTIVE: VITAL SIGNS: Temperature 97, pulse 55, respiratory rate 16, saturations 95% on 2 L, and blood pressure 125/86. CHEST: Minimal crackles. CARDIAC: Normal S1, S2. ABDOMEN: No masses. LABORATORY AND DIAGNOSTIC DATA: INR is 2.8. Creatinine 1.4. X-ray shows cardiomegaly, CHF. ASSESSMENT: 1. Congestive heart failure. 2. Deep venous thrombosis. 3. Severe deconditioning. Disposition as per primary care physician. Job ID: [id number]
[2020-04-24] MEDS: Furosemide 20 MG/2 ML VIAL SLOW IVP SCH (17:14)
--- NOTE | 2020-04-24 17:28 | RAD ---
EXAM: CHEST ONE VIEW HISTORY: Hemoptysis. Patient on warfarin COMPARISON: 04/23/2020 FINDINGS: Right-sided vascular catheter remains in place with tip overlying right atrium. Postoperative changes related to median sternotomy are again seen. Cardiac silhouette remains markedly enlarged. Pulmonary vasculature is within normal limits. There is suggestion of small bilateral pleural effusio ns similar to prior exam. No significant interval change from prior study. IMPRESSION: Stable chest.
[2020-04-24 20:02] LABS: Hemoglobin 10.6 g/dL (12.0-16.0); Platelet Count 89 thou/uL (130-400)
[2020-04-24] MEDS: Atorvastatin Calcium 40 MG TAB PO SCH (20:44)
[2020-04-24] MEDS ORDERED: Senokot S 8.6-50 MG TAB PO PRN (20:57)
[2020-04-25 04:30] LABS: INR-International Normal Ratio 3.1; Prothrombin Time 32.5 sec (12.0-14.7)
[2020-04-25 04:38] LABS: Anion Gap 15 mmol/L (10-20); BUN (Urea Nitrogen) 42 mg/dL (9.8-20.1); Calc. Creatinine Clearance 38 mL/min (70-130); Calcium 8.3 mg/dL (7.8-10.44); Carbon Dioxide 21 mmol/L (23-31); Chloride 105 mmol/L (98-107); Glucose 107 mg/dL (83-110); Potassium 4.3 mmol/L (3.5-5.1); Sodium 137 mmol/L (136-145)
[2020-04-25] MEDS: Levothyroxine Sodium 112 MCG TAB PO SCH (06:36)
[2020-04-25] MEDS: Furosemide 20 MG/2 ML VIAL SLOW IVP SCH ×2 (06:36→17:50)
[2020-04-25] MEDS: Carvedilol 3.125 MG TAB PO SCH ×2 (09:35→17:50)
[2020-04-25] MEDS: Aspirin 81 mg Enteric Coated Tablet PO SCH (09:35)
--- NOTE | 2020-04-25 09:46 | PDOC.CPN ---
- Subjective Date: 04/25/20 Time: 08:30 Interval history: Mrs. becker is resting comfortably. She says her continued complaint is SOB and fluid in her belly. She also complains of constipation. - Review of Systems General: denies: fever/chills, weight/appetite/sleep changes, night sweats, fatigue Respiratory: reports: shortness of breath, exercise intolerance. denies: cough, congestion Cardiovascular: denies: chest pain, palpitation, edema, paroxysmal nocturnal dyspnea, orthopnea Gastrointestinal: reports: constipation Musculoskeletal: denies: pain, tenderness, stiffness, swelling, arthritis/arthralgias Neurological: reports: weakness. denies: numbness, syncope, seizure - Objective Allergies/Adverse Reactions: Allergies Allergy/AdvReac Type Severity Reaction Status Date / Time Iodinated Contrast Media Allergy Verified 04/19/20 17:40 [Iodinated Contrast Media - IV Dye] shellfish derived Allergy Verified 04/19/20 17:40 Visit Medications: Current Medications Acetaminophen (Acetaminophen 325 Mg Tab) 650 mg PO Q4H PRN PRN Reason: Headache/Fever/Mild Pain (1-3) Last Admin: 04/21/20 20:16 Dose: 650 mg Documented by: Acetaminophen (Acetaminophen 650 Mg Suppository) 650 mg [place] Q4H PRN PRN Reason: Headache/Fever/Mild Pain (1-3) Albuterol/Ipratropium (Ipratropium/Albuterol Sulfate 3 Ml Neb) 3 ml NEB [id number] PRN PRN Reason: SOB &/or Wheezing Last Admin: 04/21/20 21:38 Dose: 3 ml Documented by: Aspirin (Aspirin 81 Mg Enteric Coated Tablet) 81 mg PO DAILY [facility] Last Admin: 04/25/20 09:35 Dose: 81 mg Documented by: Atorvastatin Calcium (Atorvastatin Calcium 40 Mg Tab) 40 mg PO HS [facility] Last Admin: 04/24/20 20:44 Dose: 40 mg Documented by: Carvedilol (Carvedilol 3.125 Mg Tab) 3.125 mg PO BID-[facility] Last Admin: 04/25/20 09:35 Dose: 3.125 mg Documented by: Cosyntropin (Cosyntropin 250 Mcg Vial) 250 mcg SLOW IVP WILLCALL [facility] Last Admin: 04/21/20 12:45 Dose: 250 mcg Documented by: Furosemide (Furosemide 20 Mg/2 Ml Vial) 20 mg SLOW IVP 0600,1800 [facility] Last Admin: 04/25/20 06:36 Dose: 20 mg Documented by: Isosorbide Mononitrate (Isosorbide Mononitrate Er 60 Mg Tab) 60 mg PO QAM [facility] Last Admin: 04/25/20 09:35 Dose: 60 mg Documented by: Levothyroxine Sodium (Levothyroxine Sodium 112 Mcg Tab) 112 mcg PO 0600 [facility] Last Admin: 04/25/20 06:36 Dose: 112 mcg Documented by: Metolazone (Metolazone 2.5 Mg Tab) 2.5 mg PO 0830 [facility] Miscellaneous Medication (Pharmacy To Dose Warfarin) 1 each IVPB .WARFARIN PRN PRN Reason: Pharmacy to dose Ondansetron HCl (Ondansetron Odt 4 Mg Tab) 4 mg PO Q6H PRN PRN Reason: Nausea/Vomiting Ondansetron HCl (Ondansetron Pf 4 Mg/2 Ml Vial) 4 mg IVP Q6H PRN PRN Reason: Nausea/Vomiting Senna/Docusate Sodium (Senokot S 8.6-50 Mg Tab) 2 tab PO BIDPRN PRN PRN Reason: Constipation Sertraline HCl (Sertraline Hcl 100 Mg Tab) 100 mg PO DAILY [facility] Last Admin: 04/25/20 09:35 Dose: 100 mg Documented by: Vital Signs & Weight: Vital Signs Temp Pulse Resp BP Pulse Ox 04/25/20 05:46 97.5 F L 55 L 18 132/66 98 04/25/20 01:00 54 L 116/68 04/25/20 00:15 97.5 F L 67 22 H 98 Admit Weight 175 lb 12.48 oz Weight 177 lb 1 oz - Physical Exam General: alert & oriented x3, no apparent distress HEENT: mucus membranes moist Cardiac: other (IRR IRR) Lungs: bibasilar rales Neuro: grossly intact Abdomen: distended Extremities: no edema Skin: clear Musculoskeletal: no pain - Labs Result Diagrams: 04/24/20 19:28 04/25/20 04:10 Troponin/CKMB CK-MB (CK-2) 3.4 ng/mL (0-6.6) 04/21/20 00:48 Troponin I 0.044 ng/mL (< 0.028) H 04/21/20 00:48 - Assessment/Plan Assessment/Plan: 1. Acute diastolic CHF 2. 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 Hx DVT 4. Deconditioning Will continue to diurese. Continue PT. INR thereapeutic. Warfarin already held.
[2020-04-25] MEDS: Metolazone 2.5 MG TAB PO SCH (09:55)
--- NOTE | 2020-04-25 17:56 | PDOC.HOSPP ---
- Subjective Encounter Date: 04/25/20 Encounter Time: 09:00 Subjective: F/u: severe MR The patient is still short of breath slightly. She is still very weak and was only able to do supine exercises despite normal oxygen saturation. She did cough up some blood still . INR is 3.1 today Cardiology has recommended outpatient evaluation of mitral regurgitation - Objective Vital Signs & Weight: Vital Signs (12 hours) Temp Pulse Resp BP BP BP BP 04/25/20 15:00 97.6 F 64 18 04/25/20 11:05 97.4 F L 61 18 04/25/20 10:01 117/75 122/63 112/76 104/57 L 04/25/20 07:45 97.2 F L 66 18 BP BP Pulse Ox Pulse Ox Pulse Ox 04/25/20 15:00 114/58 L 100 04/25/20 11:05 115/55 L 98 04/25/20 10:01 114/63 99 98 04/25/20 07:45 120/65 98 Weight Admit Weight 175 lb 12.48 oz Weight 177 lb 1 oz Most Recent Monitor Data Heart Rate from ECG 61 NIBP 97/60 NIBP BP-Mean 72 Respiration from ECG 17 SpO2 98 I&O: 04/24/20 04/25/20 04/26/20 06:59 06:59 06:59 Intake Total 132 870 Output Total 150 900 Balance -18 30 Result Diagrams: 04/24/20 19:28 04/25/20 04:10 Hospitalist ROS - Review of Systems Constitutional: denies: fever, chills - Medication Medications: Active Medications Generic Name Dose Route Start Last Admin Trade Name Alonsoq PRN Reason Stop Dose Admin Acetaminophen 650 mg 04/18/20 19:29 04/21/20 20:16 Acetaminophen 325 Mg Tab PO 650 mg Q4H PRN Administration Headache/Fever/Mild Pain (1-3) Albuterol/Ipratropium 3 ml 04/18/20 22:30 04/21/20 21:38 Ipratropium/Albuterol Sulfate 3 Ml Neb NEB 3 ml [id number] PRN Administration SOB &/or Wheezing Aspirin 81 mg 04/20/20 09:00 04/25/20 09:35 Aspirin 81 Mg Enteric Coated Tablet PO 81 mg DAILY DANGELO Administration Atorvastatin Calcium 40 mg 04/20/20 21:00 04/24/20 20:44 Atorvastatin Calcium 40 Mg Tab PO 40 mg HS DANGELO Administration Carvedilol 3.125 mg 04/19/20 17:00 04/25/20 17:50 Carvedilol 3.125 Mg Tab PO 3.125 mg BID-WM DANGELO Administration Cosyntropin 250 mcg 04/21/20 11:30 04/21/20 12:45 Cosyntropin 250 Mcg Vial SLOW IVP 250 mcg WILLCALL DANGELO Administration Furosemide 20 mg 04/24/20 18:00 04/25/20 17:50 Furosemide 20 Mg/2 Ml Vial SLOW IVP 20 mg 0600,1800 DANGELO Administration Isosorbide Mononitrate 60 mg 04/21/20 09:00 04/25/20 09:35 Isosorbide Mononitrate Er 60 Mg Tab PO 60 mg QAM DANGELO Administration Levothyroxine Sodium 112 mcg 04/20/20 06:00 04/25/20 06:36 Levothyroxine Sodium 112 Mcg Tab PO 112 mcg 0600 DANGELO Administration Metolazone 2.5 mg 04/25/20 08:30 04/25/20 09:55 Metolazone 2.5 Mg Tab PO 2.5 mg 0830 DANGELO Administration Sertraline HCl 100 mg 04/20/20 09:00 04/25/20 09:35 Sertraline Hcl 100 Mg Tab PO 100 mg DAILY DANGELO Administration - Exam General Appearance: NAD, awake alert Eye: PERRL, anicteric sclera ENT: normocephalic atraumatic, no oropharyngeal lesions Neck: no JVD Heart: RRR, no murmur, no gallops, no rubs Respiratory - other findings: mild wheezing at the right lung base Hosp A/P - Plan ECHO: EF 50-55%, increased right atrial size. Severe MR, severe TR. Vascular US: deep femoral DVT THis is an 84 year old female who presented with shortness of breath. She was found to have Acute diastolic heart failure possibly from severe MR - chest X ray 1/2 shows small bilateral pleural effusions. Continue diureses with IV lasix 20 mg bid - cardiology recommends outpatient evaluation of severe MR - PT has recommended rehab, will place case management consult - continue coreg, losartan, aspirin, statin Hemoptysis - INR 3.1, continue to hold warfarin. Repeat chest Xray stable Deep femoral DVT - will hold warfarin today since INR 3.1 and patient has small hemoptysis JORGE - creatinine improved to 1.2. Continue with IV lasix Hypothyroidism - continue levothyroxine Hypertension - continue losartan 25 mg daily
[2020-04-25] MEDS: Atorvastatin Calcium 40 MG TAB PO SCH (20:25)
[2020-04-26 04:43] LABS: INR-International Normal Ratio 2.7
[2020-04-26 04:46] LABS: Hemoglobin 10.7 g/dL (12.0-16.0); Platelet Count 86 thou/uL (130-400)
[2020-04-26 04:56] LABS: Anion Gap 13 mmol/L (10-20); BUN (Urea Nitrogen) 41 mg/dL (9.8-20.1); Calc. Creatinine Clearance 39 mL/min (70-130); Calcium 8.6 mg/dL (7.8-10.44); Carbon Dioxide 27 mmol/L (23-31); Chloride 102 mmol/L (98-107); Glucose 115 mg/dL (83-110); Sodium 138 mmol/L (136-145)
[2020-04-26] MEDS: Furosemide 20 MG/2 ML VIAL SLOW IVP SCH ×2 (05:14→17:59)
[2020-04-26] MEDS: Levothyroxine Sodium 112 MCG TAB PO SCH (05:14)
[2020-04-26] MEDS: Metolazone 2.5 MG TAB PO SCH (08:58)
[2020-04-26] MEDS: Aspirin 81 mg Enteric Coated Tablet PO SCH (08:58)
[2020-04-26] MEDS: Carvedilol 3.125 MG TAB PO SCH ×2 (08:58→17:59)
[2020-04-26] MEDS: Warfarin Sodium 5 MG TAB PO SCH ×2 (12:38→18:01)
--- NOTE | 2020-04-26 17:12 | PDOC.HOSPP ---
- Subjective Encounter Date: 04/26/20 Encounter Time: 10:30 Subjective: F/U Severe MR Ms. Mansfield states she is still slightly short of breath. She does not report coughing up any more blood and INR is 2.7 today. During home O2 evaluation, patient oxygen dipped to 92% on room air. Improved to 98% with 2L. Patient inquired about when she can get home oxygen and go home. Cardiology recommends outpatient mitral regurgitation workup. - Objective Vital Signs & Weight: Vital Signs (12 hours) Temp Pulse Resp BP Pulse Ox 04/26/20 16:00 97.5 F L 68 18 132/75 98 04/26/20 12:00 97.4 F L 65 18 108/66 93 L 04/26/20 08:50 97.8 F 75 17 123/58 L 99 Weight Admit Weight 175 lb 12.48 oz Weight 177 lb 1 oz Most Recent Monitor Data Heart Rate from ECG 61 NIBP 97/60 NIBP BP-Mean 72 Respiration from ECG 17 SpO2 98 I&O: 04/25/20 04/26/20 04/27/20 06:59 06:59 06:59 Intake Total 870 970 597 Output Total 900 2200 Balance -30 -1230 597 Result Diagrams: 04/26/20 03:54 04/26/20 03:49 Hospitalist ROS - Review of Systems Constitutional: denies: fever, chills Respiratory: reports: shortness of breath Cardiovascular: denies: chest pain Gastrointestinal: denies: nausea, vomiting - Medication Medications: Active Medications Generic Name Dose Route Start Last Admin Trade Name Freq PRN Reason Stop Dose Admin Acetaminophen 650 mg 04/18/20 19:29 04/21/20 20:16 Acetaminophen 325 Mg Tab PO 650 mg Q4H PRN Administration Headache/Fever/Mild Pain (1-3) Albuterol/Ipratropium 3 ml 04/18/20 22:30 04/21/20 21:38 Ipratropium/Albuterol Sulfate 3 Ml Neb NEB 3 ml [id number] PRN Administration SOB &/or Wheezing Aspirin 81 mg 04/20/20 09:00 04/26/20 08:58 Aspirin 81 Mg Enteric Coated Tablet PO 81 mg DAILY DANGELO Administration Atorvastatin Calcium 40 mg 04/20/20 21:00 04/25/20 20:25 Atorvastatin Calcium 40 Mg Tab PO 40 mg HS DANGELO Administration Carvedilol 3.125 mg 04/19/20 17:00 04/26/20 08:58 Carvedilol 3.125 Mg Tab PO 3.125 mg BID-WM DANGELO Administration Cosyntropin 250 mcg 04/21/20 11:30 04/21/20 12:45 Cosyntropin 250 Mcg Vial SLOW IVP 250 mcg WILLCALL DANGELO Administration Furosemide 20 mg 04/24/20 18:00 04/26/20 05:14 Furosemide 20 Mg/2 Ml Vial SLOW IVP 20 mg 0600,1800 DANGELO Administration Isosorbide Mononitrate 60 mg 04/21/20 09:00 04/26/20 08:58 Isosorbide Mononitrate Er 60 Mg Tab PO 60 mg QAM DANGELO Administration Levothyroxine Sodium 112 mcg 04/20/20 06:00 04/26/20 05:14 Levothyroxine Sodium 112 Mcg Tab PO 112 mcg 0600 DANGELO Administration Metolazone 2.5 mg 04/25/20 08:30 04/26/20 08:58 Metolazone 2.5 Mg Tab PO 2.5 mg 0830 DANGELO Administration Sertraline HCl 100 mg 04/20/20 09:00 04/26/20 08:58 Sertraline Hcl 100 Mg Tab PO 100 mg DAILY DANGELO Administration Warfarin Sodium 5 mg 04/25/20 17:00 04/26/20 12:38 Warfarin Sodium 5 Mg Tab PO Not Given 1700 [facility] - Exam General Appearance: NAD, awake alert Eye: PERRL, anicteric sclera ENT: normocephalic atraumatic, no oropharyngeal lesions Neck: no JVD Heart: RRR, no murmur, no gallops, no rubs Respiratory - other findings: Mild wheezing Skin: normal turgor Hosp A/P - Plan ECHO: EF 50-55%, increased right atrial size. Severe MR, severe TR. Vascular US: deep femoral DVT This is an 84 year old female who presented with shortness of breath. She was found to have severe MR, severe TR, and EF of 50-55% Acute diastolic heart failure possibly from severe MR - chest X ray 1/2 shows small bilateral pleural effusions. Continue diureses with IV lasix 20 mg bid - cardiology recommends outpatient evaluation of severe MR - PT has recommended rehab but patient wants to return home - continue coreg, losartan, aspirin, statin -Awaiting home oxygen Hemoptysis - Patient reports no hemoptysis today -INR 2.7, continue to hold warfarin. Repeat chest Xray stable Deep femoral DVT - will hold warfarin today since INR 2.7 and patient has denies hemoptysis JORGE - creatinine improved to 1.36. Continue with IV lasix Hypothyroidism - continue levothyroxine Hypertension - continue losartan 25 mg daily Attending attestation: I have seen and examined the patient with the medical student and agree with assessment and plan Patient states that she feels about the same. She still has a mild wheeze. She has been weaned down to room air at rest but still desaturates on exertion. She is being set up for home oxygen. Patient is still very weak while ambulating however she declines physical therapy and states that her went to outpatient PT and did not benefit. She does not want home PT either On exam: There are some scattered wheezes in her lungs. No heart murmurs. There is no edema or JVD Assessment and plan: #Acute diastolic heart failure from severe MR #Hemoptysis #Deep femoral vein DVT #JORGE -Continue IV diuretics for 1 more day possibly until her creatinine is at baseline. Continue to hold her Coumadin with her supratherapeutic INR. Will trial 1 dose of oral prednisone 40 mg for wheezing. Continue breathing treatments. Hopefully can be discharged tomorrow
[2020-04-26 17:49] VITALS: BMI 25.0
--- NOTE | 2020-04-26 18:21 | PDOC.CPN ---
- Subjective Date: 04/26/20 Time: 12:30 Interval history: patient says she feels better today. Has been up to chair. No new issues. - Review of Systems General: denies: fever/chills, weight/appetite/sleep changes, night sweats, fatigue Respiratory: reports: shortness of breath, exercise intolerance Cardiovascular: denies: chest pain, palpitation, edema, paroxysmal nocturnal dyspnea, orthopnea Gastrointestinal: denies: nausea, vomiting, diarrhea, constipation, abd pain, GI bleeding Musculoskeletal: denies: pain, tenderness, stiffness, swelling, arthrit is/arthralgias Neurological: reports: weakness - Objective Allergies/Adverse Reactions: Allergies Allergy/AdvReac Type Severity Reaction Status Date / Time Iodinated Contrast Media Allergy Verified 04/19/20 17:40 [Iodinated Contrast Media - IV Dye] shellfish derived Allergy Verified 04/19/20 17:40 Visit Medications: Current Medications Acetaminophen (Acetaminophen 325 Mg Tab) 650 mg PO Q4H PRN PRN Reason: Headache/Fever/Mild Pain (1-3) Last Admin: 04/21/20 20:16 Dose: 650 mg Documented by: Acetaminophen (Acetaminophen 650 Mg Suppository) 650 mg [place] Q4H PRN PRN Reason: Headache/Fever/Mild Pain (1-3) Albuterol/Ipratropium (Ipratropium/Albuterol Sulfate 3 Ml Neb) 3 ml NEB [id number] PRN PRN Reason: SOB &/or Wheezing Last Admin: 04/21/20 21:38 Dose: 3 ml Documented by: Aspirin (Aspirin 81 Mg Enteric Coated Tablet) 81 mg PO DAILY [facility] Last Admin: 04/26/20 08:58 Dose: 81 mg Documented by: Atorvastatin Calcium (Atorvastatin Calcium 40 Mg Tab) 40 mg PO [facility] Last Admin: 04/25/20 20:25 Dose: 40 mg Documented by: Carvedilol (Carvedilol 3.125 Mg Tab) 3.125 mg PO BID-[facility] Last Admin: 04/26/20 17:59 Dose: 3.125 mg Documented by: Cosyntropin (Cosyntropin 250 Mcg Vial) 250 mcg SLOW IVP WILLCALL [facility] Last Admin: 04/21/20 12:45 Dose: 250 mcg Documented by: Furosemide (Furosemide 20 Mg/2 Ml Vial) 20 mg SLOW IVP 0600,1800 [facility] Last Admin: 04/26/20 17:59 Dose: 20 mg Documented by: Isosorbide Mononitrate (Isosorbide Mononitrate Er 60 Mg Tab) 60 mg PO QAM [facility] Last Admin: 04/26/20 08:58 Dose: 60 mg Documented by: Levothyroxine Sodium (Levothyroxine Sodium 112 Mcg Tab) 112 mcg PO 0600 [facility] Last Admin: 04/26/20 05:14 Dose: 112 mcg Documented by: Metolazone (Metolazone 2.5 Mg Tab) 2.5 mg PO 0830 [facility] Last Admin: 04/26/20 08:58 Dose: 2.5 mg Documented by: Miscellaneous Medication (Pharmacy To Dose Warfarin) 1 each IVPB .WARFARIN PRN PRN Reason: Pharmacy to dose Ondansetron HCl (Ondansetron Odt 4 Mg Tab) 4 mg PO Q6H PRN PRN Reason: Nausea/Vomiting Ondansetron HCl (Ondansetron Pf 4 Mg/2 Ml Vial) 4 mg IVP Q6H PRN PRN Reason: Nausea/Vomiting Senna/Docusate Sodium (Senokot S 8.6-50 Mg Tab) 2 tab PO BIDPRN PRN PRN Reason: Constipation Sertraline HCl (Sertraline Hcl 100 Mg Tab) 100 mg PO DAILY [facility] Last Admin: 04/26/20 08:58 Dose: 100 mg Documented by: Warfarin Sodium (Warfarin Sodium 5 Mg Tab) 5 mg PO 1700 [facility] Last Admin: 04/26/20 18:01 Dose: 5 mg Documented by: Vital Signs & Weight: Vital Signs Temp Pulse Resp BP Pulse Ox 04/26/20 16:00 97.5 F L 68 18 132/75 98 04/26/20 12:00 97.4 F L 65 18 108/66 93 L 04/26/20 08:50 97.8 F 75 17 123/58 L 99 Admit Weight 175 lb 12.48 oz Weight 174 lb - Physical Exam General: alert & oriented x3, appears well, no apparent distress HEENT: mucus membranes moist Neck: supple neck Cardiac: other (IRR IRR) Lungs: no wheeze, rales, rhonchi Neuro: grossly intact Abdomen: soft, non-tender Extremities: no cyanosis, no edema Skin: clear Musculoskeletal: no pain - Labs Result Diagrams: 04/26/20 03:54 04/26/20 03:49 Troponin/CKMB CK-MB (CK-2) 3.4 ng/mL (0-6.6) 04/21/20 00:48 Troponin I 0.044 ng/mL (< 0.028) H 04/21/20 00:48 - Assessment/Plan Assessment/Plan: 1. Acute diastolic CHF 2. 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 Hx DVT 4. Deconditioning Improved overnight. Will diureses one more day and consider discharge tomorrow. Patient will need rehab/PT and further diuresis prior to evaluation for MitraClip.
[2020-04-26] MEDS ORDERED: predniSONE 20 MG TAB PO SCH (18:30)
[2020-04-26] MEDS: Atorvastatin Calcium 40 MG TAB PO SCH (20:53)
[2020-04-27 04:31] LABS: INR-International Normal Ratio 2.2
[2020-04-27 04:47] LABS: Anion Gap 13 mmol/L (10-20); BUN (Urea Nitrogen) 41 mg/dL (9.8-20.1); Calc. Creatinine Clearance 39 mL/min (70-130); Calcium 8.8 mg/dL (7.8-10.44); Carbon Dioxide 31 mmol/L (23-31); Chloride 97 mmol/L (98-107); Glucose 169 mg/dL (83-110); Potassium 4.3 mmol/L (3.5-5.1); Sodium 137 mmol/L (136-145)
[2020-04-27] MEDS: Levothyroxine Sodium 112 MCG TAB PO SCH (06:12)
[2020-04-27] MEDS: Furosemide 20 MG/2 ML VIAL SLOW IVP SCH (06:12)
[2020-04-27] MEDS ORDERED: Furosemide 20 MG TAB PO SCH (09:00)
[2020-04-27] MEDS: Metolazone 2.5 MG TAB PO SCH (09:30)
[2020-04-27] MEDS: Aspirin 81 mg Enteric Coated Tablet PO SCH (09:30)
[2020-04-27] MEDS: Carvedilol 3.125 MG TAB PO SCH (09:31)
--- NOTE | 2020-04-27 09:31 | PDOC.CPN ---
- Subjective Date: 04/27/20 Time: 08:30 Interval history: No new events overnight or complaints. Still some SOB and weakness with slow improvement. - Review of Systems General: denies: fever/chills, weight/appetite/sleep changes, night sweats, fatigue Respiratory: reports: shortness of breath, exercise intolerance Cardiovascular: denies: chest pain, palpitation, edema, paroxysmal nocturnal dyspnea, orthopnea Gastrointestinal: denies: nausea, vomiting, diarrhea, constipation, abd pain, GI bleeding Musculoskeletal: denies: pain, tenderness, stiffness, swelling, arthritis/arthralgias Neurological: denies: numbness, syncope, seizure, weakness - Objective Allergies/Adverse Reactions: Allergies Allergy/AdvReac Type Severity Reaction Status Date / Time Iodinated Contrast Media Allergy Verified 04/19/20 17:40 [Iodinated Contrast Media - IV Dye] shellfish derived Allergy Verified 04/19/20 17:40 Visit Medications: Current Medications Acetaminophen (Acetaminophen 325 Mg Tab) 650 mg PO Q4H PRN PRN Reason: Headache/Fever/Mild Pain (1-3) Last Admin: 04/21/20 20:16 Dose: 650 mg Documented by: Acetaminophen (Acetaminophen 650 Mg Suppository) 650 mg [place] Q4H PRN PRN Reason: Headache/Fever/Mild Pain (1-3) Albuterol/Ipratropium (Ipratropium/Albuterol Sulfate 3 Ml Neb) 3 ml NEB [id number] PRN PRN Reason: SOB &/or Wheezing Last Admin: 04/21/20 21:38 Dose: 3 ml Documented by: Aspirin (Aspirin 81 Mg Enteric Coated Tablet) 81 mg PO DAILY [facility] Last Admin: 04/26/20 08:58 Dose: 81 mg Documented by: Atorvastatin Calcium (Atorvastatin Calcium 40 Mg Tab) 40 mg PO HS [facility] Last Admin: 04/26/20 20:53 Dose: 40 mg Documented by: Carvedilol (Carvedilol 3.125 Mg Tab) 3.125 mg PO BID[facility] Last Admin: 04/26/20 17:59 Dose: 3.125 mg Documented by: Cosyntropin (Cosyntropin 250 Mcg Vial) 250 mcg SLOW IVP WILLCALL [facility] Last Admin: 04/21/20 12:45 Dose: 250 mcg Documented by: Furosemide (Furosemide 20 Mg Tab) 20 mg PO DAILY [facility] Isosorbide Mononitrate (Isosorbide Mononitrate Er 60 Mg Tab) 60 mg PO QAM [facility] Last Admin: 04/26/20 08:58 Dose: 60 mg Documented by: Levothyroxine Sodium (Levothyroxine Sodium 112 Mcg Tab) 112 mcg PO 0600 [facility] Last Admin: 04/27/20 06:12 Dose: 112 mcg Documented by: Metolazone (Metolazone 2.5 Mg Tab) 2.5 mg PO 0830 [facility] Last Admin: 04/26/20 08:58 Dose: 2.5 mg Documented by: Miscellaneous Medication (Pharmacy To Dose Warfarin) 1 each IVPB .WARFARIN PRN PRN Reason: Pharmacy to dose Ondansetron HCl (Ondansetron Odt 4 Mg Tab) 4 mg PO Q6H PRN PRN Reason: Nausea/Vomiting Ondansetron HCl (Ondansetron Pf 4 Mg/2 Ml Vial) 4 mg IVP Q6H PRN PRN Reason: Nausea/Vomiting Senna/Docusate Sodium (Senokot S 8.6-50 Mg Tab) 2 tab PO BIDPRN PRN PRN Reason: Constipation Sertraline HCl (Sertraline Hcl 100 Mg Tab) 100 mg PO DAILY [facility] Last Admin: 04/26/20 08:58 Dose: 100 mg Documented by: Sodium Chloride (Flush - Normal Saline 10 Ml Syringe) 10 ml IVF Q12HR [facility] Sodium Chloride (Flush - Normal Saline 10 Ml Syringe) 10 ml IVF PRN PRN PRN Reason: Saline Flush Warfarin Sodium (Warfarin Sodium 5 Mg Tab) 5 mg PO 1700 [facility] Last Admin: 04/26/20 18:01 Dose: 5 mg Documented by: Vital Signs & Weight: Vital Signs Temp Pulse Resp BP Pulse Ox 04/27/20 07:45 97.8 F 65 22 H 136/62 98 04/27/20 03:20 98.0 F 64 18 113/69 95 Admit Weight 175 lb 12.48 oz Weight 174 lb - Physical Exam General: alert & oriented x3, appears well HEENT: mucus membranes moist Neck: supple neck Cardiac: other (IRR IRR) Lungs: no wheeze, rales, rhonchi Neuro: grossly intact Abdomen: soft, other (mildly distended) Extremities: no edema Skin: clear Musculoskeletal: no pain - Labs Result Diagrams: 04/26/20 03:54 04/27/20 04:06 Troponin/CKMB CK-MB (CK-2) 3.4 ng/mL (0-6.6) 04/21/20 00:48 Troponin I 0.044 ng/mL (< 0.028) H 04/21/20 00:48 - Assessment/Plan Assessment/Plan: 1. Acute diastolic CHF 2. 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 Hx DVT 4. Deconditioning 5. CKD Slow, but steady improvement. Would be ok for discharge form my standpoint when home O2 can be arranged. Suggest zaroxolyn be given at 2.5mg Mondays and starting at the time of discharge. Will f/u as outpatient.
[2020-04-27] MEDS ORDERED: Metolazone 2.5 MG TAB PO SCH (09:45)
[2020-04-27 12:20] VITALS: BP 130/59; TEMP 97.7
--- NOTE | 2020-04-27 17:53 | PDOC.DS.DS ---
Provider - Provider Date of Admission: 04/18/20 18:25 Date of Discharge: 04/27/20 Admitting Provider: Simona Roper MD Consultations: Cardiology (Dr. Werner Ward) Primary Care Physician: Unknown Course - Hospital Course Hospital Course: Discharge Diagnoses: 1. Acute diastolic heart failure from severe MR 2. Hemoptysis from supratherapeutic INR 3. Deep femoral DVT 4. JORGE Brief HPI: 84-year-old female who presented to the emergency room with increasing shortness of breath over the past few days and increasing leg swelling. Her O2 saturation is 96% on room air. Chest x-ray showed an enlarged heart but no pulmonary edema or pneumonia. CTA of the chest was negative for PE. The patient was on IV steroids and admitted for further work-up. Hospital Course: Acute hypoxic respiratory failure from acute diastolic heart failure possibly from severe MR : Patient had 3 sets of troponins which were negative. On 04/23, chest x-ray showed mild bilateral pulmonary edema. She was started on IV Lasix. Echo showed an EF of 55% with severe mitral regurgitation and severe tricuspid regurgitation. Cardiology was consulted. They recommended outpatient evaluation of her severe MR. The patient did require 2 L of oxygen while in the hospital. She was eventually weaned off oxygen and did not require it at rest. However on exertion she did desaturate to 70%, therefore we attempted to set her up with home oxygen on exertion. Unfortunately, the patient's insurance requi res a co-pay of $17 per month and the patient refused to pay this. Her has oxygen and she will use his. Therefore, she was discharged without oxygen and she will follow up with her PCP. She will be discharged with Lasix and metolazone to be taken on Mondays and . He was seen by physical therapy who recommended rehab. However the, the patient refused and declined any home health services as well. Hemoptysis: Patient had an INR of 3.1. Her Coumadin was held and her hemoptysis improved. Her INR was 2.2 the time of discharge. She was advised to resume her warfarin at 2.55 mg and have her INR checked tomorrow at the Coumadin clinic. Deep femoral DVT: Ultrasound of her legs in the emergency room showed a left femoral vein DVT. She was started on anticoagulation which was held for a few days due to supratherapeutic INR and hemoptysis. Her INR came down to 2.2, therefore her Coumadin will be resumed on discharge. JORGE: She presented to creatinine of 1.5 which improved to 1.34 at the time of discharge. She will continue Lasix on discharge and should get a repeat BMP in a week Pertinent Studies: CTA chest 04/18: no PE, cardiomegaly. Small right pleural fluid. Few clustered nodules in the left lower lobe. Chest Xray 04/24: small bilateral pleural effusions. ECHO 04/20: severe TR, severe MR, EF 50-55%. Resuscitation Status: 04/18/20 19:29 Resuscitation Status Routine Resuscitation Status: FULL: Full Resuscitation - Labs Lab Results: 04/26/20 03:54 04/27/20 04:06 Abnormal Lab Results - Last 48 hrs 04/26/20 03:49: PT 29.0 H 04/26/20 03:49: BUN 41 H, Creatinine 1.36 H 04/26/20 03:54: Hgb 10.7 L, Hct 33.4 L, Plt Count 86 L 04/27/20 04:06: PT 25.0 H 04/27/20 04:06: Chloride 97 L, BUN 41 H, Creatinine 1.34 H - Physical Exam Vitals: Vital Signs (12 hours) Temp Pulse Resp BP Pulse Ox 04/27/20 12:00 97.7 F 57 L 22 H 130/59 L 92 L 04/27/20 07:45 97.8 F 65 22 H 136/62 98 Weight Admit Weight 175 lb 12.48 oz Weight 175 lb Most Recent Monitor Data Heart Rate from ECG 61 NIBP 97/60 NIBP BP-Mean 72 Respiration from ECG 17 SpO2 98 Physical Exam: The patient was seen and examined on the day of discharge. Plan - Discharge Medications Prescriptions: Furosemide [Lasix] 20 mg PO DAILY #30 tab Atorvastatin Calcium [Lipitor] 40 mg PO HS #30 tab Metolazone [Zaroxolyn] 2.5 mg PO DAILY #8 tab Home Medications: Medication Instructions Recorded Confirmed Type Sertraline HCl [Zoloft] 100 mg PO DAILY #0 tab 04/08/15 04/19/20 Rx Isosorbide Mononitrate [Imdur ER] 30 mg PO QAM 07/03/15 04/19/20 History Levothyroxine Sodium [Synthroid] 112 mcg PO QAM 07/20/16 04/19/20 History Carvedilol [Coreg] 3.125 mg PO BID-WM 30 Days tab 06/24/17 04/19/20 Rx Aspirin [Ecotrin Low Strength] 81 mg PO DAILY 12/13/18 04/19/20 History Atorvastatin Calcium [Lipitor] 40 mg PO HS #30 tab 04/27/20 Rx Furosemide [Lasix] 20 mg PO DAILY #30 tab 04/27/20 Rx Metolazone [Zaroxolyn] 2.5 mg PO DAILY #8 tab 04/27/20 Rx Warfarin Sodium 2.5 tab PO DAILY #30 04/27/20 04/19/20 Rx Allergies: Iodinated Contrast Media [Iodinated Contrast Media - IV Dye] Allergy (Verified 04/19/20 17:40) shellfish derived Allergy (Verified 04/19/20 17:40) - Discharge Instructions Activity:: Activity as Tolerated Nourishment:: Fluid Restriction Diet (2L fluid restriction ), Heart Healthy Diet - Follow up Plan Referrals: Suleman Cabral Jr, MD [Active] - 7 Days (DR CABRAL'S OFFICE, [facility], WILL CALL PATIENT TO ARRANGE FOLLOW UP VIRTUAL VISIT. ) [facility]iders] - 04/28/20 1:00 pm ([phone]) Disposition: HOME Quality - Care Measures CORE MEASURES:: N/A
[2020-04-28] MEDS ORDERED: Metolazone 2.5 MG TAB PO SCH (08:30)
== END 2020-04-27 16:11 | disposition home or self-care (01) | DRG 299 ==
LOC: ERS 12:36 → ERHOLD 18:25 → 2NO 04-19 17:24 → CCU 04-20 21:26 → 2NO 04-22 20:27
PROVIDERS: ADMIT Family Medicine; ATTEND Emergency Medicine
PROC: 02HV33Z Insertion of Infusion Device into Superior Vena Cava, Percutaneous Approach (ICD-10-PCS; principal; 2020-04-20)
PROC: B548ZZA Ultrasonography of Superior Vena Cava, Guidance (ICD-10-PCS; 2020-04-20)
PROC: 3E043XZ Introduction of Vasopressor into Central Vein, Percutaneous Approach (ICD-10-PCS; 2020-04-20)
DX: I82.412 Acute embolism and thrombosis of left femoral vein (principal); I50.31 Acute diastolic (congestive) heart failure; J96.01 Acute respiratory failure with hypoxia; R57.0 Cardiogenic shock; R04.2 Hemoptysis; N17.9 Acute kidney failure, unspecified; I48.20 Chronic atrial fibrillation, unspecified; Z20.822 Contact with and (suspected) exposure to COVID-19; I34.0 Nonrheumatic mitral (valve) insufficiency; I12.9 Hypertensive chronic kidney disease with stage 1 through stage 4 chronic kidney disease, or unspecified chronic kidney disease; I25.10 Atherosclerotic heart disease of native coronary artery without angina pectoris; E03.9 Hypothyroidism, unspecified; F41.9 Anxiety disorder, unspecified; N20.0 Calculus of kidney; N18.9 Chronic kidney disease, unspecified; I95.89 Other hypotension; Z91.041 Radiographic dye allergy status; Z91.013 Allergy to seafood; I25.2 Old myocardial infarction; Z95.1 Presence of aortocoronary bypass graft; Z90.49 Acquired absence of other specified parts of digestive tract; Z90.710 Acquired absence of both cervix and uterus; Z79.02 Long term (current) use of antithrombotics/antiplatelets; Z79.890 Hormone replacement therapy; Z79.899 Other long term (current) drug therapy; Z79.01 Long term (current) use of anticoagulants
CPT/HCPCS: 36415; 36416; 36600; 51701; 71045; 71275; 80048; 80053; 80061; 80400; 81003; 81015; 82553; 82805; 83605; 83735; 83880; 84145; 84443; 84484; 85007; 85014; 85018; 85025; 85027; 85049; 85379; 85610; 85730; 86850; 86900; 86901; 86922; 87635; 93005; 93306; 94640; 96365; 96366; 96375; J0456; J0696; J0834; J1200; J1644; J1940; J2930; J3490; J7050; J7512; J7620; Q9967; S0028; U0003